=== PATIENT | female | born 1930 | race Caucasian/White ===

== ENCOUNTER 2016-05-26 19:45 | Inpatient (IN) ==
[2016-05-26 22:17] LABS: Basophils % 0.2 %; Eosinophils % 0.3 %; Hematocrit 37.9 % (35.3-44.9); Hemoglobin 12.3 g/dL (11.5-15.4); Immature Granulocytes % 0.6 % (0-4); Lymphocytes # 1.3 K/mcL (0.6-4.6); Lymphocytes % 8.9 %; Mean Corpuscular HGB Conc 32.5 g/dL (31.6-35.5); Mean Corpuscular Hemoglobin 27.8 pg (28.0-33.3); Mean Corpuscular Volume 85.6 fL (83.0-100.0); Monocytes # 1.3 K/mcL (0.0-1.3); Monocytes % 9.2 %; Neutrophils # 11.6 K/mcL (1.6-8.9); Platelet Count 369 K/mcL (140-400); Red Blood Count 4.43 M/mcL (3.82-4.97); Red Cell Distribution Width 15.5 % (11.5-14.5); Segmented Neutrophils % 80.8 %
[2016-05-26 22:29] LABS: Potassium 4.1 mEq/L (3.5-4.5)
[2016-05-26] MEDS ORDERED: 0.9 % Sodium Chloride 500 ML IV ONE (22:52)
--- NOTE | 2016-05-26 23:18 | Emergency Department Note ---
Disposition Clinical Impression: Acute kidney injury Hip fracture, left Qualifiers: Encounter type: initial encounter Fracture type: closed Qualified Code(s): S72.002A - Fracture of unspecified part of neck of left femur, initial encounter for closed fracture Leukocytosis Qualifiers: Leukocytosis type: other Qualified Code(s): D72.828 - Other elevated white blood cell count Disposition: Admitted As Inpatient Condition: Good Lower Extremity Injury HPI - General Chief Complaint: ED Extremity Injury, Lower Stated Complaint: Fall, R leg injury Time Seen by Provider: 05/26/16 21:09 Source: family Limitations: no limitations Nursing Notes Reviewed: Yes Vital Signs Reviewed: Yes - History of Present Illness HPI Narrative: Patient here after being called by urgent care for positive left hip fracture. Patient been taken there after sustaining a fall on [address]. Patient had been having difficulty with walking over for the past several days and has not been doing much so they took her there for evaluation. It is unknown whether the patient fell from mechanical or syncopal event. Patient has history of Alzheimer's and the daughter has been very protective of her not wanting to put her in a fpc or have her care for another way. Daughter is somewhat progressive. Nursing staff does have some concern about patient's home situation. Patient currently unable to do review of systems due to dementia. Pain seems to be localized to the left hip and left knee. - Related Data Home Medications Medication Instructions Recorded Confirmed Donepezil HCl [Donepezil HCl Odt] 10 mg PO HS 02/09/16 05/26/16 Levothyroxine [Synthroid] 100 mcg PO DAILY 02/09/16 05/26/16 Lisinopril [Zestril] 10 mg PO BID 02/09/16 05/26/16 Acetaminophen w/Cod 300-30 mg 1 tab PO Q6H PRN 05/26/16 05/26/16 [Tylenol w/Codeine #3] Cephalexin [Keflex] 500 mg PO TID 05/26/16 05/26/16 ClonazePAM [Klonopin] 0.5 mg PO QID 05/26/16 05/26/16 Diltiazem HCl [Cartia Xt] 180 mg PO HS 05/26/16 05/26/16 FLUoxetine HCl [PROzac] 20 mg PO DAILY 05/26/16 05/26/16 Glimepiride [Glimepiride] 1 mg PO DAILY 05/26/16 05/26/16 HYDROcodone/Acet 5/325 mg [[place] 1 tab PO Q6H PRN 05/26/16 05/26/16 5-325 mg] Hydroxyzine HCl 25 mg PO QID 05/26/16 05/26/16 Previous Rx's Medication Instructions Recorded Aspirin 81 mg PO DAILY tab.chew 02/13/16 Simvastatin [Zocor] 40 mg PO HS tablet 02/13/16 Allergies Allergy/AdvReac Type Severity Reaction Status Date / Time No Known Allergies Allergy Verified 05/26/16 20:37 Limitations: ROS unobtainable due to patients medical condition Past Medical History - Past Medical History Medical history: Reports: dementia, diabetes, atrial fibrillation, hypertension , thyroid disease Psychiatric history: Reports: anxiety - Social History Smoking Status: Former smoker Smokeless Tobacco Status: No Alcohol use: Reports: none Drug use: Reports: none Physical Exam - General Limitations: no limitations General appearance: alert - Head Head exam: atraumatic, normocephalic - Eye Eye exam: Present: normal appearance - ENT ENT exam: normal exam, mucous membranes dry - Neck Neck exam: Present: normal inspection - Chest Chest inspection: Present: normal inspection - Respiratory Respiratory exam: Present: normal lung sounds bilaterally. Absent: respiratory distress - Cardiovascular Cardiovascular exam: Present: regular rate, normal rhythm - Abdominal Exam Abdominal exam: Present: soft, Non-Tender - Extremities Exam Extremities exam: Present: normal inspection - Skin Skin exam: Present: warm, dry, intact Course - Reevaluation(s) Reevaluation #1: Screening labs ordered. Patient not in pain and less leg is manipulated. We will continue to monitor for treatment pain. - Consultations Consultation #1: Discussed with Dr. Greer. Patient to be admitted for preoperative clearance. Vital Signs Temperature 97.7 F 05/26/16 20:31 Pulse Rate 107 05/26/16 20:31 Respiratory Rate 16 05/26/16 20:31 Blood Pressure 136/76 05/26/16 20:31 O2 Sat by Pulse Oximetry 98 05/26/16 20:31 Temperature 97.7 F 05/26/16 20:31 Pulse Rate 107 05/26/16 20:31 Respiratory Rate 16 05/26/16 23:51 Blood Pressure 142/70 05/26/16 23:51 O2 Sat by Pulse Oximetry 98 05/26/16 20:31 Oxygen Delivery Oxygen Delivery Room Air Extremity Injury, Lower - Lab Data Result diagrams: 05/26/16 22:05 05/26/16 22:05 Lab Results 05/26/16 05/26/16 Range/Units 22:05 22:05 WBC 14.4 H (4.3-11.1) K/mcL RBC 4.43 (3.82-4.97) M/mcL Hgb 12.3 (11.5-15.4) g/dL Hct 37.9 (35.3-44.9) % MCV 85.6 (83.0-100.0) fL MCH 27.8 L (28.0-33.3) pg MCHC 32.5 (31.6-35.5) g/dL RDW 15.5 H (11.5-14.5) % Plt Count 369 (140-400) K/mcL MPV 9.0 L (9.4-12.4) fL Immature Gran % 0.6 (0-4) % Seg Neutrophils % 80.8 % Lymphocytes % 8.9 % Monocytes % 9.2 % Eosinophils % 0.3 % Basophils % 0.2 % Neutrophils # 11.6 H (1.6-8.9) K/mcL Lymphocytes # 1.3 (0.6-4.6) K/mcL Monocytes # 1.3 (0.0-1.3) K/mcL Eosinophils # 0.0 (0.0-0.6) K/mcL Basophils # 0.0 (0.0-0.2) K/mcL Sodium 136 (136-145) mEq/L Potassium 4.1 (3.5-4.5) mEq/L Chloride 103 (98-109) mEq/L Carbon Dioxide 19 (19-29) mEq/L BUN 37 H (7-20) mg/dL Creatinine 1.46 H (0.57-1.11) mg/dL Est GFR ( Amer) 41 L (> 60) Est GFR (Non-Af Amer) 34 L (> 60) BUN/Creatinine Ratio 25 (6-26) Glucose 430 H (70-99) mg/dL Calculated Osmolality 309 H (280-300) Calcium 9.0 (8.6-10.8) mg/dL Attestation Statement - Attestation Attestation: Dr Cain note: Pt seen in conjunction w/ Resident Nixon Corona; I spent face to face time w/ pt and agree w/ the pt's treatment and disposition; See his charting for complete documentation; I have reviewed the lab results; imaging of the left hip was reviewed. Patient's story at home is vague. The family member at the bedside is very agitated and over bearing when we examine the patient. Patient follows commands. There was no witnessed mechanism of injury but they realized the patient has been nonambulatory for 3 days in bed. No signs of head trauma. The admitting doctor was informed of the strange family dynamics. She is admitted in stabilized and improved condition. dehydrated and in need of orthopedic and medical care
[2016-05-26] MEDS ORDERED: Dextrose Gel 15 GM PO PRN ×2 (23:42)
[2016-05-26] MEDS ORDERED: Ipratropium/Albuterol Neb 3 ML IH PRN (23:42)
[2016-05-26] MEDS ORDERED: *HR* OxyCODONE Immed Rel 5 MG TABLET PO PRN (23:42)
[2016-05-26] MEDS ORDERED: Ondansetron 4 MG/2 ML VIAL IVP PRN (23:42)
[2016-05-26] MEDS ORDERED: Naloxone 0.4 MG/ML INJ IVP PRN (23:42)
[2016-05-26] MEDS ORDERED: *HR* Dextrose 50 % in Water (Syg) 50 ML SYRINGE IVP PRN (23:42)
[2016-05-26] MEDS ORDERED: *HR* Morphine 2 MG/ML SYRINGE IVP PRN (23:42)
[2016-05-26] MEDS ORDERED: D5% in Water 1,000 ML IV PRN (23:42)
[2016-05-26] MEDS ORDERED: 0.9 % Sodium Chloride 1,000 ML IVC SCH (23:45)
[2016-05-26] MEDS ORDERED: Insulin LISPRO 300 UNITS/3 ML VIAL SQ ONE (23:50)
--- NOTE | 2016-05-26 23:57 | Internal Med History&Physical ---
Date of Encounter: 05/26/16 Time of Encounter: 23:00 Assessment and Plan (1) Chronic atrial fibrillation Current visit: Yes Status: Chronic . (2) Diabetic hyperosmolar non-ketotic state Current visit: Yes Status: Acute . (3) Acute kidney injury Current visit: Yes Status: Acute . (4) Hip fracture, left Current visit: Yes Status: Acute . Qualifiers: Encounter type: initial encounter Fracture type: closed Qualified Code(s) : S72.002A - Fracture of unspecified part of neck of left femur, initial encounter for closed fracture (5) Age-related physical debility Current visit: Yes Status: Chronic . (6) Mixed hyperlipidemia Current visit: Yes Status: Chronic . (7) Multiple falls Current visit: Yes Status: Acute . (8) Systemic inflammatory response syndrome Current visit: Yes Status: Acute . (9) Dementia Current visit: Yes Status: Chronic . Qualifiers: Dementia type: Alzheimer's disease Alzheimer's disease onset: late-onset Dementia behavioral disturbance: with behavioral disturbance Qualified Code(s) : G30.1 - Alzheimer's disease with late onset; F02.81 - Dementia in other diseases classified elsewhere with behavioral disturbance (10) Diabetes Current visit: Yes Status: Chronic . Qualifiers: Diabetes mellitus type: type 2 Diabetes mellitus complication status: with unspecified complications Diabetes mellitus catalyst impregnator insulin use: without snf use Qualified Code(s): E11.8 - Type 2 diabetes mellitus with unspecified complications (11) Hypertension Current visit: Yes Status: Chronic . Qualifiers: Hypertension type: essential hypertension Qualified Code(s): I10 - Essential (primary) hypertension (12) Hypothyroidism Current visit: Yes Status: Chronic . Qualifiers: Hypothyroidism type: acquired Qualified Code(s): E03.9 - Hypothyroidism, unspecified (13) Old cerebrovascular accident (CVA) without late effect Current visit: Yes Status: Chronic .. Internal Medicine - H&P: HPI Chief complaint: Acute hip and leg injury Admitted From: Emergency Dept Plans for Post Hospital Care: Home History of present illness: Ms. Hester is a 85 year old female history significant for advanced dementia Alzheimer's type, hypothyroidism, hypertension, dyslipidemia, osteoarthritis, osteoporosis, type 2 diabetes mellitus, depression and anxiety, chronic atrial fibrillation, multiple/frequent falls, ( [id number] score =5; no chronic anticoagulation due to frequent falls), H/o CVAs/TIAs, former smoker The patient was visited and interviewed and examined. The patient is encephalopathic. Not verbally responsive. Reacting only to noxious stimuli. History gleaned from information is shared by daughter at the bedside and collective records. Patient is admitted to [facility] via the emergency department she was in the company of family with report of recent injury to her left leg. That was seen in urgent care center for recent mechanical fall with left hip fracture. She was sustained on 's [place]. Does have diminished ability to complete her activities of daily living family took her to the urgent care center for additional assessment. The actual fall was not witnessed by family however she was seen in moments of the fall. History is noteworthy for multiple mechanical falls due to gait instability as a consequence of degenerative disc disease of spine and osteoarthritis of knees and hips well as previous CVA with left sided weakness. Patient normally ambulates with a walker. She however at the time of this injury was without her walker within a few steps of her hospital bed when she fell. As a consequence her home mom treatments for pain management proved ineffective bringing her to the urgent care center and then ultimately to the emergency department for evaluation. Radiographic studies that were obtained confirmed subcapital left femoral neck fracture. Due to patient's dementia a detailed review of systems cannot be obtained. The daughter however chest positive has been no significant change the patient's medical management recent days. There was also no overt change in patient's clinical status in recent days prior to the fall. Findings in the ED: Temperature 97.7 pulse 107 respirations 16 BP 136/76 O2 saturation 98% room air. WBC 14.4 hemoglobin 12.3 platelets 369,000. MCH 27.8. RDW 15.5. Differential shows increase in neutrophils. Metabolic panel normal except BUN 37 and creatinine 1.46 GFR 34. Glucose 430 osmolality 309. Chest x-ray showed no acute or active cardiopulmonary process. Left femur x-ray series demonstrates findings suspicious for subcapital left femoral neck fracture. Serpiginous lesion distal femur. Diagnostic considerations include bone infarct and enchondroma. Follow-up radiograph recommended. Pelvis x-ray series demonstrated acute traumatic subcapital left femoral neck fracture with mild varus angulation. Left knee x-ray series demonstrated no significant osseous abnormality of the left knee. A 3.4 cm sclerotic density in the distal femur was noted. Likely benign chondroid lesion versus sequelae of prior bone infarct. Follow-up study recommended. Preliminary impression suggests evident subcapital left femoral neck fracture in a patient with long-standing history of tubal/frequent mechanical falls. 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 Systemic inflammatory response syndrome criteria are present. This is felt to be of a non-infectious source. Sepsis criteria and are not fulfilled. Hyperosmolar nonketotic hyperglycemia is apparent. Stability of patient's diabetes management will be investigated. Acute kidney injury stage III is noted likely a combination of the dehydration and hypoperfusion. The patient's presenting complaint, clinical findings and comorbidities she is at risk for further acute clinical decline and morbidity in this setting. Workup and treatment will proceed comprehensively. Cumulative laboratory and radiographic data base was reviewed, considered and discussed. Pertinent ancillary medical records including ECW and PCI documentation, when available, was reviewed and considered. Given the patient's presenting concerns, past medical history, clinical findings and symptoms, she is admitted at this time will undergo further evaluation and disposition. Orders were written as per the computerized physician linseed oil order filler system.......................................................................... .................... Consultative opinions will be sought as clinical circumstances justify. Initial consultative opinion has been requested of orthopedic surgery. Pain management needs will be addressed. Laboratory and radiographic data base will be updated as appropriate. Studies include: Cultures of blood and urine, cardiac injury panel, BNP, metabolic and hematologic panels, magnesium, phosphorus, ionized calcium, thyroid panel, lipid profile, HbgA1c, C-peptide, CRP, sed rate, vitamin B12, folic acid, vitamin D panel, urinalysis, coagulation profile, blood gas, lactic acid, serologies, etc. Precautions: Aspiration, fall, delirium protocol/surveillance initiated. Telemetry with continuous hemodynamic monitoring and pulse oximetry initiated. Empiric antibody coverage: pending culture data. Special studies: Left femur x-ray, left knee x-ray, pelvis x-rays, chest x-ray, telemetry, EKG, echocardiogram. Pulmonary toilet: Incentive spirometry. When needed erosol bronchodilator, mucolytic, antitussive. Supplemental oxygen. Corticosteroid therapy may be employed. CPAP/BiPAP supplemental oxygen delivery may be employed. Aerosol Mucomyst therapy may be employed. Fluid and electrolyte repletion efforts will proceed. Careful attention to fluid balance and renal recovery will be emphasized. Avoidance of nephrotoxic exposure and adverse drug drug interaction in the setting of impaired renal function will be monitored closely. Acute coronary syndrome protocol/surveillance initiated. DVT and PUD prophylaxis initiated: PPI therapy, intermittent pneumatic cuffs. Subcutaneous heparin. Early ambulation will be encouraged as her circumstances allow. Immunization updates recommended. Influenza and pneumococcal vaccinations as part of ongoing preventative healthcare recommendations strongly recommended. Smoking cessation counseling will be addressed in patient's circumstances permit. Patient is reported to be a former smoker. Advanced care directive discussion briefly addressed. Patient does declare healthcare restrictions. The patient's daughter as healthcare surrogate and power of commonwealth attorney validates her mother's wishes at this time in keeping with previously completed living will. Cardiovascular risk appraisal and cardiovascular risk reduction efforts will be emphasized. Physical and occupational therapy consulted to assess patient's functional capacity and progress mobility of her circumstances permit. Sliding scale and basal insulin coverage, ADA dietary restraint and schedule an as-needed basis fingerstick glucose assessments were initiated. Nutrition/diabetes education counseling may be considered as circumstances justify. Outpatient medication schedules will be reviewed confirmed and facilitated as appropriate. Reconciliation of home treatments including adjustments, substitutions and reintroduction into the treatment regimen will addressed necessary maintenance therapies for chronic pre-existing medical conditions. Plan of care has been reviewed and discussed in detail with the patient's daughter in attendance. Questions addressed. Hospital course is dependent on clinical findings, treatment response and potential consultative interventions. Patient is at risk for further acute clinical decline and morbidity due to her advanced age, presenting chief complaints/clinical findings and comorbidities. Condition is serious. Prognosis is guarded. CODE STATUS is DO NOT RESUSCITATE, comfort care arrest. Past Med Surg Social Fam HX - Past Medical History Source: old records reviewed Medical history: arthritis, atrial fibrillation, dementia, diabetes, hyperlipidemia, hypertension, osteoporosis, thyroid disease, other (Basal cell skin cancers.) Psychiatric history: anxiety, depression, other - Past Surgical History Surgical History: other - Social History Smoking Status: Former smoker Smokeless Tobacco Status: No Alcohol use: none Drug use: none Current living situation: With Family Activity Level: Mostly sedentary Recent Out of Country Travel Within the Last 8 Weeks: No Exposure or Possible Exposure to Illness During Travel: No - Family History Sister Twin of Family Member: Yes, Fraternal Living Status: Hx Family Cardiac Disorders: No Hx Family Respiratory Disorders: Yes Hx Family Cancer: No Hx Family GI Disorders: No Hx Family Endocrine Disorder: No Hx Family Neuromuscular Disorders: No Hx Family Neurologic Disorders: No Hx Family HEENT Disorders: No Hx Family Autoimmune Disorders: No Internal Medicine - H&P: Meds Donepezil HCl [Donepezil HCl Odt] 10 mg PO HS 02/09/16 [History] Levothyroxine [Synthroid] 100 mcg PO DAILY 02/09/16 [History] Lisinopril [Zestril] 10 mg PO BID 02/09/16 [History] Aspirin 81 mg PO DAILY tab.chew 02/13/16 [Rx] Simvastatin [Zocor] 40 mg PO HS tablet 02/13/16 [Rx] Acetaminophen w/Cod 300-30 mg [Tylenol w/Codeine #3] 1 tab PO Q6H PRN 05/26/16 [ History] Cephalexin [Keflex] 500 mg PO TID 05/26/16 [History] ClonazePAM [Klonopin] 0.5 mg PO QID 05/26/16 [History] Diltiazem HCl [Cartia Xt] 180 mg PO HS 05/26/16 [History] FLUoxetine HCl [PROzac] 20 mg PO DAILY 05/26/16 [History] Glimepiride [Glimepiride] 1 mg PO DAILY 05/26/16 [History] HYDROcodone/Acet 5/325 mg [[place] 5-325 mg] 1 tab PO Q6H PRN 05/26/16 [History] Hydroxyzine HCl 25 mg PO QID 05/26/16 [History] Allergies No Known Allergies Allergy (Verified 05/26/16 20:37) ROS unobtainable: due to mental status All Systems PM: A 10-system review of systems was performed and is negative for pertinent findings except as documented above in the HPI. Patient is an honest circumstances of the patient's due to advanced dementia. Detailed is collected from medical records, family members, attending medical staff commentary. - Constitutional Constitutional: as per HPI - EENT Eyes: as per HPI Ears: as per HPI Nose, mouth and throat: as per HPI - Cardiovascular Cardiovascular ROS IM: as per HPI - Respiratory Respiratory: as per HPI - Gastrointestinal Gastrointestinal: as per HPI - Genitourinary Genitourinary: as per HPI - Musculoskeletal Musculoskeletal ROS IM: as per HPI - Integumentary Integumentary IM: as per HPI - Neurological Neurological ROS: as per HPI - Psychiatric Psychiatric: as per HPI - Endocrine Endocrine IM: as per HPI - Hematologic/Lymphatic Hematologic/Lymphatic: as per HPI - Allergic/Immunologic Allergic/Immunologic: as per HPI - Constitutional Vitals: Temp Pulse Resp BP Pulse Ox 97.7 F 107 16 142/70 98 05/26/16 20:31 05/26/16 20:31 05/26/16 23:51 05/26/16 23:51 05/26/16 20:31 General appearance: Present: A&O X 1, disheveled, mild distress, obese - Head Head exam: Present: atraumatic, normocephalic Additional comments: Basal cell carcinoma lesions noted on face along right ALA self-inflicted excoriations - Eye Eye exam: Present: EOMI, PERRL, conjuntiva pink, sclera anicteric Pupils: Present: normal accommodation - ENT ENT exam: Present: mucous membranes moist, normal external ear exam, normal oropharynx - Neck Neck exam general surgery: Present: full ROM, supple, trachea midline. Absent: lymphadenopathy, tenderness, nuchal rigidity - Respiratory Respiratory exam: Present: decreased breath sounds, CTAB. Absent: accessory muscle use, rales, rhonchi, wheezes - Cardiovascular Cardiovascular exam: Present: distant heart sounds, irregular rhythm, +S1, +S2. Absent: diastolic murmur, gallop, rubs, systolic murmur - GI/Abdominal GI/Abdominal exam: Present: diminished bowel sounds, soft, no peritoneal signs. Absent: distended, tenderness - Extremities Exam Extremities exam: Present: normal capillary refill, warm, radial pulses palpable and symetrical. Absent: calf tenderness, cyanotic, full ROM (Limited range of motion of left lower extremity.), pedal edema - Expanded Lower Extremities Exam Neuro vascular tendon exam: Present: no vascular compromise, significant pain with passive ROM of distal joint Gait: Present: not tested/not observed - Neurological Exam Neurological exam: Present: alert, altered, CN II-XII intact, motor sensory deficit. Absent: oriented X3, strengths equal and symetr throughout, pronater drift, facial droop, speech deficit - Expanded Neurological Exam Neurological exam expanded: Present: inattentive, protecting the airway. Absent : expressive aphasia, receptive aphasia Patient oriented to: Present: person. Absent: place, time Coma Scale Eye Opening: To Pain Coma Scale Motor Response: Withdraws to Pain Coma Scale Verbal Response: Confused Coma Scale Total: 10 - Psychiatric Psychiatric exam: Present: flat affect - Skin Skin exam: Present: dry, intact, warm. Absent: petechiae, rash, urticaria, vesicles Internal Med - H&P Results - Labs CBC & Chem 7: 05/26/16 22:05 05/26/16 22:05 - Impressions Vital Signs Temp Pulse Resp BP Pulse Ox 05/26/16 23:51 16 142/70 05/26/16 20:31 97.7 F 107 16 136/76 98 Intake and Output 05/26/16 05/26/16 05/26/16 07:59 15:59 23:59 Intake Total 500 / 500 Balance 500 / 500 Intake: IV Fluids 500 / 500 0.9 % Sodium Chloride 500 500 / 500 ML @ 9999 mls/hr IV BOLUS ONE Rx#:[id number] Other: Weight 72.575 kg Patient Weight 05/26/16 23:59 Weight 72.575 kg Short CBC 05/26/16 Range/Units 22:05 WBC 14.4 H (4.3-11.1) K/mcL Hgb 12.3 (11.5-15.4) g/dL Hct 37.9 (35.3-44.9) % Plt Count 369 (140-400) K/mcL Neutrophils # 11.6 H (1.6-8.9) K/mcL BMP 05/26/16 Range/Units 22:05 Sodium 136 (136-145) mEq/L Potassium 4.1 (3.5-4.5) mEq/L Chloride 103 (98-109) mEq/L Carbon Dioxide 19 (19-29) mEq/L BUN 37 H (7-20) mg/dL Creatinine 1.46 H (0.57-1.11) mg/dL Glucose 430 H (70-99) mg/dL Calcium 9.0 (8.6-10.8) mg/dL Abnormal lab results WBC 14.4 K/mcL (4.3-11.1) H 05/26/16 22:05 MCH 27.8 pg (28.0-33.3) L 05/26/16 22:05 RDW 15.5 % (11.5-14.5) H 05/26/16 22:05 MPV 9.0 fL (9.4-12.4) L 05/26/16 22:05 Neutrophils # 11.6 K/mcL (1.6-8.9) H 05/26/16 22:05 BUN 37 mg/dL (7-20) H 05/26/16 22:05 Creatinine 1.46 mg/dL (0.57-1.11) H 05/26/16 22:05 Est GFR ( Amer) 41 (> 60) L 05/26/16 22:05 Est GFR (Non-Af Amer) 34 (> 60) L 05/26/16 22:05 Glucose 430 mg/dL (70-99) H 05/26/16 22:05 Calculated Osmolality 309 (280-300) H 05/26/16 22:05 No Known Allergies Allergy (Verified 05/26/16 20:37) Laboratory Results WBC 14.4 K/mcL (4.3-11.1) H 05/26/16 22:05 RBC 4.43 M/mcL (3.82-4.97) 05/26/16 22:05 Hgb 12.3 g/dL (11.5-15.4) 05/26/16 22:05 Hct 37.9 % (35.3-44.9) 05/26/16 22:05 MCV 85.6 fL (83.0-100.0) 05/26/16 22:05 MCH 27.8 pg (28.0-33.3) L 05/26/16 22:05 MCHC 32.5 g/dL (31.6-35.5) 05/26/16 22:05 RDW 15.5 % (11.5-14.5) H 05/26/16 22:05 Plt Count 369 K/mcL (140-400) 05/26/16 22:05 MPV 9.0 fL (9.4-12.4) L 05/26/16 22:05 Immature Gran % 0.6 % (0-4) 05/26/16 22:05 Seg Neutrophils % 80.8 % 05/26/16 22:05 Lymphocytes % 8.9 % 05/26/16 22:05 Monocytes % 9.2 % 05/26/16 22:05 Eosinophils % 0.3 % 05/26/16 22:05 Basophils % 0.2 % 05/26/16 22:05 Neutrophils # 11.6 K/mcL (1.6-8.9) H 05/26/16 22:05 Lymphocytes # 1.3 K/mcL (0.6-4.6) 05/26/16 22:05 Monocytes # 1.3 K/mcL (0.0-1.3) 05/26/16 22:05 Eosinophils # 0.0 K/mcL (0.0-0.6) 05/26/16 22:05 Basophils # 0.0 K/mcL (0.0-0.2) 05/26/16 22:05 Sodium 136 mEq/L (136-145) 05/26/16 22:05 Potassium 4.1 mEq/L (3.5-4.5) 05/26/16 22:05 Chloride 103 mEq/L (98-109) 05/26/16 22:05 Carbon Dioxide 19 mEq/L (19-29) 05/26/16 22:05 BUN 37 mg/dL (7-20) H 05/26/16 22:05 Creatinine 1.46 mg/dL (0.57-1.11) H 05/26/16 22:05 Est GFR ( Amer) 41 (> 60) L 05/26/16 22:05 Est GFR (Non-Af Amer) 34 (> 60) L 05/26/16 22:05 BUN/Creatinine Ratio 25 (6-26) 05/26/16 22:05 Glucose 430 mg/dL (70-99) H 05/26/16 22:05 Calculated Osmolality 309 (280-300) H 05/26/16 22:05 Calcium 9.0 mg/dL (8.6-10.8) 05/26/16 22:05 Impressions Chest X-Ray 05/26/16 21:20 IMPRESSION: No acute process. D/ / Bashir Nelson MD / Bashir Nelson MD Interpreting Provider: Bashir Nelson MD Femur X-Ray 05/26/16 21:45 IMPRESSION: 1. Findings highly suspicious for a subcapital left femoral neck fracture. 2. Serpiginous lesion distal femur. Diagnostic considerations include a bone infarct and enchondroma. Follow-up radiograph is recommended to assess stability D/ / Cooper Linda MD / Cooper Linda MD Interpreting Provider: Cooper Linda MD - Diagnostic Studies Other Images Additional comments: 02/09/2016 echocardiogram with saline contrast LVEF grossly 65%. Normal LV chamber size and wall thickness. LV function appeared normal. Mild left ventricular diastolic dysfunction. Normal right ventricular structure and function. No obvious significant intracardiac shunting with agitated saline. No evidence of pulmonary hypertension. No obvious significant valvular dysfunction.
[2016-05-27] MEDS: Insulin DETEMIR 100 UNIT/ML X5UNITS SQ SCH ×2 (01:26→21:26)
[2016-05-27] MEDS: Insulin LISPRO 300 UNITS/3 ML VIAL SQ SCH ×4 (01:27→18:45)
[2016-05-27 01:55] LABS: Bilirubin,Urine Small (Negative); Blood,Urine Small (Negative); Clarity,Urine Turbid (Clear); Color,Urine Dark Yellow (Yellow); Glucose,Urine (UA) 250 mg/dL (Normal); Ketones,Urine Negative (Negative); Leukocyte Esterase,Urine Large (Negative); Nitrite,Urine Negative (Negative); PH,Urine 5.5 pH Units (5.0-8.0); Protein,Urine 30 mg/dL (Neg-Trace); Specific Gravity,Urine 1.023 (1.010-1.025); Urobilinogen,Urine Normal (Normal)
[2016-05-27 02:12] LABS: WBC,Urine TNTC per hpf (0-3)
[2016-05-27 02:13] LABS: Bacteria,Urine Moderate per hpf (None-Few); Mucus,Urine Few (Few); Squamous Epithelial Cell,Urine Moderate per lpf (None-Few); Transitional Epi Cells,Urine Few per hpf (None-Few)
[2016-05-27] MEDS: *HR* Heparin 5,000 UNIT/ML VIAL SQ SCH ×2 (05:38→16:13)
[2016-05-27 07:03] LABS: INR 1.1; Prothrombin Time 11.7 Seconds (9.4-12.1)
[2016-05-27 07:06] LABS: Activated Partial Thrombo Time 23.3 Seconds (26.0-36.0)
[2016-05-27 07:18] LABS: Alanine Aminotransferase 57 Units/L (0-55); Albumin 2.3 g/dL (3.5-5.0); Albumin/Globulin Ratio 0.6 (1.1-2.2); Alkaline Phosphatase 103 Units/L (38-126); Aspartate Amino Transferase 37 Units/L (5-34); BUN/Creatinine Ratio 33 (6-26); Bilirubin,Total 0.4 mg/dL (0.2-1.2); Blood Urea Nitrogen 33 mg/dL (7-20); Calcium 8.7 mg/dL (8.6-10.8); Carbon Dioxide 21 mEq/L (19-29); Chloride 110 mEq/L (98-109); Chol/HDL Ratio 4.6 (0-4.9); Cholesterol 172 mg/dL (< 200); Globulin 4.1 g/dL (2.4-3.5); Glucose 176 mg/dL (70-99); HDL Cholesterol 37 mg/dL (40-59); LDL Cholesterol,Calculated 96 mg/dL (0-99); Magnesium 1.6 mg/dL (1.6-2.6); Osmolality,Calculated 304 (280-300); Phosphorous 3.2 mg/dL (2.3-4.7); Potassium 3.7 mEq/L (3.5-4.5); Sodium 141 mEq/L (136-145); Total Protein 6.4 g/dL (6.0-8.3); Triglycerides 196 mg/dL (< 150); eGFR For African Americans > 60 (> 60); eGFR For Non-African Americans 53 (> 60)
[2016-05-27 07:33] LABS: VBG HCO3 22.9 mEq/L (21-27); VBG PH 7.45 pH Units (7.32-7.42)
[2016-05-27 07:39] LABS: Thyroid Stimulating Hormone 9.712 mcIU/mL (0.350-4.840)
[2016-05-27] MEDS: clonazePAM 0.5 MG TABLET PO SCH ×4 (07:49→21:25)
[2016-05-27] MEDS: FLUoxetine 20 MG CAPSULE PO SCH (07:49)
[2016-05-27] MEDS ORDERED: Aspirin 81 MG TAB.CHEW PO SCH (09:00)
[2016-05-27 10:42] LABS: C-Reactive Protein 143 mg/L (Less than 5)
--- NOTE | 2016-05-27 10:55 | ECHO - Doppler Report ---
Limited Echocardiogram Name: Teresa Hester Date of Study: 05/27/2016 Date: 1930 Ht: 65.0 in Medical Record#: [id number] Age: 85 Wt: 160.0 lb Gender: Female BSA: 1.8 Order #: [id number] Location: [facility] Room #: [facility] Reading Physician: Joe Francois DO, FACC, FASE, FASNC Green Material Value Added Assessor: Jose Johnston Ordering Physician: Adams Pimentel MD Primary Physician: Elvin Meza MD Indications: Preoperative exam Impressions: LVEF 60-65%. Normal LV chamber size, wall thickness and function. This was a limited study for LV function. Valves were not assessed. Left Ventricular Wall Motion: Rest Echo Findings All wall segments showed normal motion. Findings: Study Quality * Technically adequate exam. ECG Findings * Normal sinus rhythm. Left Ventricle * LVEF 60-65%. * Normal LV chamber size, wall thickness and function. * Atypical septal motion of unclear etiology. Right Ventricle * Normal right ventricular structure and function. IVC * Normal IVC dimensions and inspiratory collapse. History Hypertension Hypercholesteremia History of CAD/PTCA Valvular Disease 02/09/16 a Previous Echo was performed. Measurements: BP: 133/ 75 2D Normal Values RVIDd: 2.73 cm <2.7 cm IVSd: .93 cm 0.6 - 1.0 cm LVIDd: 4.29 cm 3.7 - 5.6 cm LVPWd: .98 cm 0.6 - 1.1 cm LVIDs: 2.58 cm 1.5 - 3.6 cm AO: 2.30 cm < 4.0 cm LA: 3.70 cm 2.0 - 4.0cm %FS: 39.90 cm >25 % LA volume: Updated by Joe Francois DO, FACC, FASE, FASNC on 05/27/2016 10:49:27 AM electronically signed on 05/27/2016 10:49:46 AM with status of Final Wall Motion [place]: 1=Normal, 2=Hypokinesis, 3=Akinesis, 4=Dyskinesis, 5=Aneurysmal, 6=Hyperkinetic, X=Not Visualized (Blank)=Missing
--- NOTE | 2016-05-27 11:57 | Orthopedic Consult Note ---
Date of Encounter: 05/27/16 Time of Encounter: 11:54 Assessment and Plan (1) Hip fracture, left Current Visit: Yes Status: Acute I did have a lengthy conversation with the patient's niece who is power of health care attorney. I explained the diagnosis in detail with her. The patient has a left displaced femoral neck fracture. Treatment options were discussed, and my recommendation was for hemiarthroplasty of the left hip in order to provide pain control and stabilize the hip. The risks discussed included but were not limited to bleeding, infection, anesthesia risks, damage to neurovascular structures, tendons, ligaments, and bone. Also discusses was the risk of continued symptoms and possible need for further procedures. The patient is also at risk for dislocation. I explained this to the patient's niece and simple terms and she wished to proceed and consent was obtained. I also did discuss the distal femoral lesion and the radiologist feels that this is a benign process. We will however observe this. It does not appear to be causing any structural issues with the bone. Qualifiers: Encounter type: initial encounter Fracture type: closed Qualified Code(s) : S72.002A - Fracture of unspecified part of neck of left femur, initial encounter for closed fracture History of Present Illness HPI: Ms. Hester is a 85 year old female who lives with her niece. She has multiple medical comorbidities. She is a walker assisted ambulator. The patient had an unwitnessed fall at home over the 's weekend. The niece indicates that she did not know that it was a fracture, but the patient had continued disability and the patient was brought eventually to the urgent care and transferred to the ER after finding a left displaced femoral neck fracture. Patient was then subsequently admitted to the hospitalist and was found to have a urinary tract infection for which she is now being treated by ceftriaxone. Also of note the patient does have a history of basal cell carcinoma on the face. She also has an unknown ulcerative type lesion on the left thumb which is chronic and was just recently biopsied by a assistant sales center manager. The patient has significant dementia and is not able to verbalize or complaints. Therefore I am unable to obtain a complete history from the patient herself. Past Med Surg Social Fam HX - Past Medical History Medical history: arthritis, atrial fibrillation, dementia, diabetes, hyperlipidemia, hypertension, osteoporosis, thyroid disease, other (Basal cell skin cancers.) Psychiatric history: anxiety, depression, other - Past Surgical History Surgical History: other - Social History Smoking Status: Former smoker Smokeless Tobacco Status: No Alcohol use: none Drug use: none - Family History Sister Age: 83 Twin of Family Member: Yes, Fraternal Living Status: Hx Family Cardiac Disorders: No Hx Family Respiratory Disorders: Yes Hx Family Cancer: No Hx Family GI Disorders: No Hx Family Endocrine Disorder: No Hx Family Neuromuscular Disorders: No Hx Family Neurologic Disorders: No Hx Family HEENT Disorders: No Hx Family Autoimmune Disorders: No Medications and Allergies Donepezil HCl [Donepezil HCl Odt] 10 mg PO HS 02/09/16 [History] Levothyroxine [Synthroid] 100 mcg PO DAILY 02/09/16 [History] Lisinopril [Zestril] 10 mg PO BID 02/09/16 [History] Aspirin 81 mg PO DAILY tab.chew 02/13/16 [Rx] Simvastatin [Zocor] 40 mg PO HS tablet 02/13/16 [Rx] Acetaminophen w/Cod 300-30 mg [Tylenol w/Codeine #3] 1 tab PO Q6H PRN 05/26/16 [ History] Cephalexin [Keflex] 500 mg PO TID 05/26/16 [History] ClonazePAM [Klonopin] 0.5 mg PO QID 05/26/16 [History] Diltiazem HCl [Cartia Xt] 180 mg PO HS 05/26/16 [History] FLUoxetine HCl [PROzac] 20 mg PO DAILY 05/26/16 [History] Glimepiride [Glimepiride] 1 mg PO DAILY 05/26/16 [History] HYDROcodone/Acet 5/325 mg [[place] 5-325 mg] 1 tab PO Q6H PRN 05/26/16 [History] Hydroxyzine HCl 25 mg PO QID 05/26/16 [History] Allergies No Known Allergies Allergy (Verified 05/26/16 20:37) ROS unobtainable: due to mental status Physical Exam - Constitutional Vitals: Temp Pulse Resp BP Pulse Ox 98.2 F 85 16 138/82 94 L 05/27/16 11:00 05/27/16 11:00 05/27/16 11:00 05/27/16 11:00 05/27/16 11:00 Constitutional -Vitals reviewed -The patient is well developed and well nourished. -The patient is well groomed. Psychiatric -Dementia -Unable to obtain a neurologic exam due to her mental status. Respiratory: -Respiratory effort normal Abdomen: -Soft abdomen -Non tender -Non distended: Left upper extremity: -No deformities. The overlying skin is intact. No obvious signs of acute trauma. -There is an ulcerative lesion on the distal half of the nailbed of the thumb which is the entire width. No concern for infection. -No tenderness to palpation throughout. -No significant pain with passive motion of the shoulder, elbow, wrist, and fingers within the limits of the bed. -Radial pulse is present; Fingers have good capillary refill. Right upper extremity: -No deformities. The overlying skin is intact. No obvious signs of acute trauma. -No tenderness to palpation throughout. -No significant pain with passive motion of the shoulder, elbow, wrist, and fingers within the limits of the bed. -Radial pulse is present; Fingers have good capillary refill. Left lower extremity: -The limits shortened and externally rotated. -Tenderness in the groin as well as pain with any movement of the thigh. -Toes have good capillary refill. Right lower extremity: -No deformities. The overlying skin is intact. No obvious signs of acute trauma. -No tenderness to palpation throughout. -No pain with passive motion of the hip, knee, ankle, and toes within the limits of the bed. -No pain with axial loading of the thigh. -Toes have good capillary refill. Results - Labs Result Diagrams: 05/26/16 22:05 05/27/16 06:48 Labs: Abnormal lab results WBC 14.4 K/mcL (4.3-11.1) H 05/26/16 22:05 MCH 27.8 pg (28.0-33.3) L 05/26/16 22:05 RDW 15.5 % (11.5-14.5) H 05/26/16 22:05 MPV 9.0 fL (9.4-12.4) L 05/26/16 22:05 Neutrophils # 11.6 K/mcL (1.6-8.9) H 05/26/16 22:05 APTT 23.3 Seconds (26.0-36.0) L 05/27/16 06:48 VBG pH 7.45 pH Units (7.32-7.42) H 05/27/16 06:48 VBG pCO2 33 mmHg (41-51) L 05/27/16 06:48 VBG pO2 156 mmHg (25-40) H 05/27/16 06:48 Chloride 110 mEq/L (98-109) H 05/27/16 06:48 BUN 33 mg/dL (7-20) H 05/27/16 06:48 Est GFR (Non-Af Amer) 53 (> 60) L 05/27/16 06:48 BUN/Creatinine Ratio 33 (6-26) H 05/27/16 06:48 Glucose 176 mg/dL (70-99) H 05/27/16 06:48 POC Glucose 330 (58-89) H 05/27/16 01:02 Hemoglobin A1c 7.0 % (-5.6) H 05/27/16 06:48 Calculated Osmolality 304 (280-300) H 05/27/16 06:48 Ionized Calcium 1.10 mmol/L (1.15-1.35) L 05/27/16 06:48 AST 37 Units/L (5-34) H 05/27/16 06:48 ALT 57 Units/L (0-55) H 05/27/16 06:48 C-Reactive Protein 143 mg/L (Less than 5) H 05/27/16 06:48 Albumin 2.3 g/dL (3.5-5.0) L 05/27/16 06:48 Globulin 4.1 g/dL (2.4-3.5) H 05/27/16 06:48 Albumin/Globulin Ratio 0.6 (1.1-2.2) L 05/27/16 06:48 Triglycerides 196 mg/dL (< 150) H 05/27/16 06:48 VLDL Cholesterol, Calc 39 mg/dL (< 31) H 05/27/16 06:48 HDL Cholesterol 37 mg/dL (40-59) L 05/27/16 06:48 TSH 9.712 mcIU/mL (0.350-4.840) H 05/27/16 06:48 Urine Clarity Turbid (Clear) A 05/27/16 01:40 Urine Protein 30 mg/dL (Neg-Trace) H 01/04/17 01:40 Urine Glucose (UA) 250 mg/dL (Normal) H 05/27/16 01:40 Urine Blood Small (Negative) H 05/27/16 01:40 Urine Bilirubin Small (Negative) H 05/27/16 01:40 Ur Leukocyte Esterase Large (Negative) H 05/27/16 01:40 Urine Microscopic RBC 5-15 per hpf (0-3) H 05/27/16 01:40 Urine Microscopic WBC TNTC per hpf (0-3) H 05/27/16 01:40 Ur Squamous Epith Cells Moderate per lpf (None-Few) H 05/27/16 01:40 Urine Bacteria Moderate per hpf (None-Few) H 05/27/16 01:40 All other labs normal. - Diagnostic results Pelvic AP x-ray: image reviewed (Left displaced femoral neck fracture.) Knee x-ray: image reviewed (Lesion of calcific density confined to the cancellus bone of the distal femur, presumed to be a benign process.) Consult Discharge Plan - Plan Referrals: Elvin Meza MD [Primary Care Provider] -
--- NOTE | 2016-05-27 12:09 | Electrocardiograph Report ---
[facility] Test Date: 2016-05-26 Pat Name: Teresa Hester Department: [id number] Room: [facility] Gender: F Astrobiologist: [facility] : 1930 Requested By: Nixon Corona Order Number: [id number] Reading MD: Damian Guido MD Measurements Intervals [place] Rate: 98 P: 68 NE: 155 QRS: -25 QRSD: 86 T: 77 QT: 332 QTc: 388 Interpretive Statements SINUS RHYTHM BORDERLINE LEFT AXIS DEVIATION NONSPECIFIC T-WAVE ABNORMALITY POOR R WAVE PROGRESSION Electronically Signed On 05-27-16 12:08:30 EST by Damian Guido MD
--- NOTE | 2016-05-27 13:17 | Internal Med Progress Note ---
Date of Encounter: 05/27/16 Time of Encounter: 09:20 - Assessment and plan (1) Hip fracture, left Current Visit: Yes Status: Acute Assessment and plan: Displaced left hip femoral neck fracture. Orthopedics consulted. Plan to take the patient down for surgery later today. Preop evaluation with 2-D echocardiogram done. Patient has normal ejection fraction. No signs of heart failure. Low risk for cardiac complications related to surgery. Qualifiers: Encounter type: initial encounter Fracture type: closed Qualified Code(s) : S72.002A - Fracture of unspecified part of neck of left femur, initial encounter for closed fracture (2) Acute kidney injury Current Visit: Yes Status: Resolved Assessment and plan: Resolved with IV hydration. (3) Multiple falls Current Visit: Yes Status: Acute Assessment and plan: Will consult physical therapy after surgery. Patient will most likely need placement to skilled rehabilitation (4) Chronic atrial fibrillation Current Visit: Yes Status: Chronic Assessment and plan: Not on anticoagulation due to high fall risk. Patient will need anticoagulation post surgery for DVT prophylaxis. (5) Dementia Current Visit: Yes Status: Chronic Assessment and plan: Chronic. Not on any medications. At risk for delirium. Will monitor closely. Qualifiers: Dementia type: Alzheimer's disease Alzheimer's disease onset: late-onset Dementia behavioral disturbance: with behavioral disturbance Qualified Code(s) : G30.1 - Alzheimer's disease with late onset; F02.81 - Dementia in other diseases classified elsewhere with behavioral disturbance (6) Diabetes Current Visit: Yes Status: Chronic Assessment and plan: Improved blood sugar control. Continue to monitor blood sugars. Continue sliding scale insulin. Qualifiers: Diabetes mellitus type: type 2 Diabetes mellitus complication status: with unspecified complications Diabetes mellitus termite treater insulin use: without termite treater use Qualified Code(s): E11.8 - Type 2 diabetes mellitus with unspecified complications (7) Hypertension Current Visit: Yes Status: Chronic Assessment and plan: Blood pressure is well controlled. Qualifiers: Hypertension type: essential hypertension Qualified Code(s): I10 - Essential (primary) hypertension (8) Hypothyroidism Current Visit: Yes Status: Chronic Assessment and plan: Continue levothyroxine. Qualifiers: Hypothyroidism type: acquired Qualified Code(s): E03.9 - Hypothyroidism, unspecified - Subjective Interval history: She is comfortable and lying in bed. Denies any pain at this time. Patient's daughter is present at bedside and said the patient was complaining of pain earlier when she was being moved around for testing. Her pain seems to be improving while she is at rest and not moving in bed. Denies any pain anywhere else. Nausea or vomiting. - Constitutional Vitals: Temp Pulse Resp BP Pulse Ox 98.2 F 85 16 138/82 94 L 05/27/16 11:00 05/27/16 11:00 05/27/16 11:00 05/27/16 11:00 05/27/16 11:00 General appearance: Present: A&O X 1, disheveled, mild distress, obese - Neck Neck exam general surgery: Present: supple, trachea midline. Absent: lymphadenopathy - Respiratory Respiratory exam: Present: CTAB. Absent: accessory muscle use, rales, rhonchi, wheezes - Cardiovascular Cardiovascular exam: Present: RRR, +S1, +S2. Absent: diastolic murmur, gallop, rubs, systolic murmur - GI/Abdominal GI/Abdominal exam: Present: normal bowel sounds, soft, no peritoneal signs. Absent: distended, tenderness - Extremities Exam Additional comments: Tenderness present in the left lower extremity with decreased range of motion at hip and knee. - Neurological Exam Neurological exam: Present: CN II-XII intact, oriented X3, no focal deficits. Absent: facial droop, speech deficit - Skin Additional comments: Facial wound present at the right nasolabial fold. Chronic without any signs of infection. Internal Medicine: Result - Labs CBC & Chem 7: 05/26/16 22:05 05/27/16 06:48 Labs: BMP 05/27/16 06:48 Sodium 141 Potassium 3.7 Chloride 110 H Carbon Dioxide 21 BUN 33 H Creatinine 1.00 Glucose 176 H Calcium 8.7 Liver Function 05/27/16 Range/Units 06:48 Total Bilirubin 0.4 (0.2-1.2) mg/dL AST 37 H (5-34) Units/L ALT 57 H (0-55) Units/L Alkaline Phosphatase 103 (38-126) Units/L Albumin 2.3 L (3.5-5.0) g/dL Urine 05/27/16 Range/Units 01:40 Urine Color Dark Yellow (Yellow) Urine Clarity Turbid A (Clear) Urine pH 5.5 (5.0-8.0) pH Units Ur Specific [place] 1.023 (1.010-1.025) Urine Protein 30 H (Neg-Trace) mg/dL Urine Glucose (UA) 250 H (Normal) mg/dL - ABG Interpretation ABG results: PT/INR, D-dimer PT 11.7 Seconds (9.4-12.1) 05/27/16 06:48 - VTE Documentation of Mechanical Device: Intermittent pneumatic compression device Consult Discharge Plan - Plan Referrals: Elvin Meza MD [Primary Care Provider] - - Attending Attestation This document has been at least partially created by [employer] recognition technology by Dr. Scott. Errors in grammar, wording or other phrases may exist. If errors are found after the documentation is signed, they will be addressed individually in the addendum section of this document when appropriate. Medical Decision Making - MDM Narrative Medical decision making narrative: Moderate risk for complications - Lab Data Lab results reviewed: Yes I reviewed the patient's lab results. Result diagrams: 05/26/16 22:05 05/27/16 06:48 Lab Results 05/27/16 05/27/16 05/27/16 Range/Units 01:02 01:40 06:48 PT (9.4-12.1) Seconds INR APTT (26.0-36.0) Seconds VBG pH (7.32-7.42) pH Units VBG pCO2 (41-51) mmHg VBG pO2 (25-40) mmHg VBG HCO3 (21-27) mEq/L Sodium (136-145) mEq/L Potassium (3.5-4.5) mEq/L Chloride (98-109) mEq/L Carbon Dioxide (19-29) mEq/L BUN (7-20) mg/dL Creatinine (0.57-1.11) mg/dL Est GFR ( Amer) (> 60) Est GFR (Non-Af Amer) (> 60) BUN/Creatinine Ratio (6-26) Glucose (70-99) mg/dL POC Glucose 330 H (58-89) Est Mean Plasma Glucose 154 mg/dl Hemoglobin A1c 7.0 H ( - 5.6) % Calculated Osmolality (280-300) Calcium (8.6-10.8) mg/dL Ionized Calcium (1.15-1.35) mmol/L Phosphorus (2.3-4.7) mg/dL Magnesium (1.6-2.6) mg/dL Total Bilirubin (0.2-1.2) mg/dL AST (5-34) Units/L ALT (0-55) Units/L Alkaline Phosphatase (38-126) Units/L C-Reactive Protein (Less than 5) mg/L Serum Total Protein (6.0-8.3) g/dL Albumin (3.5-5.0) g/dL Globulin (2.4-3.5) g/dL Albumin/Globulin Ratio (1.1-2.2) Triglycerides (< 150) mg/dL Cholesterol (< 200) mg/dL LDL Cholesterol, Calc (0-99) mg/dL VLDL Cholesterol, Calc (< 31) mg/dL HDL Cholesterol (40-59) mg/dL Cholesterol/HDL Ratio (0-4.9) TSH (0.350-4.840) mcIU/mL Free T4 (0.70-1.48) ng/dl Urine Color Dark Yellow (Yellow) Urine Clarity Turbid A (Clear) Urine pH 5.5 (5.0-8.0) pH Units Ur Specific [place] 1.023 (1.010-1.025) Urine Protein 30 H (Neg-Trace) mg/dL Urine Glucose (UA) 250 H (Normal) mg/dL Urine Ketones Negative (Negative) mg/dL Urine Blood Small H (Negative) Urine Nitrite Negative (Negative) Urine Bilirubin Small H (Negative) Urine Urobilinogen Normal (Normal) mg/dL Ur Leukocyte Esterase Large H (Negative) Urine Microscopic RBC 5-15 H (0-3) per hpf Urine Microscopic WBC TNTC H (0-3) per hpf Ur Squamous Epith Cells Moderate H (None-Few) per lpf Ur Transition Epith Cell Few (None-Few) per hpf Urine Bacteria Moderate H (None-Few) per hpf Urine Mucus Few (Few) 05/27/16 05/27/16 05/27/16 Range/Units 06:48 06:48 06:48 PT 11.7 (9.4-12.1) Seconds INR 1.1 APTT 23.3 L (26.0-36.0) Seconds VBG pH 7.45 H (7.32-7.42) pH Units VBG pCO2 33 L (41-51) mmHg VBG pO2 156 H (25-40) mmHg VBG HCO3 22.9 (21-27) mEq/L Sodium 141 (136-145) mEq/L Potassium 3.7 (3.5-4.5) mEq/L Chloride 110 H (98-109) mEq/L Carbon Dioxide 21 (19-29) mEq/L BUN 33 H (7-20) mg/dL Creatinine 1.00 (0.57-1.11) mg/dL Est GFR ( Amer) > 60 (> 60) Est GFR (Non-Af Amer) 53 L (> 60) BUN/Creatinine Ratio 33 H (6-26) Glucose 176 H (70-99) mg/dL POC Glucose (58-89) Est Mean Plasma Glucose mg/dl Hemoglobin A1c ( - 5.6) % Calculated Osmolality 304 H (280-300) Calcium 8.7 (8.6-10.8) mg/dL Ionized Calcium 1.10 L (1.15-1.35) mmol/L Phosphorus 3.2 (2.3-4.7) mg/dL Magnesium 1.6 (1.6-2.6) mg/dL Total Bilirubin 0.4 (0.2-1.2) mg/dL AST 37 H (5-34) Units/L ALT 57 H (0-55) Units/L Alkaline Phosphatase 103 (38-126) Units/L C-Reactive Protein 143 H (Less than 5) mg/L Serum Total Protein 6.4 (6.0-8.3) g/dL Albumin 2.3 L (3.5-5.0) g/dL Globulin 4.1 H (2.4-3.5) g/dL Albumin/Globulin Ratio 0.6 L (1.1-2.2) Triglycerides 196 H (< 150) mg/dL Cholesterol 172 (< 200) mg/dL LDL Cholesterol, Calc 96 (0-99) mg/dL VLDL Cholesterol, Calc 39 H (< 31) mg/dL HDL Cholesterol 37 L (40-59) mg/dL Cholesterol/HDL Ratio 4.6 (0-4.9) TSH 9.712 H (0.350-4.840) mcIU/mL Free T4 1.02 (0.70-1.48) ng/dl Urine Color (Yellow) Urine Clarity (Clear) Urine pH (5.0-8.0) pH Units Ur Specific [place] (1.010-1.025) Urine Protein (Neg-Trace) mg/dL Urine Glucose (UA) (Normal) mg/dL Urine Ketones (Negative) mg/dL Urine Blood (Negative) Urine Nitrite (Negative) Urine Bilirubin (Negative) Urine Urobilinogen (Normal) mg/dL Ur Leukocyte Esterase (Negative) Urine Microscopic RBC (0-3) per hpf Urine Microscopic WBC (0-3) per hpf Ur Squamous Epith Cells (None-Few) per lpf Ur Transition Epith Cell (None-Few) per hpf Urine Bacteria (None-Few) per hpf Urine Mucus (Few) - Radiology Data Radiology results reviewed: Yes I reviewed the patient's radiology results.
--- NOTE | 2016-05-27 15:14 | Anesthesia Evaluation PreOp ---
Date of Encounter: 05/27/16 Time of Encounter: 15:10 - Past History Planned Operation: Left Efren- Hip Cardiac History: HTN (maintained on Lisinopril), Hyperlipidemia (maintained on Simvastain), Arrhythmia (Chronic AFib - NO anticoagulation re: multiple/ frequent falls. Maintained on Diltiazem), Other (ECHO 05/27/2016 - LVEF 60-65%, Normal LV size & function. 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 Hx Alzheimer's dz/Advanced stage - maintained on Donezepil. Anxiety/Depression maintained on Prozac, Klonopin) Other Medical History: Renal (stage III CRF), Diabetes Type II (HONKH ( HyperOsmolar NonKetotic Hyperglycemia) this admission. DM maintained on Glimepiride.), Thyroid (maintained on Synthroid), Other (Hx of basal cell skin Ca) Anesthesia History: Past Anesthesia Alcohol Use: none Drug use: none Medications and Allergies Donepezil HCl [Donepezil HCl Odt] 10 mg PO HS 02/09/16 [History] Levothyroxine [Synthroid] 100 mcg PO DAILY 02/09/16 [History] Lisinopril [Zestril] 10 mg PO BID 02/09/16 [History] Aspirin 81 mg PO DAILY tab.chew 02/13/16 [Rx] Simvastatin [Zocor] 40 mg PO HS tablet 02/13/16 [Rx] Acetaminophen w/Cod 300-30 mg [Tylenol w/Codeine #3] 1 tab PO Q6H PRN 05/26/16 [ History] Cephalexin [Keflex] 500 mg PO TID 05/26/16 [History] ClonazePAM [Klonopin] 0.5 mg PO QID 05/26/16 [History] Diltiazem HCl [Cartia Xt] 180 mg PO HS 05/26/16 [History] FLUoxetine HCl [PROzac] 20 mg PO DAILY 05/26/16 [History] Glimepiride [Glimepiride] 1 mg PO DAILY 05/26/16 [History] HYDROcodone/Acet 5/325 mg [[place] 5-325 mg] 1 tab PO Q6H PRN 05/26/16 [History] Hydroxyzine HCl 25 mg PO QID 05/26/16 [History] Allergies No Known Allergies Allergy (Verified 05/26/16 20:37) - Meds/Allergy Pre-op Review Medications Reviewed: Yes Allergies Reviewed: Yes Beta Blockers on Current Med List: No Anesthesia Results - Labs 05/26/16 22:05 05/27/16 06:48 Laboratory Tests 05/27/16 05/27/16 05/27/16 01:02 06:48 06:48 PT 11.7 INR 1.1 APTT 23.3 L Est GFR (Non-Af Amer) POC Glucose 330 H Est Mean Plasma Glucose 154 Hemoglobin A1c 7.0 H 05/27/16 06:48 PT INR APTT Est GFR (Non-Af Amer) 53 L POC Glucose Est Mean Plasma Glucose Hemoglobin A1c - Imaging EKG: image reviewed (98bpm SR, borderline LAD) Anesthesia Exam Vital Signs Temp Pulse Resp BP Pulse Ox 05/27/16 11:00 98.2 F 85 16 138/82 94 L 05/27/16 07:45 98.4 F 82 16 139/74 96 05/27/16 05:53 98.1 F 82 15 133/75 92 L 05/27/16 01:19 98.2 F 95 15 141/85 93 L 05/27/16 01:00 94 L 05/26/16 23:51 16 142/70 05/26/16 20:31 97.7 F 107 16 136/76 98 Intake and Output 05/26/16 05/27/16 05/27/16 23:59 07:59 15:59 Intake Total 500 / 500 100 / 100 Balance 500 / 500 100 / 100 Intake: IV Fluids 500 / 500 100 / 100 0.9 % Sodium Chloride 500 500 / 500 ML @ 9999 mls/hr IV BOLUS ONE Rx#:[id number] Rocephin 1,000 MG In 100 / 100 Dextrose 5% (Minibag+) 100 ML 100 ML @ 200 mls/ hr IVPB Q12HR ADRIAN Rx#: [id number] Other: Weight 72.575 kg Blood Glucose* 330 174 Height: 5'5" Weight: 160# BMI = 27 NPO (# of Hours): Mnoc - HEENT Pupil (Motor): Pupils equal, EOMI Mallampati: II Teeth: Edentulous Oral Opening: Greater than 3 - PHYSICIAN CREDENTIALING SPECIALIST LOC: Oriented (Oriented x 1) PHYSICIAN CREDENTIALING SPECIALIST Motor: Normal RUE, Normal RLE, Normal Face, Deficit LUE (L-hemiparesis), Deficit LLE PHYSICIAN CREDENTIALING SPECIALIST Sensory: Normal: RUE, RLE, Face, Deficit: LUE, LLE - Cardiac Rhythm: Regular Murmur: None JVD: No - Pulmonary Breath Sounds: bilateral Clear Respiratory Effort: Symmetrical Anesthesia Assess/Plan ASA Score: 3 (AFib, Dementia, HTN, DM/HONKH,CVA, Chol, Hypothyroidsm) Anesthetic Plan: General Monitoring Plan: Standard Monitors Recovery Plan: PACU Anes Supervising Prov Stmt: Pt seen/evaluated, R&B Discussed w/ CELESTINE Sanchez present at bedside [ [phone] (mobile)], questions answered and consent obtained. Otilio Garcia MD
[2016-05-27] MEDS ORDERED: *HR* Propofol 200 MG/20 ML VIAL IVP ONE (15:23)
[2016-05-27] MEDS ORDERED: *HR* FentaNYL (PF) 100 MCG/2 ML VIAL ONE (15:23)
[2016-05-27] MEDS ORDERED: Lidocaine -MPF 2% 2 ML VIAL ONE (15:25)
[2016-05-27] MEDS ORDERED: Lidocaine -MPF 4% 5 ML AMPUL ONE (15:27)
[2016-05-27] MEDS ORDERED: Vancomycin 1,000 MG VIAL ONE (16:01)
[2016-05-27] MEDS ORDERED: Water for inj. (sterile) 10 ML IV ONE (16:01)
[2016-05-27] MEDS ORDERED: *HR* Rocuronium Bromide 50 MG/5 ML VIAL ONE (16:57)
[2016-05-27] MEDS ORDERED: Acetaminophen IV 1,000 MG/100 ML INFUS..BTL ONE (17:30)
[2016-05-27] MEDS ORDERED: *HR* HYDROmorphone 2 MG/ML SYRINGE ONE (17:36)
[2016-05-27] MEDS ORDERED: Ondansetron 4 MG/2 ML VIAL ONE (17:54)
[2016-05-27] MEDS ORDERED: Dexamethasone 4 MG/ML VIAL ONE (17:54)
[2016-05-27] MEDS ORDERED: *HR* HYDROmorphone (PF) 1 MG/ML SYRINGE IVP PRN (18:55)
[2016-05-27] MEDS ORDERED: *HR* Promethazine 25 MG/ML VIAL IVP PRN (18:55)
[2016-05-27] MEDS ORDERED: *HR* Labetalol 100 MG/20 ML MDV IVP PRN (18:55)
--- NOTE | 2016-05-27 20:02 | Anesthesia Evaluation Post Op ---
Date of Encounter: 05/27/16 Time of Encounter: 20:00 - Vital Signs Vital Signs: Vital Signs/O2 Sat/Glucose, Most Current Temp Pulse Resp BP Pulse Ox 05/27/16 19:53 83 16 106/52 97 05/27/16 19:43 82 14 91/52 96 05/27/16 19:33 82 14 89/51 98 05/27/16 19:23 97.0 F L 81 16 87/47 98 - Lungs Lungs: Clear Ascult./Percussion - Airway Airway: Non-obstructed - Cardiovascular Regular Rate - Mental Status Mental Status: Alert & Oriented, Answers Appropriately - Pain Pain Scale: 0 - Nausea Vomiting Nausea Vomiting: Not Present - Hydration Hydration: NPO - Discharge PostOp Status: Transfer Patient to floor
--- NOTE | 2016-05-27 20:12 | Orthopedic Operative Note ---
Date of procedure: 05/27/16 Procedure: OPERATIVE REPORT DATE OF PROCEDURE: 02/29/2016 SURGEON: Subhash Greer MD SUPERVISOR HAND WORKERS(S): None PREOPERATIVE DIAGNOSIS: Left displaced femoral neck fracture POSTOPERATIVE DIAGNOSIS: Same PROCEDURE: Left hip hemiarthroplasty ANESTHESIA: General anesthesia PREOPERATIVE ANTIBIOTICS: 2 g Ancef ESTIMATED BLOOD LOSS: 100 milliliters TOURNIQUET TIME: N/A SPECIMENS: None IMPLANTS: Mulu Secur-Fit Max Size 8 132 degree hip stem, press fit. Unitrax regular neck sleeve. Unitrax 47 mm head component. LOCAL INJECTION: None COMPLICATIONS: None PREOPERATIVE NOTE AND INDICATIONS: Teresa is an 85-year-old female with a left displaced femoral neck fracture. Treatment options were discussed, and the recommendation was for left hip hemiarthroplasty for pain control and to facilitate nursing care. The surgical plan was discussed with the power of fire safety director. The risks, benefits , alternatives, and potential complications of this procedure were discussed with the patient including injury to veins, arteries, nerves, tendons, ligaments , and bone. Also discussed were the risks of infection, bleeding, pain, blood clots, the possible need for a blood transfusion, the possible need for further procedures, heart attack, stroke, and . Specific risks to this procedure include implant loosening, prosthetic infection, acetabular wear. All of this was explained in simple terms, and the power fire safety director verbalized understanding and wished to proceed. Consent was given to proceed with surgery. PROCEDURE: The patient was seen in the preoperative holding area where the identify and the consent were confirmed. The left hip was marked. Final questions were answered. The patient was brought back to the operating room and placed supine on the operating room table. A huddle was performed with the patient and all vital surgical team members confirming patient identity, the correct procedure, and the correct operative site. General anesthesia was administered. The patient was placed in the right lateral decubitus position. All bony prominences were padded well. An axillary roll was used for the right upper extremity. The left hip was prepped and draped in the usual sterile fashion. A surgical time out was performed immediately preceding the incision with all personnel in the operating room to confirm patient identity, the correct operative site and extremity, correct radiographic studies, availability of appropriate surgical equipment, and agreement on the planned procedure. A curvilinear incision was made centered over the greater trochanter and dissection proceeded through the subcutaneous tissue down to the deep fascial layer. The iliotibial band was split distally and the gluteal fascia was opened and the gluteus nicole split open. The loose areolar tissue around the posterior greater trochanteric region and over the short external rotators was dissected posteriorly. The sciatic nerve was palpable but it was not dissected out. A retractor was placed just superior to the piriformis to reflect the abductors out of the way. The piriformis as well as the short external rotators were taken down and tagged for later repair. The capsule was opened and the femoral neck fracture was identified. A revision cut was made. The femur was retracted out of the way and the femoral head extracted with a corkscrew. It measured 47 mm. Pulvinar and the round ligament were debrided. A box coverer hand was used to open the lateral portion of the femoral neck. The opening reamer was used. Broaching started with a 5 and went up to a 8 which fit nicely. The calcar was planed. The standard neck and 47 mm trial were placed and the hip was articulated. The hip was stable throughout a range of motion. X-ray confirmed good length. The trial components were removed and the hip was copiously irrigated. The definitive size 8 stem was placed and impacted. The definitive 47 mm head was impacted onto the trunion. The hip was re-articulated, and again it felt very stable throughout a range of motion and length felt appropriate. The short external rotators and capsule were repaired with the #2 FiberWire tag stitches through bone tunnels in the greater trochanter. The piriformis was repaired to the posterior gluteal fascia. The wound was again copiously irrigated. A layered closure was performed using #2 Fiberwire and #1 Vicryl stitches for the deep layer followed by 0-Vicryl, 3-0 Vicryl, and soham for the skin. No apparent complications occurred during the procedure. The instrument, sponge , and needle counts were correct after wound closure. POST OPERATIVE PLAN: Weight Bearing: As tolerated DVT Prophylaxis: Aspirin Activity: As tolerated with assist. Wound Care: Keep the dressing clean, dry, and intact. Perioperative antibiotic prophylaxis: 2 doses of postoperative Ancef Social work consult for discharge planning. Anticipate halfway facility. Follow Up: 2 weeks.
[2016-05-27] MEDS: Ringers Solution, Lactated 1,000 ML IVC SCH (21:14)
[2016-05-27] MEDS: Diltiazem CD (24hr) 180 MG CAPSULE PO SCH (21:25)
[2016-05-28] MEDS: ceFAZolin 2,000 MG in D5% in Water 100 ML IVPB SCH ×2 (01:12→08:27)
[2016-05-28] MEDS: Insulin LISPRO 300 UNITS/3 ML VIAL SQ SCH ×4 (01:24→17:18)
[2016-05-28 04:07] LABS: Basophils % 0.2 %; Hematocrit 32.2 % (35.3-44.9); Immature Granulocytes % 0.6 % (0-4); Lymphocytes # 0.3 K/mcL (0.6-4.6); Lymphocytes % 2.3 %; Mean Corpuscular HGB Conc 31.1 g/dL (31.6-35.5); Mean Corpuscular Hemoglobin 27.3 pg (28.0-33.3); Mean Platelet Volume 8.9 fL (9.4-12.4); Monocytes # 0.7 K/mcL (0.0-1.3); Monocytes % 4.5 %; Neutrophils # 13.3 K/mcL (1.6-8.9); Platelet Count 335 K/mcL (140-400); Red Blood Count 3.66 M/mcL (3.82-4.97); Red Cell Distribution Width 15.4 % (11.5-14.5); Segmented Neutrophils % 92.4 %
[2016-05-28 04:20] LABS: Calcium 7.6 mg/dL (8.6-10.8)
[2016-05-28] MEDS: clonazePAM 0.5 MG TABLET PO SCH ×4 (08:27→22:02)
[2016-05-28] MEDS: FLUoxetine 20 MG CAPSULE PO SCH (08:27)
[2016-05-28] MEDS: Aspirin 325 MG TABLET PO SCH ×2 (08:27→22:00)
[2016-05-28] MEDS: Insulin DETEMIR 100 UNIT/ML X5UNITS SQ SCH ×2 (08:28→22:02)
[2016-05-28] MEDS: Acetaminophen 325 MG TABLET PO PRN (08:44)
--- NOTE | 2016-05-28 11:39 | Internal Med Progress Note ---
Date of Encounter: 05/28/16 Time of Encounter: 08:35 - Assessment and plan (1) Hip fracture, left Current Visit: Yes Status: Acute Assessment and plan: Status post left hip hemiarthroplasty. Doing well postprocedure. We will start physical therapy today. Plan to discharge to [facility]CF when cleared by ortho for discharge. Qualifiers: Encounter type: initial encounter Fracture type: closed Qualified Code(s) : S72.002A - Fracture of unspecified part of neck of left femur, initial encounter for closed fracture (2) Acute kidney injury Current Visit: Yes Status: Resolved Assessment and plan: Creatinine 1.12 today. Slightly elevated. We will continue to follow renal function. On lactated Ringer's infusion. Will continue. (3) Multiple falls Current Visit: Yes Status: Acute Assessment and plan: PTOT consulted. Plan for discharge to ECF. (4) Chronic atrial fibrillation Current Visit: Yes Status: Chronic Assessment and plan: Rate controlled. Not on anticoagulation due to high risk for falls. For now on aspirin prophylaxis. Will continue. (5) Dementia Current Visit: Yes Status: Chronic Qualifiers: Dementia type: Alzheimer's disease Alzheimer's disease onset: late-onset Dementia behavioral disturbance: with behavioral disturbance Qualified Code(s) : G30.1 - Alzheimer's disease with late onset; F02.81 - Dementia in other diseases classified elsewhere with behavioral disturbance (6) Diabetes Current Visit: Yes Status: Chronic Assessment and plan: Blood sugars are elevated today. Will increase insulin regimen. Continue to monitor blood sugars and make adjustments as needed. Qualifiers: Diabetes mellitus type: type 2 Diabetes mellitus complication status: with unspecified complications Diabetes mellitus correction insulin use: without correction use Qualified Code(s): E11.8 - Type 2 diabetes mellitus with unspecified complications (7) Hypertension Current Visit: Yes Status: Chronic Assessment and plan: Blood pressure is well controlled. No changes at this time Qualifiers: Hypertension type: essential hypertension Qualified Code(s): I10 - Essential (primary) hypertension (8) Hypothyroidism Current Visit: Yes Status: Chronic Assessment and plan: On levothyroxine 100 g per day. TSH is elevated at 9.7. Will increase levothyroxine dosage to 125 g per day Qualifiers: Hypothyroidism type: acquired Qualified Code(s): E03.9 - Hypothyroidism, unspecified (9) Anemia Current Visit: Yes Status: Acute Assessment and plan: Hemoglobin 10 today. Likely delusional and postsurgical. Will monitor blood counts. Qualifiers: Anemia type: other cause Other causes of anemia: other cause, not classified Qualified Code(s): D64.89 - Other specified anemias - Subjective Interval history: Patient is currently lying in bed. Somnolent but easily awakes. Denies any new complaints at this time. Comfortable as long as she is not moving. Underwent left hip hemiarthroplasty yesterday. No acute postop complications. - Constitutional Vitals: Temp Pulse Resp BP Pulse Ox 98.0 F 84 17 134/80 96 05/28/16 11:04 05/28/16 11:04 05/28/16 11:04 05/28/16 11:04 05/28/16 11:04 General appearance: Present: A&O X 1, disheveled, pleasant, obese Exam: Somnolent but awakes easily - Respiratory Respiratory exam: Present: CTAB. Absent: accessory muscle use, rales, rhonchi, wheezes - Cardiovascular Cardiovascular exam: Present: RRR, +S1, +S2. Absent: diastolic murmur, gallop, rubs, systolic murmur - GI/Abdominal GI/Abdominal exam: Present: normal bowel sounds, soft, no peritoneal signs. Absent: distended, tenderness - Extremities Exam Extremities exam: Present: warm, radial pulses palpable and symetrical. Absent : calf tenderness, cyanotic, pedal edema Additional comments: Decreased range of motion left hip and knee. Left hip currently bandaged. - Neurological Exam Neurological exam: Present: CN II-XII intact, oriented X3, no focal deficits. Absent: facial droop, speech deficit - Skin Skin exam: Present: dry, intact Internal Medicine: Result - Labs CBC & Chem 7: 05/28/16 03:42 05/28/16 03:42 Labs: Short CBC 05/28/16 Range/Units 03:42 WBC 14.4 H (4.3-11.1) K/mcL Hgb 10.0 L D (11.5-15.4) g/dL Hct 32.2 L (35.3-44.9) % Plt Count 335 (140-400) K/mcL Neutrophils # 13.3 H (1.6-8.9) K/mcL BMP 05/28/16 03:42 Sodium 139 Potassium 5.0 H D Chloride 111 H Carbon Dioxide 19 BUN 31 H Creatinine 1.12 H Glucose 315 H Calcium 7.6 L - ABG Interpretation ABG results: PT/INR, D-dimer PT 11.7 Seconds (9.4-12.1) 05/27/16 06:48 - Impressions Impressions Pelvis X-Ray 05/27/16 00:00 IMPRESSION: Limited view of left femoral neck fracture. The alignment appears improved, compared to the preoperative study. D/ / Joshua Strong MD / Joshua Strong MD Interpreting Provider: Joshua Strong MD Pelvis X-Ray 05/27/16 19:37 IMPRESSION: Status post placement left hemiarthroplasty. D/ / Ryan Hdez MD / Ryan Hdez MD Interpreting Provider: Ryan Hdez MD Hip X-Ray 05/27/16 19:38 IMPRESSION: Status post left hip hemiarthroplasty without evidence for immediate postoperative complication. D/ / Cruzito Gonzalez MD / Cruzito Gonzalez MD Interpreting Provider: Cruzito Gonzalez MD - VTE Documentation of Mechanical Device: Intermittent pneumatic compression device Consult Discharge Plan - Plan Referrals: Geovanna Larry MD [Partnered Physician] - 06/02/16 9:30 am Elvin Meza MD [Primary Care Provider] - 08/18/16 11:00 am - Attending Attestation This document has been at least partially created by [employer] recognition technology by Dr. Scott. Errors in grammar, wording or other phrases may exist. If errors are found after the documentation is signed, they will be addressed individually in the addendum section of this document when appropriate. Medical Decision Making - MDM Narrative Medical decision making narrative: Moderate risk for complications - Lab Data Result diagrams: 05/28/16 03:42 05/28/16 03:42 Lab Results 05/27/16 05/27/16 05/27/16 Range/Units 01:02 01:40 05:23 WBC (4.3-11.1) K/mcL RBC (3.82-4.97) M/mcL Hgb (11.5-15.4) g/dL Hct (35.3-44.9) % MCV (83.0-100.0) fL MCH (28.0-33.3) pg MCHC (31.6-35.5) g/dL RDW (11.5-14.5) % Plt Count (140-400) K/mcL MPV (9.4-12.4) fL Immature Gran % (0-4) % Seg Neutrophils % % Lymphocytes % % Monocytes % % Eosinophils % % Basophils % % Neutrophils # (1.6-8.9) K/mcL Lymphocytes # (0.6-4.6) K/mcL Monocytes # (0.0-1.3) K/mcL Eosinophils # (0.0-0.6) K/mcL Basophils # (0.0-0.2) K/mcL PT (9.4-12.1) Seconds INR APTT (26.0-36.0) Seconds VBG pH (7.32-7.42) pH Units VBG pCO2 (41-51) mmHg VBG pO2 (25-40) mmHg VBG HCO3 (21-27) mEq/L Sodium (136-145) mEq/L Potassium (3.5-4.5) mEq/L Chloride (98-109) mEq/L Carbon Dioxide (19-29) mEq/L BUN (7-20) mg/dL Creatinine (0.57-1.11) mg/dL Est GFR ( Amer) (> 60) Est GFR (Non-Af Amer) (> 60) BUN/Creatinine Ratio (6-26) Glucose (70-99) mg/dL POC Glucose 330 H 182 H (58-89) Est Mean Plasma Glucose mg/dl Hemoglobin A1c ( - 5.6) % Calculated Osmolality (280-300) Calcium (8.6-10.8) mg/dL Ionized Calcium (1.15-1.35) mmol/L Phosphorus (2.3-4.7) mg/dL Magnesium (1.6-2.6) mg/dL Total Bilirubin (0.2-1.2) mg/dL AST (5-34) Units/L ALT (0-55) Units/L Alkaline Phosphatase (38-126) Units/L C-Reactive Protein (Less than 5) mg/L Serum Total Protein (6.0-8.3) g/dL Albumin (3.5-5.0) g/dL Globulin (2.4-3.5) g/dL Albumin/Globulin Ratio (1.1-2.2) Triglycerides (< 150) mg/dL Cholesterol (< 200) mg/dL LDL Cholesterol, Calc (0-99) mg/dL VLDL Cholesterol, Calc (< 31) mg/dL HDL Cholesterol (40-59) mg/dL Cholesterol/HDL Ratio (0-4.9) TSH (0.350-4.840) mcIU/mL Free T4 (0.70-1.48) ng/dl Urine Color Dark Yellow (Yellow) Urine Clarity Turbid A (Clear) Urine pH 5.5 (5.0-8.0) pH Units Ur Specific [place] 1.023 (1.010-1.025) Urine Protein 30 H (Neg-Trace) mg/dL Urine Glucose (UA) 250 H (Normal) mg/dL Urine Ketones Negative (Negative) mg/dL Urine Blood Small H (Negative) Urine Nitrite Negative (Negative) Urine Bilirubin Small H (Negative) Urine Urobilinogen Normal (Normal) mg/dL Ur Leukocyte Esterase Large H (Negative) Urine Microscopic RBC 5-15 H (0-3) per hpf Urine Microscopic WBC TNTC H (0-3) per hpf Ur Squamous Epith Cells Moderate H (None-Few) per lpf Ur Transition Epith Cell Few (None-Few) per hpf Urine Bacteria Moderate H (None-Few) per hpf Urine Mucus Few (Few) Blood Type Antibody Screen 05/27/16 05/27/16 05/27/16 Range/Units 06:48 06:48 06:48 WBC (4.3-11.1) K/mcL RBC (3.82-4.97) M/mcL Hgb (11.5-15.4) g/dL Hct (35.3-44.9) % MCV (83.0-100.0) fL MCH (28.0-33.3) pg MCHC (31.6-35.5) g/dL RDW (11.5-14.5) % Plt Count (140-400) K/mcL MPV (9.4-12.4) fL Immature Gran % (0-4) % Seg Neutrophils % % Lymphocytes % % Monocytes % % Eosinophils % % Basophils % % Neutrophils # (1.6-8.9) K/mcL Lymphocytes # (0.6-4.6) K/mcL Monocytes # (0.0-1.3) K/mcL Eosinophils # (0.0-0.6) K/mcL Basophils # (0.0-0.2) K/mcL PT 11.7 (9.4-12.1) Seconds INR 1.1 APTT 23.3 L (26.0-36.0) Seconds VBG pH (7.32-7.42) pH Units VBG pCO2 (41-51) mmHg VBG pO2 (25-40) mmHg VBG HCO3 (21-27) mEq/L Sodium 141 (136-145) mEq/L Potassium 3.7 (3.5-4.5) mEq/L Chloride 110 H (98-109) mEq/L Carbon Dioxide 21 (19-29) mEq/L BUN 33 H (7-20) mg/dL Creatinine 1.00 (0.57-1.11) mg/dL Est GFR ( Amer) > 60 (> 60) Est GFR (Non-Af Amer) 53 L (> 60) BUN/Creatinine Ratio 33 H (6-26) Glucose 176 H (70-99) mg/dL POC Glucose (58-89) Est Mean Plasma Glucose 154 mg/dl Hemoglobin A1c 7.0 H ( - 5.6) % Calculated Osmolality 304 H (280-300) Calcium 8.7 (8.6-10.8) mg/dL Ionized Calcium 1.10 L (1.15-1.35) mmol/L Phosphorus 3.2 (2.3-4.7) mg/dL Magnesium 1.6 (1.6-2.6) mg/dL Total Bilirubin 0.4 (0.2-1.2) mg/dL AST 37 H (5-34) Units/L ALT 57 H (0-55) Units/L Alkaline Phosphatase 103 (38-126) Units/L C-Reactive Protein 143 H (Less than 5) mg/L Serum Total Protein 6.4 (6.0-8.3) g/dL Albumin 2.3 L (3.5-5.0) g/dL Globulin 4.1 H (2.4-3.5) g/dL Albumin/Globulin Ratio 0.6 L (1.1-2.2) Triglycerides 196 H (< 150) mg/dL Cholesterol 172 (< 200) mg/dL LDL Cholesterol, Calc 96 (0-99) mg/dL VLDL Cholesterol, Calc 39 H (< 31) mg/dL HDL Cholesterol 37 L (40-59) mg/dL Cholesterol/HDL Ratio 4.6 (0-4.9) TSH 9.712 H (0.350-4.840) mcIU/mL Free T4 1.02 (0.70-1.48) ng/dl Urine Color (Yellow) Urine Clarity (Clear) Urine pH (5.0-8.0) pH Units Ur Specific [place] (1.010-1.025) Urine Protein (Neg-Trace) mg/dL Urine Glucose (UA) (Normal) mg/dL Urine Ketones (Negative) mg/dL Urine Blood (Negative) Urine Nitrite (Negative) Urine Bilirubin (Negative) Urine Urobilinogen (Normal) mg/dL Ur Leukocyte Esterase (Negative) Urine Microscopic RBC (0-3) per hpf Urine Microscopic WBC (0-3) per hpf Ur Squamous Epith Cells (None-Few) per lpf Ur Transition Epith Cell (None-Few) per hpf Urine Bacteria (None-Few) per hpf Urine Mucus (Few) Blood Type Antibody Screen 05/27/16 05/27/16 05/27/16 Range/Units 06:48 12:07 13:01 WBC (4.3-11.1) K/mcL RBC (3.82-4.97) M/mcL Hgb (11.5-15.4) g/dL Hct (35.3-44.9) % MCV (83.0-100.0) fL MCH (28.0-33.3) pg MCHC (31.6-35.5) g/dL RDW (11.5-14.5) % Plt Count (140-400) K/mcL MPV (9.4-12.4) fL Immature Gran % (0-4) % Seg Neutrophils % % Lymphocytes % % Monocytes % % Eosinophils % % Basophils % % Neutrophils # (1.6-8.9) K/mcL Lymphocytes # (0.6-4.6) K/mcL Monocytes # (0.0-1.3) K/mcL Eosinophils # (0.0-0.6) K/mcL Basophils # (0.0-0.2) K/mcL PT (9.4-12.1) Seconds INR APTT (26.0-36.0) Seconds VBG pH 7.45 H (7.32-7.42) pH Units VBG pCO2 33 L (41-51) mmHg VBG pO2 156 H (25-40) mmHg VBG HCO3 22.9 (21-27) mEq/L Sodium (136-145) mEq/L Potassium (3.5-4.5) mEq/L Chloride (98-109) mEq/L Carbon Dioxide (19-29) mEq/L BUN (7-20) mg/dL Creatinine (0.57-1.11) mg/dL Est GFR ( Amer) (> 60) Est GFR (Non-Af Amer) (> 60) BUN/Creatinine Ratio (6-26) Glucose (70-99) mg/dL POC Glucose 174 H (58-89) Est Mean Plasma Glucose mg/dl Hemoglobin A1c ( - 5.6) % Calculated Osmolality (280-300) Calcium (8.6-10.8) mg/dL Ionized Calcium (1.15-1.35) mmol/L Phosphorus (2.3-4.7) mg/dL Magnesium (1.6-2.6) mg/dL Total Bilirubin (0.2-1.2) mg/dL AST (5-34) Units/L ALT (0-55) Units/L Alkaline Phosphatase (38-126) Units/L C-Reactive Protein (Less than 5) mg/L Serum Total Protein (6.0-8.3) g/dL Albumin (3.5-5.0) g/dL Globulin (2.4-3.5) g/dL Albumin/Globulin Ratio (1.1-2.2) Triglycerides (< 150) mg/dL Cholesterol (< 200) mg/dL LDL Cholesterol, Calc (0-99) mg/dL VLDL Cholesterol, Calc (< 31) mg/dL HDL Cholesterol (40-59) mg/dL Cholesterol/HDL Ratio (0-4.9) TSH (0.350-4.840) mcIU/mL Free T4 (0.70-1.48) ng/dl Urine Color (Yellow) Urine Clarity (Clear) Urine pH (5.0-8.0) pH Units Ur Specific [place] (1.010-1.025) Urine Protein (Neg-Trace) mg/dL Urine Glucose (UA) (Normal) mg/dL Urine Ketones (Negative) mg/dL Urine Blood (Negative) Urine Nitrite (Negative) Urine Bilirubin (Negative) Urine Urobilinogen (Normal) mg/dL Ur Leukocyte Esterase (Negative) Urine Microscopic RBC (0-3) per hpf Urine Microscopic WBC (0-3) per hpf Ur Squamous Epith Cells (None-Few) per lpf Ur Transition Epith Cell (None-Few) per hpf Urine Bacteria (None-Few) per hpf Urine Mucus (Few) Blood Type A POSITIVE Antibody Screen NEGATIVE 05/27/16 05/27/16 05/28/16 Range/Units 19:29 21:46 01:14 WBC (4.3-11.1) K/mcL RBC (3.82-4.97) M/mcL Hgb (11.5-15.4) g/dL Hct (35.3-44.9) % MCV (83.0-100.0) fL MCH (28.0-33.3) pg MCHC (31.6-35.5) g/dL RDW (11.5-14.5) % Plt Count (140-400) K/mcL MPV (9.4-12.4) fL Immature Gran % (0-4) % Seg Neutrophils % % Lymphocytes % % Monocytes % % Eosinophils % % Basophils % % Neutrophils # (1.6-8.9) K/mcL Lymphocytes # (0.6-4.6) K/mcL Monocytes # (0.0-1.3) K/mcL Eosinophils # (0.0-0.6) K/mcL Basophils # (0.0-0.2) K/mcL PT (9.4-12.1) Seconds INR APTT (26.0-36.0) Seconds VBG pH (7.32-7.42) pH Units VBG pCO2 (41-51) mmHg VBG pO2 (25-40) mmHg VBG HCO3 (21-27) mEq/L Sodium (136-145) mEq/L Potassium (3.5-4.5) mEq/L Chloride (98-109) mEq/L Carbon Dioxide (19-29) mEq/L BUN (7-20) mg/dL Creatinine (0.57-1.11) mg/dL Est GFR ( Amer) (> 60) Est GFR (Non-Af Amer) (> 60) BUN/Creatinine Ratio (6-26) Glucose (70-99) mg/dL POC Glucose 193 H 263 H 311 H (58-89) Est Mean Plasma Glucose mg/dl Hemoglobin A1c ( - 5.6) % Calculated Osmolality (280-300) Calcium (8.6-10.8) mg/dL Ionized Calcium (1.15-1.35) mmol/L Phosphorus (2.3-4.7) mg/dL Magnesium (1.6-2.6) mg/dL Total Bilirubin (0.2-1.2) mg/dL AST (5-34) Units/L ALT (0-55) Units/L Alkaline Phosphatase (38-126) Units/L C-Reactive Protein (Less than 5) mg/L Serum Total Protein (6.0-8.3) g/dL Albumin (3.5-5.0) g/dL Globulin (2.4-3.5) g/dL Albumin/Globulin Ratio (1.1-2.2) Triglycerides (< 150) mg/dL Cholesterol (< 200) mg/dL LDL Cholesterol, Calc (0-99) mg/dL VLDL Cholesterol, Calc (< 31) mg/dL HDL Cholesterol (40-59) mg/dL Cholesterol/HDL Ratio (0-4.9) TSH (0.350-4.840) mcIU/mL Free T4 (0.70-1.48) ng/dl Urine Color (Yellow) Urine Clarity (Clear) Urine pH (5.0-8.0) pH Units Ur Specific [place] (1.010-1.025) Urine Protein (Neg-Trace) mg/dL Urine Glucose (UA) (Normal) mg/dL Urine Ketones (Negative) mg/dL Urine Blood (Negative) Urine Nitrite (Negative) Urine Bilirubin (Negative) Urine Urobilinogen (Normal) mg/dL Ur Leukocyte Esterase (Negative) Urine Microscopic RBC (0-3) per hpf Urine Microscopic WBC (0-3) per hpf Ur Squamous Epith Cells (None-Few) per lpf Ur Transition Epith Cell (None-Few) per hpf Urine Bacteria (None-Few) per hpf Urine Mucus (Few) Blood Type Antibody Screen 05/28/16 05/28/16 05/28/16 Range/Units 01:16 03:42 03:42 WBC 14.4 H (4.3-11.1) K/mcL RBC 3.66 L (3.82-4.97) M/mcL Hgb 10.0 L D (11.5-15.4) g/dL Hct 32.2 L (35.3-44.9) % MCV 88.0 (83.0-100.0) fL MCH 27.3 L (28.0-33.3) pg MCHC 31.1 L (31.6-35.5) g/dL RDW 15.4 H (11.5-14.5) % Plt Count 335 (140-400) K/mcL MPV 8.9 L (9.4-12.4) fL Immature Gran % 0.6 (0-4) % Seg Neutrophils % 92.4 % Lymphocytes % 2.3 % Monocytes % 4.5 % Eosinophils % 0.0 % Basophils % 0.2 % Neutrophils # 13.3 H (1.6-8.9) K/mcL Lymphocytes # 0.3 L (0.6-4.6) K/mcL Monocytes # 0.7 (0.0-1.3) K/mcL Eosinophils # 0.0 (0.0-0.6) K/mcL Basophils # 0.0 (0.0-0.2) K/mcL PT (9.4-12.1) Seconds INR APTT (26.0-36.0) Seconds VBG pH (7.32-7.42) pH Units VBG pCO2 (41-51) mmHg VBG pO2 (25-40) mmHg VBG HCO3 (21-27) mEq/L Sodium 139 (136-145) mEq/L Potassium 5.0 H D (3.5-4.5) mEq/L Chloride 111 H (98-109) mEq/L Carbon Dioxide 19 (19-29) mEq/L BUN 31 H (7-20) mg/dL Creatinine 1.12 H (0.57-1.11) mg/dL Est GFR ( Amer) 56 L (> 60) Est GFR (Non-Af Amer) 46 L (> 60) BUN/Creatinine Ratio 28 H (6-26) Glucose 315 H (70-99) mg/dL POC Glucose 305 H (58-89) Est Mean Plasma Glucose mg/dl Hemoglobin A1c ( - 5.6) % Calculated Osmolality 307 H (280-300) Calcium 7.6 L (8.6-10.8) mg/dL Ionized Calcium (1.15-1.35) mmol/L Phosphorus (2.3-4.7) mg/dL Magnesium (1.6-2.6) mg/dL Total Bilirubin (0.2-1.2) mg/dL AST (5-34) Units/L ALT (0-55) Units/L Alkaline Phosphatase (38-126) Units/L C-Reactive Protein (Less than 5) mg/L Serum Total Protein (6.0-8.3) g/dL Albumin (3.5-5.0) g/dL Globulin (2.4-3.5) g/dL Albumin/Globulin Ratio (1.1-2.2) Triglycerides (< 150) mg/dL Cholesterol (< 200) mg/dL LDL Cholesterol, Calc (0-99) mg/dL VLDL Cholesterol, Calc (< 31) mg/dL HDL Cholesterol (40-59) mg/dL Cholesterol/HDL Ratio (0-4.9) TSH (0.350-4.840) mcIU/mL Free T4 (0.70-1.48) ng/dl Urine Color (Yellow) Urine Clarity (Clear) Urine pH (5.0-8.0) pH Units Ur Specific [place] (1.010-1.025) Urine Protein (Neg-Trace) mg/dL Urine Glucose (UA) (Normal) mg/dL Urine Ketones (Negative) mg/dL Urine Blood (Negative) Urine Nitrite (Negative) Urine Bilirubin (Negative) Urine Urobilinogen (Normal) mg/dL Ur Leukocyte Esterase (Negative) Urine Microscopic RBC (0-3) per hpf Urine Microscopic WBC (0-3) per hpf Ur Squamous Epith Cells (None-Few) per lpf Ur Transition Epith Cell (None-Few) per hpf Urine Bacteria (None-Few) per hpf Urine Mucus (Few) Blood Type Antibody Screen 05/28/16 Range/Units 05:42 WBC (4.3-11.1) K/mcL RBC (3.82-4.97) M/mcL Hgb (11.5-15.4) g/dL Hct (35.3-44.9) % MCV (83.0-100.0) fL MCH (28.0-33.3) pg MCHC (31.6-35.5) g/dL RDW (11.5-14.5) % Plt Count (140-400) K/mcL MPV (9.4-12.4) fL Immature Gran % (0-4) % Seg Neutrophils % % Lymphocytes % % Monocytes % % Eosinophils % % Basophils % % Neutrophils # (1.6-8.9) K/mcL Lymphocytes # (0.6-4.6) K/mcL Monocytes # (0.0-1.3) K/mcL Eosinophils # (0.0-0.6) K/mcL Basophils # (0.0-0.2) K/mcL PT (9.4-12.1) Seconds INR APTT (26.0-36.0) Seconds VBG pH (7.32-7.42) pH Units VBG pCO2 (41-51) mmHg VBG pO2 (25-40) mmHg VBG HCO3 (21-27) mEq/L Sodium (136-145) mEq/L Potassium (3.5-4.5) mEq/L Chloride (98-109) mEq/L Carbon Dioxide (19-29) mEq/L BUN (7-20) mg/dL Creatinine (0.57-1.11) mg/dL Est GFR ( Amer) (> 60) Est GFR (Non-Af Amer) (> 60) BUN/Creatinine Ratio (6-26) Glucose (70-99) mg/dL POC Glucose 256 H (58-89) Est Mean Plasma Glucose mg/dl Hemoglobin A1c ( - 5.6) % Calculated Osmolality (280-300) Calcium (8.6-10.8) mg/dL Ionized Calcium (1.15-1.35) mmol/L Phosphorus (2.3-4.7) mg/dL Magnesium (1.6-2.6) mg/dL Total Bilirubin (0.2-1.2) mg/dL AST (5-34) Units/L ALT (0-55) Units/L Alkaline Phosphatase (38-126) Units/L C-Reactive Protein (Less than 5) mg/L Serum Total Protein (6.0-8.3) g/dL Albumin (3.5-5.0) g/dL Globulin (2.4-3.5) g/dL Albumin/Globulin Ratio (1.1-2.2) Triglycerides (< 150) mg/dL Cholesterol (< 200) mg/dL LDL Cholesterol, Calc (0-99) mg/dL VLDL Cholesterol, Calc (< 31) mg/dL HDL Cholesterol (40-59) mg/dL Cholesterol/HDL Ratio (0-4.9) TSH (0.350-4.840) mcIU/mL Free T4 (0.70-1.48) ng/dl Urine Color (Yellow) Urine Clarity (Clear) Urine pH (5.0-8.0) pH Units Ur Specific [place] (1.010-1.025) Urine Protein (Neg-Trace) mg/dL Urine Glucose (UA) (Normal) mg/dL Urine Ketones (Negative) mg/dL Urine Blood (Negative) Urine Nitrite (Negative) Urine Bilirubin (Negative) Urine Urobilinogen (Normal) mg/dL Ur Leukocyte Esterase (Negative) Urine Microscopic RBC (0-3) per hpf Urine Microscopic WBC (0-3) per hpf Ur Squamous Epith Cells (None-Few) per lpf Ur Transition Epith Cell (None-Few) per hpf Urine Bacteria (None-Few) per hpf Urine Mucus (Few) Blood Type Antibody Screen
[2016-05-28] MEDS: Ringers Solution, Lactated 1,000 ML IVC SCH (12:01)
--- NOTE | 2016-05-28 13:32 | Orthopedics Progress Note ---
<Princess Marie - Last Filed: 05/28/16 13:29> Date of Encounter: 05/28/16 Time of Encounter: 13:29 - Assessment and Plan (1) Hip fracture, left Current Visit: Yes Status: Acute POD#1 - Left Hip Hemiarthroplasty 05/27/16 - . Patient is doing well, comfortable in bed. Pain controlled. Continue with PT daily, and OT. WBAT with hip precautions. Continue with ABD brace while supine. Continue with pain control and DVT prophlaxis. Currently waiting on authorization for ECF. Qualifiers: Encounter type: initial encounter Fracture type: closed Qualified Code(s) : S72.002A - Fracture of unspecified part of neck of left femur, initial encounter for closed fracture (2) DVT prophylaxis Current Visit: No Status: Acute (3) Leukocytosis Current Visit: Yes Status: Acute Stable at 14 - hospitalist is following Qualifiers: Leukocytosis type: other Qualified Code(s): D72.828 - Other elevated white blood cell count (4) Anemia Current Visit: Yes Status: Acute H/H slight drop, hospitalist monitoring. Qualifiers: Anemia type: other cause Other causes of anemia: other cause, not classified Qualified Code(s): D64.89 - Other specified anemias (5) Acute kidney injury Current Visit: Yes Status: Resolved Worsening of renal function today, hospitalist is following. UA +Bacteria, awaiting C&S. Continues on IV antibiotic q 8 hours - Hospitalist is following. Subjective Principal diagnosis: Left Hip Hemiarthoplasty 05/27/16 - Interval history: POD#1 - Left Hip Hemiarthoplasty 05/27/16 - . Patient is resting comfortably in bed, pain controlled with pain medication. Afebrile, vitals stable. LLE: Dressing c/d/i, no ecchymosis or erythema noted. No drainage. Skin is warm, dry. Minimal tenderness with palpation to Left hip and thigh. No calf tenderness. ROM limited, but patient has transferred to standing position with nursing staff and PT. NV intact distally. Objective Vital signs: Vital Signs Temp Pulse Resp BP Pulse Ox 05/28/16 11:04 98.0 F 84 17 134/80 96 05/28/16 07:15 97.4 F L 81 17 119/74 96 01/05/17 05:23 97.5 F L 80 15 143/81 95 05/27/16 23:45 97.6 F 85 16 115/75 94 L 05/27/16 22:48 97.7 F 88 16 122/92 05/27/16 21:50 97.7 F 89 16 126/97 05/27/16 21:20 97.7 F 89 16 116/73 95 05/27/16 20:50 98.0 F 89 14 103/67 94 L 05/27/16 20:22 97.0 F L 86 18 107/56 92 L 05/27/16 20:13 87 16 102/57 93 L 05/27/16 20:03 92 14 107/58 98 05/27/16 19:53 97.4 F L 83 16 106/52 97 05/27/16 19:43 82 14 91/52 96 05/27/16 19:33 82 14 89/51 98 05/27/16 19:23 97.0 F L 81 16 87/47 98 Intake and Output 05/27/16 05/28/16 05/28/16 23:59 07:59 15:59 Intake Total 100 / 100 100 / 100 1200 / 1200 Output Total 300 / 300 250 / 250 Balance -200 / -200 -150 / -150 1200 / 1200 Intake: IV Fluids 100 / 100 100 / 100 900 / 900 Lactated Ringers 1,000 ML 900 / 900 @ 75 mls/hr IVC .[id number] [facility] Rx#:[id number] Ancef 2,000 MG In 100 / 100 Dextrose 5% 100 ML @ 200 mls/hr IVPB Q8HR [facility] Rx#: [id number] Rocephin 1,000 MG In 100 / 100 Dextrose 5% (Minibag+) 100 ML 100 ML @ 200 mls/ hr IVPB Q12HR [facility] Rx#: [id number] Oral 300 / 300 Output: Estimated Blood Loss 100 / 100 Urine Amount (Catheter) 200 / 200 Catheter 250 / 250 Other: Meal Lunch Percent of Meal Consumed 20% # Voids 1 Blood Glucose* 263 256 277 Incision: clean and dry - Labs CBC & BMP: 05/28/16 03:42 05/28/16 03:42 Labs: Abnormal lab results WBC 14.4 K/mcL (4.3-11.1) H 05/28/16 03:42 RBC 3.66 M/mcL (3.82-4.97) L 05/28/16 03:42 Hgb 10.0 g/dL (11.5-15.4) L D 05/28/16 03:42 Hct 32.2 % (35.3-44.9) L 05/28/16 03:42 MCH 27.3 pg (28.0-33.3) L 05/28/16 03:42 MCHC 31.1 g/dL (31.6-35.5) L 05/28/16 03:42 RDW 15.4 % (11.5-14.5) H 05/28/16 03:42 MPV 8.9 fL (9.4-12.4) L 05/28/16 03:42 Neutrophils # 13.3 K/mcL (1.6-8.9) H 05/28/16 03:42 Lymphocytes # 0.3 K/mcL (0.6-4.6) L 05/28/16 03:42 APTT 23.3 Seconds (26.0-36.0) L 05/27/16 06:48 VBG pH 7.45 pH Units (7.32-7.42) H 05/27/16 06:48 VBG pCO2 33 mmHg (41-51) L 05/27/16 06:48 VBG pO2 156 mmHg (25-40) H 05/27/16 06:48 Potassium 5.0 mEq/L (3.5-4.5) H D 05/28/16 03:42 Chloride 111 mEq/L (98-109) H 05/28/16 03:42 BUN 31 mg/dL (7-20) H 05/28/16 03:42 Creatinine 1.12 mg/dL (0.57-1.11) H 05/28/16 03:42 Est GFR ( Amer) 56 (> 60) L 05/28/16 03:42 Est GFR (Non-Af Amer) 46 (> 60) L 05/28/16 03:42 BUN/Creatinine Ratio 28 (6-26) H 05/28/16 03:42 Glucose 315 mg/dL (70-99) H 05/28/16 03:42 POC Glucose 256 (58-89) H 05/28/16 05:42 Hemoglobin A1c 7.0 % (-5.6) H 05/27/16 06:48 Calculated Osmolality 307 (280-300) H 05/28/16 03:42 Calcium 7.6 mg/dL (8.6-10.8) L 05/28/16 03:42 Ionized Calcium 1.10 mmol/L (1.15-1.35) L 05/27/16 06:48 AST 37 Units/L (5-34) H 05/27/16 06:48 ALT 57 Units/L (0-55) H 05/27/16 06:48 C-Reactive Protein 143 mg/L (Less than 5) H 05/27/16 06:48 Albumin 2.3 g/dL (3.5-5.0) L 05/27/16 06:48 Globulin 4.1 g/dL (2.4-3.5) H 05/27/16 06:48 Albumin/Globulin Ratio 0.6 (1.1-2.2) L 05/27/16 06:48 Triglycerides 196 mg/dL (< 150) H 05/27/16 06:48 VLDL Cholesterol, Calc 39 mg/dL (< 31) H 05/27/16 06:48 HDL Cholesterol 37 mg/dL (40-59) L 05/27/16 06:48 TSH 9.712 mcIU/mL (0.350-4.840) H 05/27/16 06:48 Urine Clarity Turbid (Clear) A 05/27/16 01:40 Urine Protein 30 mg/dL (Neg-Trace) H 05/27/16 01:40 Urine Glucose (UA) 250 mg/dL (Normal) H 05/27/16 01:40 Urine Blood Small (Negative) H 05/27/16 01:40 Urine Bilirubin Small (Negative) H 05/27/16 01:40 Ur Leukocyte Esterase Large (Negative) H 05/27/16 01:40 Urine Microscopic RBC 5-15 per hpf (0-3) H 05/27/16 01:40 Urine Microscopic WBC TNTC per hpf (0-3) H 05/27/16 01:40 Ur Squamous Epith Cells Moderate per lpf (None-Few) H 05/27/16 01:40 Urine Bacteria Moderate per hpf (None-Few) H 05/27/16 01:40 NOTED> - VTE Documentation of Mechanical Device: Intermittent pneumatic compression device Consult Discharge Plan - Plan Additional Instructions: DISCHARGE INSTRUCTIONS Dr. Greer Left Hip Hemiarthroplasty Wound Care -Keep wound / incision area clean and dry. -Change dressing daily with dry gauze and paper tape or medipore tape. -No baths or swimming until otherwise instructed. -After 14 days from surgery date, may begin to shower only if no drainage is present. No submerging the wound under standing water until cleared by your physician (no baths, hot tubs, swimming pools, etc). Sponge baths are the best way to perform personal hygiene while at the same time protecting the wound from moisture. -No scrubbing the wound. You may "pad dry" the wound, but do not rub, as this may open up he wound and pre-dispose to wound infection. -Do not apply lotions or creams to incision site, unless instructed otherwise. -Observe for redness, swelling, or drainage. Please call the clinic immediately if you have fevers, chills with warmth/redness surrounding wound site or if you notice pus drainage from the wound site. Activity -Consult physical therapy; Eval and treat post left hip hemiarthroplasty. -No heavy lifting objects greater than 10 pounds. -You may be weight-bear as tolerated on both of your lower extremities. -Posterior hip precautions for 6 weeks: No bending the hip past 90 degrees. Do not allow the leg to cross the midline of your body (adduction). No twisting motions. Ask your physical therapist to review these precautions with you. Reducing the Risk of Blood Clots -Aspirin 325 mg by mouth twice per day. -Wear knee high compression hose 23 hours per day. Discharge Pain Medications -You will be given a prescription for pain medication. Wean off as tolerated. Do not wait to take the pain medication until the pain is severe, as it will be difficult to "catch up" once this occurs. The pain medication usually reaches its full effect ~1 hour after ingesting. -Your prescribed pain medication may contain Tylenol. You must be careful not to exceed 4,000 mg (4 g) of Tylenol (or generic equivalent), from all sources, within a single 24-hour period. -Some common side effects of the narcotic pain medications (Percocet, Oxycodone , Vicodin, etc) include nausea and itching. Benadryl is a great over the counter medication that helps calm your stomach, decreases your anxiety levels, and minimizes the itching. You can easily purchase this at your local pharmacy as an gebw-poe-twzrtse medication. Please abide by the instructions as printed on t-he bottle. If your nausea persists, make sure to take small amounts of crackers or other test clerk foods. Follow-Up -Follow-up with Dr. Greer office in 2 weeks from the surgery date for a post- operative evaluation. -Call the office at [phone] to schedule or confirm your appointment. Referrals: Geovanna Larry MD [Partnered Physician] - 06/02/16 9:30 am Elvin Meza MD [Primary Care Provider] - 08/18/16 11:00 am <Subhash Greer E - Last Filed: 05/29/16 09:44> - Assessment and Plan (1) Hip fracture, left Current Visit: Yes Status: Acute Qualifiers: Encounter type: initial encounter Fracture type: closed Qualified Code(s) : S72.002A - Fracture of unspecified part of neck of left femur, initial encounter for closed fracture Objective Vital signs: Vital Signs Temp Pulse Resp BP Pulse Ox 05/29/16 07:00 98.3 F 87 16 127/62 96 05/29/16 05:21 98.0 F 85 17 135/66 95 05/29/16 01:49 97.4 F L 92 18 160/81 97 05/29/16 01:31 95 05/28/16 21:01 99.0 F 99 18 155/71 96 05/28/16 15:37 98.3 F 87 18 131/73 97 05/28/16 11:04 98.0 F 84 17 134/80 96 Intake and Output 05/28/16 05/29/16 05/29/16 23:59 07:59 15:59 Intake Total 340 / 340 1300 / 1300 Balance 340 / 340 1300 / 1300 Intake: IV Fluids 100 / 100 1100 / 1100 Lactated Ringers 1,000 ML 1000 / 1000 @ 75 mls/hr IVC .[id number] COUNTS INCLUDE 234 BEDS AT THE [facility] Rx#:[id number] Rocephin 1,000 MG In 100 / 100 100 / 100 Dextrose 5% (Minibag+) 100 ML 100 ML @ 200 mls/ hr IVPB Q12HR COUNTS INCLUDE 234 BEDS AT THE [facility] Rx#: [id number] Oral 240 / 240 200 / 200 Other: Stool Size Large Stool Consistency soft Stool Color Brown # Urine Diapers 1 Blood Glucose* 165 - Labs CBC & BMP: 05/29/16 04:17 05/28/16 03:42 Labs: Abnormal lab results WBC 14.4 K/mcL (4.3-11.1) H 05/28/16 03:42 RBC 3.66 M/mcL (3.82-4.97) L 05/28/16 03:42 Hgb 9.3 g/dL (11.5-15.4) L 05/29/16 04:17 Hct 29.2 % (35.3-44.9) L 05/29/16 04:17 MCH 27.3 pg (28.0-33.3) L 05/28/16 03:42 MCHC 31.1 g/dL (31.6-35.5) L 05/28/16 03:42 RDW 15.4 % (11.5-14.5) H 05/28/16 03:42 MPV 8.9 fL (9.4-12.4) L 05/28/16 03:42 Neutrophils # 13.3 K/mcL (1.6-8.9) H 05/28/16 03:42 Lymphocytes # 0.3 K/mcL (0.6-4.6) L 05/28/16 03:42 APTT 23.3 Seconds (26.0-36.0) L 05/27/16 06:48 VBG pH 7.45 pH Units (7.32-7.42) H 05/27/16 06:48 VBG pCO2 33 mmHg (41-51) L 05/27/16 06:48 VBG pO2 156 mmHg (25-40) H 05/27/16 06:48 Potassium 5.0 mEq/L (3.5-4.5) H D 05/28/16 03:42 Chloride 111 mEq/L (98-109) H 05/28/16 03:42 BUN 31 mg/dL (7-20) H 05/28/16 03:42 Creatinine 1.12 mg/dL (0.57-1.11) H 05/28/16 03:42 Est GFR ( Amer) 56 (> 60) L 05/28/16 03:42 Est GFR (Non-Af Amer) 46 (> 60) L 05/28/16 03:42 BUN/Creatinine Ratio 28 (6-26) H 05/28/16 03:42 Glucose 315 mg/dL (70-99) H 05/28/16 03:42 POC Glucose 183 (58-89) H 05/29/16 01:19 Hemoglobin A1c 7.0 % (-5.6) H 05/27/16 06:48 Calculated Osmolality 307 (280-300) H 05/28/16 03:42 Calcium 7.6 mg/dL (8.6-10.8) L 05/28/16 03:42 Ionized Calcium 1.10 mmol/L (1.15-1.35) L 05/27/16 06:48 AST 37 Units/L (5-34) H 05/27/16 06:48 ALT 57 Units/L (0-55) H 05/27/16 06:48 C-Reactive Protein 143 mg/L (Less than 5) H 05/27/16 06:48 Albumin 2.3 g/dL (3.5-5.0) L 05/27/16 06:48 Globulin 4.1 g/dL (2.4-3.5) H 05/27/16 06:48 Albumin/Globulin Ratio 0.6 (1.1-2.2) L 05/27/16 06:48 Triglycerides 196 mg/dL (< 150) H 05/27/16 06:48 VLDL Cholesterol, Calc 39 mg/dL (< 31) H 05/27/16 06:48 HDL Cholesterol 37 mg/dL (40-59) L 05/27/16 06:48 TSH 9.712 mcIU/mL (0.350-4.840) H 05/27/16 06:48 Urine Clarity Turbid (Clear) A 05/27/16 01:40 Urine Protein 30 mg/dL (Neg-Trace) H 05/27/16 01:40 Urine Glucose (UA) 250 mg/dL (Normal) H 05/27/16 01:40 Urine Blood Small (Negative) H 05/27/16 01:40 Urine Bilirubin Small (Negative) H 05/27/16 01:40 Ur Leukocyte Esterase Large (Negative) H 05/27/16 01:40 Urine Microscopic RBC 5-15 per hpf (0-3) H 05/27/16 01:40 Urine Microscopic WBC TNTC per hpf (0-3) H 05/27/16 01:40 Ur Squamous Epith Cells Moderate per lpf (None-Few) H 05/27/16 01:40 Urine Bacteria Moderate per hpf (None-Few) H 05/27/16 01:40
[2016-05-28] MEDS: Diltiazem CD (24hr) 180 MG CAPSULE PO SCH (22:00)
[2016-05-29 04:29] LABS: Hematocrit 29.2 % (35.3-44.9); Hemoglobin 9.3 g/dL (11.5-15.4)
[2016-05-29] MEDS: Ringers Solution, Lactated 1,000 ML IVC SCH (07:54)
[2016-05-29] MEDS: FLUoxetine 20 MG CAPSULE PO SCH (07:55)
[2016-05-29] MEDS: clonazePAM 0.5 MG TABLET PO SCH ×4 (07:55→23:46)
[2016-05-29] MEDS: Insulin LISPRO 300 UNITS/3 ML VIAL SQ SCH ×3 (07:56→17:21)
[2016-05-29] MEDS: Aspirin 325 MG TABLET PO SCH ×2 (07:56→23:46)
--- NOTE | 2016-05-29 09:43 | Orthopedics Progress Note ---
Date of Encounter: 05/29/16 Time of Encounter: 07:00 - Assessment and Plan (1) Hip fracture, left Current Visit: Yes Status: Acute Qualifiers: Encounter type: initial encounter Fracture type: closed Qualified Code(s) : S72.002A - Fracture of unspecified part of neck of left femur, initial encounter for closed fracture Subjective Principal diagnosis: Left Hip Hemiarthoplasty 05/27/16 - Interval history: Subjective: Doing well this morning. No complaints. Pain is controlled. Objective: -Afebrile, vitals stable -Left thigh dressing changed. -Wound is clean and dry. -No pain with passive hip motion. -She actively flexes and extends the toes and ankle on command. -The foot is warm and well perfused. Assessmane and Plan: Post left hip hemiarthroplasty -Therapy, WBAT, hip precautions. -ASA 325 PO BID for DVT prophylaxis. -Knee high MARY hose. -Pain controlled. No changes needed. -Orthopedically stable for discharge when placement made. -Follow up with me in the office two weeks from date of surgery. Objective Vital signs: Vital Signs Temp Pulse Resp BP Pulse Ox 05/29/16 07:00 98.3 F 87 16 127/62 96 05/29/16 05:21 98.0 F 85 17 135/66 95 05/29/16 01:49 97.4 F L 92 18 160/81 97 05/29/16 01:31 95 05/28/16 21:01 99.0 F 99 18 155/71 96 05/28/16 15:37 98.3 F 87 18 131/73 97 05/28/16 11:04 98.0 F 84 17 134/80 96 Intake and Output 05/28/16 05/29/16 05/29/16 23:59 07:59 15:59 Intake Total 340 / 340 1300 / 1300 Balance 340 / 340 1300 / 1300 Intake: IV Fluids 100 / 100 1100 / 1100 Lactated Ringers 1,000 ML 1000 / 1000 @ 75 mls/hr IVC .[id number] [facility] Rx#:[id number] Rocephin 1,000 MG In 100 / 100 100 / 100 Dextrose 5% (Minibag+) 100 ML 100 ML @ 200 mls/ hr IVPB Q12HR [facility] Rx#: [id number] Oral 240 / 240 200 / 200 Other: Stool Size Large Stool Consistency soft Stool Color Brown # Urine Diapers 1 Blood Glucose* 165 - Labs CBC & BMP: 05/29/16 04:17 05/28/16 03:42 Labs: Abnormal lab results WBC 14.4 K/mcL (4.3-11.1) H 05/28/16 03:42 RBC 3.66 M/mcL (3.82-4.97) L 05/28/16 03:42 Hgb 9.3 g/dL (11.5-15.4) L 05/29/16 04:17 Hct 29.2 % (35.3-44.9) L 05/29/16 04:17 MCH 27.3 pg (28.0-33.3) L 05/28/16 03:42 MCHC 31.1 g/dL (31.6-35.5) L 05/28/16 03:42 RDW 15.4 % (11.5-14.5) H 05/28/16 03:42 MPV 8.9 fL (9.4-12.4) L 05/28/16 03:42 Neutrophils # 13.3 K/mcL (1.6-8.9) H 05/28/16 03:42 Lymphocytes # 0.3 K/mcL (0.6-4.6) L 05/28/16 03:42 APTT 23.3 Seconds (26.0-36.0) L 05/27/16 06:48 VBG pH 7.45 pH Units (7.32-7.42) H 05/27/16 06:48 VBG pCO2 33 mmHg (41-51) L 05/27/16 06:48 VBG pO2 156 mmHg (25-40) H 05/27/16 06:48 Potassium 5.0 mEq/L (3.5-4.5) H D 05/28/16 03:42 Chloride 111 mEq/L (98-109) H 05/28/16 03:42 BUN 31 mg/dL (7-20) H 05/28/16 03:42 Creatinine 1.12 mg/dL (0.57-1.11) H 05/28/16 03:42 Est GFR ( Amer) 56 (> 60) L 05/28/16 03:42 Est GFR (Non-Af Amer) 46 (> 60) L 05/28/16 03:42 BUN/Creatinine Ratio 28 (6-26) H 05/28/16 03:42 Glucose 315 mg/dL (70-99) H 05/28/16 03:42 POC Glucose 183 (58-89) H 05/29/16 01:19 Hemoglobin A1c 7.0 % (-5.6) H 05/27/16 06:48 Calculated Osmolality 307 (280-300) H 05/28/16 03:42 Calcium 7.6 mg/dL (8.6-10.8) L 05/28/16 03:42 Ionized Calcium 1.10 mmol/L (1.15-1.35) L 05/27/16 06:48 AST 37 Units/L (5-34) H 05/27/16 06:48 ALT 57 Units/L (0-55) H 05/27/16 06:48 C-Reactive Protein 143 mg/L (Less than 5) H 05/27/16 06:48 Albumin 2.3 g/dL (3.5-5.0) L 05/27/16 06:48 Globulin 4.1 g/dL (2.4-3.5) H 05/27/16 06:48 Albumin/Globulin Ratio 0.6 (1.1-2.2) L 05/27/16 06:48 Triglycerides 196 mg/dL (< 150) H 05/27/16 06:48 VLDL Cholesterol, Calc 39 mg/dL (< 31) H 05/27/16 06:48 HDL Cholesterol 37 mg/dL (40-59) L 05/27/16 06:48 TSH 9.712 mcIU/mL (0.350-4.840) H 05/27/16 06:48 Urine Clarity Turbid (Clear) A 05/27/16 01:40 Urine Protein 30 mg/dL (Neg-Trace) H 05/27/16 01:40 Urine Glucose (UA) 250 mg/dL (Normal) H 05/27/16 01:40 Urine Blood Small (Negative) H 05/27/16 01:40 Urine Bilirubin Small (Negative) H 05/27/16 01:40 Ur Leukocyte Esterase Large (Negative) H 05/27/16 01:40 Urine Microscopic RBC 5-15 per hpf (0-3) H 05/27/16 01:40 Urine Microscopic WBC TNTC per hpf (0-3) H 05/27/16 01:40 Ur Squamous Epith Cells Moderate per lpf (None-Few) H 05/27/16 01:40 Urine Bacteria Moderate per hpf (None-Few) H 05/27/16 01:40 - VTE Documentation of Mechanical Device: Intermittent pneumatic compression device Consult Discharge Plan - Plan Additional Instructions: DISCHARGE INSTRUCTIONS Dr. Greer Left Hip Hemiarthroplasty Wound Care -Keep wound / incision area clean and dry. -Change dressing daily with dry gauze and paper tape or medipore tape. -No baths or swimming until otherwise instructed. -After 14 days from surgery date, may begin to shower only if no drainage is present. No submerging the wound under standing water until cleared by your physician (no baths, hot tubs, swimming pools, etc). Sponge baths are the best way to perform personal hygiene while at the same time protecting the wound from moisture. -No scrubbing the wound. You may "pad dry" the wound, but do not rub, as this may open up he wound and pre-dispose to wound infection. -Do not apply lotions or creams to incision site, unless instructed otherwise. -Observe for redness, swelling, or drainage. Please call the clinic immediately if you have fevers, chills with warmth/redness surrounding wound site or if you notice pus drainage from the wound site. Activity -Consult physical therapy; Eval and treat post left hip hemiarthroplasty. -No heavy lifting objects greater than 10 pounds. -You may be weight-bear as tolerated on both of your lower extremities. -Posterior hip precautions for 6 weeks: No bending the hip past 90 degrees. Do not allow the leg to cross the midline of your body (adduction). No twisting motions. Ask your physical therapist to review these precautions with you. Reducing the Risk of Blood Clots -Aspirin 325 mg by mouth twice per day. -Wear knee high compression hose 23 hours per day. Discharge Pain Medications -You will be given a prescription for pain medication. Wean off as tolerated. Do not wait to take the pain medication until the pain is severe, as it will be difficult to "catch up" once this occurs. The pain medication usually reaches its full effect ~1 hour after ingesting. -Your prescribed pain medication may contain Tylenol. You must be careful not to exceed 4,000 mg (4 g) of Tylenol (or generic equivalent), from all sources, within a single 24-hour period. -Some common side effects of the narcotic pain medications (Percocet, Oxycodone , Vicodin, etc) include nausea and itching. Benadryl is a great over the counter medication that helps calm your stomach, decreases your anxiety levels, and minimizes the itching. You can easily purchase this at your local pharmacy as an bzzj-nsx-hfsvybq medication. Please abide by the instructions as printed on t-he bottle. If your nausea persists, make sure to take small amounts of crackers or other security patrol driver foods. Follow-Up -Follow-up with Dr. Greer office in 2 weeks from the surgery date for a post- operative evaluation. -Call the office at [phone] to schedule or confirm your appointment. Referrals: Geovanna Larry MD [Partnered Physician] - 06/02/16 9:30 am Elvin Meza MD [Primary Care Provider] - 08/18/16 11:00 am
[2016-05-29] MEDS: Insulin DETEMIR 100 UNIT/ML X5UNITS SQ SCH ×2 (12:33→23:46)
--- NOTE | 2016-05-29 16:59 | Internal Med Progress Note ---
Date of Encounter: 05/29/16 Time of Encounter: 08:20 - Assessment and plan (1) Hip fracture, left Current Visit: Yes Status: Acute Assessment and plan: Continue PTOT. Awaiting placement to skilled nurse facility. Qualifiers: Encounter type: initial encounter Fracture type: closed Qualified Code(s) : S72.002A - Fracture of unspecified part of neck of left femur, initial encounter for closed fracture (2) Acute kidney injury Current Visit: Yes Status: Resolved (3) Multiple falls Current Visit: Yes Status: Acute Assessment and plan: Placement to [facility] facility for rehabilitation. (4) Chronic atrial fibrillation Current Visit: Yes Status: Chronic Assessment and plan: Rate controlled. Not on anticoagulation due to recurrent falls and high risk for bleeding. (5) Dementia Current Visit: Yes Status: Chronic Qualifiers: Dementia type: Alzheimer's disease Alzheimer's disease onset: late-onset Dementia behavioral disturbance: with behavioral disturbance Qualified Code(s) : G30.1 - Alzheimer's disease with late onset; F02.81 - Dementia in other diseases classified elsewhere with behavioral disturbance (6) Diabetes Current Visit: Yes Status: Chronic Assessment and plan: Improved control but remains elevated. Will further increase insulin regimen. Qualifiers: Diabetes mellitus type: type 2 Diabetes mellitus complication status: with unspecified complications Diabetes mellitus [facility]cf insulin use: without construction trades contractor use Qualified Code(s): E11.8 - Type 2 diabetes mellitus with unspecified complications (7) Hypertension Current Visit: Yes Status: Chronic Assessment and plan: Controlled Qualifiers: Hypertension type: essential hypertension Qualified Code(s): I10 - Essential (primary) hypertension (8) Hypothyroidism Current Visit: Yes Status: Chronic Assessment and plan: On levothyroxine Qualifiers: Hypothyroidism type: acquired Qualified Code(s): E03.9 - Hypothyroidism, unspecified (9) Anemia Current Visit: Yes Status: Acute Assessment and plan: Hemoglobin is slightly lower today at 9.3. We will continue to monitor. If hemoglobin levels to decrease further, will transfuse PRBC. Qualifiers: Anemia type: other cause Other causes of anemia: other cause, not classified Qualified Code(s): D64.89 - Other specified anemias - Subjective Interval history: Patient somnolent at this time. Awakes but falls back to sleep. Denies any new complaints at this time. Pain at surgical site is controlled as long as she is lying down. - Constitutional Vitals: Temp Pulse Resp BP Pulse Ox 97.8 F 89 16 143/80 95 05/29/16 12:30 05/29/16 12:30 05/29/16 12:30 05/29/16 12:30 05/29/16 12:30 General appearance: Present: A&O X 1, disheveled, pleasant, obese - Respiratory Respiratory exam: Present: CTAB. Absent: accessory muscle use, rales, rhonchi, wheezes - Cardiovascular Cardiovascular exam: Present: RRR, +S1, +S2. Absent: diastolic murmur, gallop, rubs, systolic murmur - GI/Abdominal GI/Abdominal exam: Present: normal bowel sounds, soft, no peritoneal signs. Absent: distended, tenderness - Extremities Exam Extremities exam: Present: warm, radial pulses palpable and symetrical. Absent : calf tenderness, cyanotic, full ROM, pedal edema Additional comments: Decreased range of motion with left hip. Left hip also bandaged surgical site Internal Medicine: Result - Labs CBC & Chem 7: 05/29/16 04:17 05/28/16 03:42 Labs: Short CBC 05/29/16 Range/Units 04:17 Hgb 9.3 L (11.5-15.4) g/dL Hct 29.2 L (35.3-44.9) % - ABG Interpretation ABG results: PT/INR, D-dimer PT 11.7 Seconds (9.4-12.1) 05/27/16 06:48 - VTE Documentation of Mechanical Device: Intermittent pneumatic compression device Consult Discharge Plan - Plan Additional Instructions: DISCHARGE INSTRUCTIONS Dr. Greer Left Hip Hemiarthroplasty Wound Care -Keep wound / incision area clean and dry. -Change dressing daily with dry gauze and paper tape or medipore tape. -No baths or swimming until otherwise instructed. -After 14 days from surgery date, may begin to shower only if no drainage is present. No submerging the wound under standing water until cleared by your physician (no baths, hot tubs, swimming pools, etc). Sponge baths are the best way to perform personal hygiene while at the same time protecting the wound from moisture. -No scrubbing the wound. You may "pad dry" the wound, but do not rub, as this may open up he wound and pre-dispose to wound infection. -Do not apply lotions or creams to incision site, unless instructed otherwise. -Observe for redness, swelling, or drainage. Please call the clinic immediately if you have fevers, chills with warmth/redness surrounding wound site or if you notice pus drainage from the wound site. Activity -Consult physical therapy; Eval and treat post left hip hemiarthroplasty. -No heavy lifting objects greater than 10 pounds. -You may be weight-bear as tolerated on both of your lower extremities. -Posterior hip precautions for 6 weeks: No bending the hip past 90 degrees. Do not allow the leg to cross the midline of your body (adduction). No twisting motions. Ask your physical therapist to review these precautions with you. Reducing the Risk of Blood Clots -Aspirin 325 mg by mouth twice per day. -Wear knee high compression hose 23 hours per day. Discharge Pain Medications -You will be given a prescription for pain medication. Wean off as tolerated. Do not wait to take the pain medication until the pain is severe, as it will be difficult to "catch up" once this occurs. The pain medication usually reaches its full effect ~1 hour after ingesting. -Your prescribed pain medication may contain Tylenol. You must be careful not to exceed 4,000 mg (4 g) of Tylenol (or generic equivalent), from all sources, within a single 24-hour period. -Some common side effects of the narcotic pain medications (Percocet, Oxycodone , Vicodin, etc) include nausea and itching. Benadryl is a great over the counter medication that helps calm your stomach, decreases your anxiety levels, and minimizes the itching. You can easily purchase this at your local pharmacy as an [id number] medication. Please abide by the instructions as printed on t-he bottle. If your nausea persists, make sure to take small amounts of crackers or other food service foods. Follow-Up -Follow-up with Dr. Greer office in 2 weeks from the surgery date for a post- operative evaluation. -Call the office at [phone] to schedule or confirm your appointment. Referrals: Geovanna Larry MD [Partnered Physician] - 06/02/16 9:30 am Elvin Meza MD [Primary Care Provider] - 08/18/16 11:00 am - Attending Attestation This document has been at least partially created by [employer] recognition technology by Dr. Scott. Errors in grammar, wording or other phrases may exist. If errors are found after the documentation is signed, they will be addressed individually in the addendum section of this document when appropriate. Medical Decision Making - MDM Narrative Medical decision making narrative: Moderate risk for complications - Lab Data Lab results reviewed: Yes I reviewed the patient's lab results. Result diagrams: 05/29/16 04:17 05/28/16 03:42 Lab Results 05/27/16 05/27/16 05/27/16 Range/Units 01:02 01:40 05:23 WBC (4.3-11.1) K/mcL RBC (3.82-4.97) M/mcL Hgb (11.5-15.4) g/dL Hct (35.3-44.9) % MCV (83.0-100.0) fL MCH (28.0-33.3) pg MCHC (31.6-35.5) g/dL RDW (11.5-14.5) % Plt Count (140-400) K/mcL MPV (9.4-12.4) fL Immature Gran % (0-4) % Seg Neutrophils % % Lymphocytes % % Monocytes % % Eosinophils % % Basophils % % Neutrophils # (1.6-8.9) K/mcL Lymphocytes # (0.6-4.6) K/mcL Monocytes # (0.0-1.3) K/mcL Eosinophils # (0.0-0.6) K/mcL Basophils # (0.0-0.2) K/mcL PT (9.4-12.1) Seconds INR APTT (26.0-36.0) Seconds VBG pH (7.32-7.42) pH Units VBG pCO2 (41-51) mmHg VBG pO2 (25-40) mmHg VBG HCO3 (21-27) mEq/L Sodium (136-145) mEq/L Potassium (3.5-4.5) mEq/L Chloride (98-109) mEq/L Carbon Dioxide (19-29) mEq/L BUN (7-20) mg/dL Creatinine (0.57-1.11) mg/dL Est GFR ( Amer) (> 60) Est GFR (Non-Af Amer) (> 60) BUN/Creatinine Ratio (6-26) Glucose (70-99) mg/dL POC Glucose 330 H 182 H (58-89) Est Mean Plasma Glucose mg/dl Hemoglobin A1c ( - 5.6) % Calculated Osmolality (280-300) Calcium (8.6-10.8) mg/dL Ionized Calcium (1.15-1.35) mmol/L Phosphorus (2.3-4.7) mg/dL Magnesium (1.6-2.6) mg/dL Total Bilirubin (0.2-1.2) mg/dL AST (5-34) Units/L ALT (0-55) Units/L Alkaline Phosphatase (38-126) Units/L C-Reactive Protein (Less than 5) mg/L Serum Total Protein (6.0-8.3) g/dL Albumin (3.5-5.0) g/dL Globulin (2.4-3.5) g/dL Albumin/Globulin Ratio (1.1-2.2) Triglycerides (< 150) mg/dL Cholesterol (< 200) mg/dL LDL Cholesterol, Calc (0-99) mg/dL VLDL Cholesterol, Calc (< 31) mg/dL HDL Cholesterol (40-59) mg/dL Cholesterol/HDL Ratio (0-4.9) TSH (0.350-4.840) mcIU/mL Free T4 (0.70-1.48) ng/dl Urine Color Dark Yellow (Yellow) Urine Clarity Turbid A (Clear) Urine pH 5.5 (5.0-8.0) pH Units Ur Specific [place] 1.023 (1.010-1.025) Urine Protein 30 H (Neg-Trace) mg/dL Urine Glucose (UA) 250 H (Normal) mg/dL Urine Ketones Negative (Negative) mg/dL Urine Blood Small H (Negative) Urine Nitrite Negative (Negative) Urine Bilirubin Small H (Negative) Urine Urobilinogen Normal (Normal) mg/dL Ur Leukocyte Esterase Large H (Negative) Urine Microscopic RBC 5-15 H (0-3) per hpf Urine Microscopic WBC TNTC H (0-3) per hpf Ur Squamous Epith Cells Moderate H (None-Few) per lpf Ur Transition Epith Cell Few (None-Few) per hpf Urine Bacteria Moderate H (None-Few) per hpf Urine Mucus Few (Few) Blood Type Antibody Screen 05/27/16 05/27/16 05/27/16 Range/Units 06:48 06:48 06:48 WBC (4.3-11.1) K/mcL RBC (3.82-4.97) M/mcL Hgb (11.5-15.4) g/dL Hct (35.3-44.9) % MCV (83.0-100.0) fL MCH (28.0-33.3) pg MCHC (31.6-35.5) g/dL RDW (11.5-14.5) % Plt Count (140-400) K/mcL MPV (9.4-12.4) fL Immature Gran % (0-4) % Seg Neutrophils % % Lymphocytes % % Monocytes % % Eosinophils % % Basophils % % Neutrophils # (1.6-8.9) K/mcL Lymphocytes # (0.6-4.6) K/mcL Monocytes # (0.0-1.3) K/mcL Eosinophils # (0.0-0.6) K/mcL Basophils # (0.0-0.2) K/mcL PT 11.7 (9.4-12.1) Seconds INR 1.1 APTT 23.3 L (26.0-36.0) Seconds VBG pH (7.32-7.42) pH Units VBG pCO2 (41-51) mmHg VBG pO2 (25-40) mmHg VBG HCO3 (21-27) mEq/L Sodium 141 (136-145) mEq/L Potassium 3.7 (3.5-4.5) mEq/L Chloride 110 H (98-109) mEq/L Carbon Dioxide 21 (19-29) mEq/L BUN 33 H (7-20) mg/dL Creatinine 1.00 (0.57-1.11) mg/dL Est GFR ( Amer) > 60 (> 60) Est GFR (Non-Af Amer) 53 L (> 60) BUN/Creatinine Ratio 33 H (6-26) Glucose 176 H (70-99) mg/dL POC Glucose (58-89) Est Mean Plasma Glucose 154 mg/dl Hemoglobin A1c 7.0 H ( - 5.6) % Calculated Osmolality 304 H (280-300) Calcium 8.7 (8.6-10.8) mg/dL Ionized Calcium 1.10 L (1.15-1.35) mmol/L Phosphorus 3.2 (2.3-4.7) mg/dL Magnesium 1.6 (1.6-2.6) mg/dL Total Bilirubin 0.4 (0.2-1.2) mg/dL AST 37 H (5-34) Units/L ALT 57 H (0-55) Units/L Alkaline Phosphatase 103 (38-126) Units/L C-Reactive Protein 143 H (Less than 5) mg/L Serum Total Protein 6.4 (6.0-8.3) g/dL Albumin 2.3 L (3.5-5.0) g/dL Globulin 4.1 H (2.4-3.5) g/dL Albumin/Globulin Ratio 0.6 L (1.1-2.2) Triglycerides 196 H (< 150) mg/dL Cholesterol 172 (< 200) mg/dL LDL Cholesterol, Calc 96 (0-99) mg/dL VLDL Cholesterol, Calc 39 H (< 31) mg/dL HDL Cholesterol 37 L (40-59) mg/dL Cholesterol/HDL Ratio 4.6 (0-4.9) TSH 9.712 H (0.350-4.840) mcIU/mL Free T4 1.02 (0.70-1.48) ng/dl Urine Color (Yellow) Urine Clarity (Clear) Urine pH (5.0-8.0) pH Units Ur Specific [place] (1.010-1.025) Urine Protein (Neg-Trace) mg/dL Urine Glucose (UA) (Normal) mg/dL Urine Ketones (Negative) mg/dL Urine Blood (Negative) Urine Nitrite (Negative) Urine Bilirubin (Negative) Urine Urobilinogen (Normal) mg/dL Ur Leukocyte Esterase (Negative) Urine Microscopic RBC (0-3) per hpf Urine Microscopic WBC (0-3) per hpf Ur Squamous Epith Cells (None-Few) per lpf Ur Transition Epith Cell (None-Few) per hpf Urine Bacteria (None-Few) per hpf Urine Mucus (Few) Blood Type Antibody Screen 05/27/16 05/27/16 05/27/16 Range/Units 06:48 12:07 13:01 WBC (4.3-11.1) K/mcL RBC (3.82-4.97) M/mcL Hgb (11.5-15.4) g/dL Hct (35.3-44.9) % MCV (83.0-100.0) fL MCH (28.0-33.3) pg MCHC (31.6-35.5) g/dL RDW (11.5-14.5) % Plt Count (140-400) K/mcL MPV (9.4-12.4) fL Immature Gran % (0-4) % Seg Neutrophils % % Lymphocytes % % Monocytes % % Eosinophils % % Basophils % % Neutrophils # (1.6-8.9) K/mcL Lymphocytes # (0.6-4.6) K/mcL Monocytes # (0.0-1.3) K/mcL Eosinophils # (0.0-0.6) K/mcL Basophils # (0.0-0.2) K/mcL PT (9.4-12.1) Seconds INR APTT (26.0-36.0) Seconds VBG pH 7.45 H (7.32-7.42) pH Units VBG pCO2 33 L (41-51) mmHg VBG pO2 156 H (25-40) mmHg VBG HCO3 22.9 (21-27) mEq/L Sodium (136-145) mEq/L Potassium (3.5-4.5) mEq/L Chloride (98-109) mEq/L Carbon Dioxide (19-29) mEq/L BUN (7-20) mg/dL Creatinine (0.57-1.11) mg/dL Est GFR ( Amer) (> 60) Est GFR (Non-Af Amer) (> 60) BUN/Creatinine Ratio (6-26) Glucose (70-99) mg/dL POC Glucose 174 H (58-89) Est Mean Plasma Glucose mg/dl Hemoglobin A1c ( - 5.6) % Calculated Osmolality (280-300) Calcium (8.6-10.8) mg/dL Ionized Calcium (1.15-1.35) mmol/L Phosphorus (2.3-4.7) mg/dL Magnesium (1.6-2.6) mg/dL Total Bilirubin (0.2-1.2) mg/dL AST (5-34) Units/L ALT (0-55) Units/L Alkaline Phosphatase (38-126) Units/L C-Reactive Protein (Less than 5) mg/L Serum Total Protein (6.0-8.3) g/dL Albumin (3.5-5.0) g/dL Globulin (2.4-3.5) g/dL Albumin/Globulin Ratio (1.1-2.2) Triglycerides (< 150) mg/dL Cholesterol (< 200) mg/dL LDL Cholesterol, Calc (0-99) mg/dL VLDL Cholesterol, Calc (< 31) mg/dL HDL Cholesterol (40-59) mg/dL Cholesterol/HDL Ratio (0-4.9) TSH (0.350-4.840) mcIU/mL Free T4 (0.70-1.48) ng/dl Urine Color (Yellow) Urine Clarity (Clear) Urine pH (5.0-8.0) pH Units Ur Specific [place] (1.010-1.025) Urine Protein (Neg-Trace) mg/dL Urine Glucose (UA) (Normal) mg/dL Urine Ketones (Negative) mg/dL Urine Blood (Negative) Urine Nitrite (Negative) Urine Bilirubin (Negative) Urine Urobilinogen (Normal) mg/dL Ur Leukocyte Esterase (Negative) Urine Microscopic RBC (0-3) per hpf Urine Microscopic WBC (0-3) per hpf Ur Squamous Epith Cells (None-Few) per lpf Ur Transition Epith Cell (None-Few) per hpf Urine Bacteria (None-Few) per hpf Urine Mucus (Few) Blood Type A POSITIVE Antibody Screen NEGATIVE 05/27/16 05/27/16 05/28/16 Range/Units 19:29 21:46 01:14 WBC (4.3-11.1) K/mcL RBC (3.82-4.97) M/mcL Hgb (11.5-15.4) g/dL Hct (35.3-44.9) % MCV (83.0-100.0) fL MCH (28.0-33.3) pg MCHC (31.6-35.5) g/dL RDW (11.5-14.5) % Plt Count (140-400) K/mcL MPV (9.4-12.4) fL Immature Gran % (0-4) % Seg Neutrophils % % Lymphocytes % % Monocytes % % Eosinophils % % Basophils % % Neutrophils # (1.6-8.9) K/mcL Lymphocytes # (0.6-4.6) K/mcL Monocytes # (0.0-1.3) K/mcL Eosinophils # (0.0-0.6) K/mcL Basophils # (0.0-0.2) K/mcL PT (9.4-12.1) Seconds INR APTT (26.0-36.0) Seconds VBG pH (7.32-7.42) pH Units VBG pCO2 (41-51) mmHg VBG pO2 (25-40) mmHg VBG HCO3 (21-27) mEq/L Sodium (136-145) mEq/L Potassium (3.5-4.5) mEq/L Chloride (98-109) mEq/L Carbon Dioxide (19-29) mEq/L BUN (7-20) mg/dL Creatinine (0.57-1.11) mg/dL Est GFR ( Amer) (> 60) Est GFR (Non-Af Amer) (> 60) BUN/Creatinine Ratio (6-26) Glucose (70-99) mg/dL POC Glucose 193 H 263 H 311 H (58-89) Est Mean Plasma Glucose mg/dl Hemoglobin A1c ( - 5.6) % Calculated Osmolality (280-300) Calcium (8.6-10.8) mg/dL Ionized Calcium (1.15-1.35) mmol/L Phosphorus (2.3-4.7) mg/dL Magnesium (1.6-2.6) mg/dL Total Bilirubin (0.2-1.2) mg/dL AST (5-34) Units/L ALT (0-55) Units/L Alkaline Phosphatase (38-126) Units/L C-Reactive Protein (Less than 5) mg/L Serum Total Protein (6.0-8.3) g/dL Albumin (3.5-5.0) g/dL Globulin (2.4-3.5) g/dL Albumin/Globulin Ratio (1.1-2.2) Triglycerides (< 150) mg/dL Cholesterol (< 200) mg/dL LDL Cholesterol, Calc (0-99) mg/dL VLDL Cholesterol, Calc (< 31) mg/dL HDL Cholesterol (40-59) mg/dL Cholesterol/HDL Ratio (0-4.9) TSH (0.350-4.840) mcIU/mL Free T4 (0.70-1.48) ng/dl Urine Color (Yellow) Urine Clarity (Clear) Urine pH (5.0-8.0) pH Units Ur Specific [place] (1.010-1.025) Urine Protein (Neg-Trace) mg/dL Urine Glucose (UA) (Normal) mg/dL Urine Ketones (Negative) mg/dL Urine Blood (Negative) Urine Nitrite (Negative) Urine Bilirubin (Negative) Urine Urobilinogen (Normal) mg/dL Ur Leukocyte Esterase (Negative) Urine Microscopic RBC (0-3) per hpf Urine Microscopic WBC (0-3) per hpf Ur Squamous Epith Cells (None-Few) per lpf Ur Transition Epith Cell (None-Few) per hpf Urine Bacteria (None-Few) per hpf Urine Mucus (Few) Blood Type Antibody Screen 05/28/16 05/28/16 05/28/16 Range/Units 01:16 03:42 03:42 WBC 14.4 H (4.3-11.1) K/mcL RBC 3.66 L (3.82-4.97) M/mcL Hgb 10.0 L D (11.5-15.4) g/dL Hct 32.2 L (35.3-44.9) % MCV 88.0 (83.0-100.0) fL MCH 27.3 L (28.0-33.3) pg MCHC 31.1 L (31.6-35.5) g/dL RDW 15.4 H (11.5-14.5) % Plt Count 335 (140-400) K/mcL MPV 8.9 L (9.4-12.4) fL Immature Gran % 0.6 (0-4) % Seg Neutrophils % 92.4 % Lymphocytes % 2.3 % Monocytes % 4.5 % Eosinophils % 0.0 % Basophils % 0.2 % Neutrophils # 13.3 H (1.6-8.9) K/mcL Lymphocytes # 0.3 L (0.6-4.6) K/mcL Monocytes # 0.7 (0.0-1.3) K/mcL Eosinophils # 0.0 (0.0-0.6) K/mcL Basophils # 0.0 (0.0-0.2) K/mcL PT (9.4-12.1) Seconds INR APTT (26.0-36.0) Seconds VBG pH (7.32-7.42) pH Units VBG pCO2 (41-51) mmHg VBG pO2 (25-40) mmHg VBG HCO3 (21-27) mEq/L Sodium 139 (136-145) mEq/L Potassium 5.0 H D (3.5-4.5) mEq/L Chloride 111 H (98-109) mEq/L Carbon Dioxide 19 (19-29) mEq/L BUN 31 H (7-20) mg/dL Creatinine 1.12 H (0.57-1.11) mg/dL Est GFR ( Amer) 56 L (> 60) Est GFR (Non-Af Amer) 46 L (> 60) BUN/Creatinine Ratio 28 H (6-26) Glucose 315 H (70-99) mg/dL POC Glucose 305 H (58-89) Est Mean Plasma Glucose mg/dl Hemoglobin A1c ( - 5.6) % Calculated Osmolality 307 H (280-300) Calcium 7.6 L (8.6-10.8) mg/dL Ionized Calcium (1.15-1.35) mmol/L Phosphorus (2.3-4.7) mg/dL Magnesium (1.6-2.6) mg/dL Total Bilirubin (0.2-1.2) mg/dL AST (5-34) Units/L ALT (0-55) Units/L Alkaline Phosphatase (38-126) Units/L C-Reactive Protein (Less than 5) mg/L Serum Total Protein (6.0-8.3) g/dL Albumin (3.5-5.0) g/dL Globulin (2.4-3.5) g/dL Albumin/Globulin Ratio (1.1-2.2) Triglycerides (< 150) mg/dL Cholesterol (< 200) mg/dL LDL Cholesterol, Calc (0-99) mg/dL VLDL Cholesterol, Calc (< 31) mg/dL HDL Cholesterol (40-59) mg/dL Cholesterol/HDL Ratio (0-4.9) TSH (0.350-4.840) mcIU/mL Free T4 (0.70-1.48) ng/dl Urine Color (Yellow) Urine Clarity (Clear) Urine pH (5.0-8.0) pH Units Ur Specific [place] (1.010-1.025) Urine Protein (Neg-Trace) mg/dL Urine Glucose (UA) (Normal) mg/dL Urine Ketones (Negative) mg/dL Urine Blood (Negative) Urine Nitrite (Negative) Urine Bilirubin (Negative) Urine Urobilinogen (Normal) mg/dL Ur Leukocyte Esterase (Negative) Urine Microscopic RBC (0-3) per hpf Urine Microscopic WBC (0-3) per hpf Ur Squamous Epith Cells (None-Few) per lpf Ur Transition Epith Cell (None-Few) per hpf Urine Bacteria (None-Few) per hpf Urine Mucus (Few) Blood Type Antibody Screen 05/28/16 05/28/16 05/28/16 Range/Units 05:42 11:07 17:16 WBC (4.3-11.1) K/mcL RBC (3.82-4.97) M/mcL Hgb (11.5-15.4) g/dL Hct (35.3-44.9) % MCV (83.0-100.0) fL MCH (28.0-33.3) pg MCHC (31.6-35.5) g/dL RDW (11.5-14.5) % Plt Count (140-400) K/mcL MPV (9.4-12.4) fL Immature Gran % (0-4) % Seg Neutrophils % % Lymphocytes % % Monocytes % % Eosinophils % % Basophils % % Neutrophils # (1.6-8.9) K/mcL Lymphocytes # (0.6-4.6) K/mcL Monocytes # (0.0-1.3) K/mcL Eosinophils # (0.0-0.6) K/mcL Basophils # (0.0-0.2) K/mcL PT (9.4-12.1) Seconds INR APTT (26.0-36.0) Seconds VBG pH (7.32-7.42) pH Units VBG pCO2 (41-51) mmHg VBG pO2 (25-40) mmHg VBG HCO3 (21-27) mEq/L Sodium (136-145) mEq/L Potassium (3.5-4.5) mEq/L Chloride (98-109) mEq/L Carbon Dioxide (19-29) mEq/L BUN (7-20) mg/dL Creatinine (0.57-1.11) mg/dL Est GFR ( Amer) (> 60) Est GFR (Non-Af Amer) (> 60) BUN/Creatinine Ratio (6-26) Glucose (70-99) mg/dL POC Glucose 256 H 277 H 204 H (58-89) Est Mean Plasma Glucose mg/dl Hemoglobin A1c ( - 5.6) % Calculated Osmolality (280-300) Calcium (8.6-10.8) mg/dL Ionized Calcium (1.15-1.35) mmol/L Phosphorus (2.3-4.7) mg/dL Magnesium (1.6-2.6) mg/dL Total Bilirubin (0.2-1.2) mg/dL AST (5-34) Units/L ALT (0-55) Units/L Alkaline Phosphatase (38-126) Units/L C-Reactive Protein (Less than 5) mg/L Serum Total Protein (6.0-8.3) g/dL Albumin (3.5-5.0) g/dL Globulin (2.4-3.5) g/dL Albumin/Globulin Ratio (1.1-2.2) Triglycerides (< 150) mg/dL Cholesterol (< 200) mg/dL LDL Cholesterol, Calc (0-99) mg/dL VLDL Cholesterol, Calc (< 31) mg/dL HDL Cholesterol (40-59) mg/dL Cholesterol/HDL Ratio (0-4.9) TSH (0.350-4.840) mcIU/mL Free T4 (0.70-1.48) ng/dl Urine Color (Yellow) Urine Clarity (Clear) Urine pH (5.0-8.0) pH Units Ur Specific [place] (1.010-1.025) Urine Protein (Neg-Trace) mg/dL Urine Glucose (UA) (Normal) mg/dL Urine Ketones (Negative) mg/dL Urine Blood (Negative) Urine Nitrite (Negative) Urine Bilirubin (Negative) Urine Urobilinogen (Normal) mg/dL Ur Leukocyte Esterase (Negative) Urine Microscopic RBC (0-3) per hpf Urine Microscopic WBC (0-3) per hpf Ur Squamous Epith Cells (None-Few) per lpf Ur Transition Epith Cell (None-Few) per hpf Urine Bacteria (None-Few) per hpf Urine Mucus (Few) Blood Type Antibody Screen 05/28/16 05/29/16 05/29/16 Range/Units 22:03 01:19 04:17 WBC (4.3-11.1) K/mcL RBC (3.82-4.97) M/mcL Hgb 9.3 L (11.5-15.4) g/dL Hct 29.2 L (35.3-44.9) % MCV (83.0-100.0) fL MCH (28.0-33.3) pg MCHC (31.6-35.5) g/dL RDW (11.5-14.5) % Plt Count (140-400) K/mcL MPV (9.4-12.4) fL Immature Gran % (0-4) % Seg Neutrophils % % Lymphocytes % % Monocytes % % Eosinophils % % Basophils % % Neutrophils # (1.6-8.9) K/mcL Lymphocytes # (0.6-4.6) K/mcL Monocytes # (0.0-1.3) K/mcL Eosinophils # (0.0-0.6) K/mcL Basophils # (0.0-0.2) K/mcL PT (9.4-12.1) Seconds INR APTT (26.0-36.0) Seconds VBG pH (7.32-7.42) pH Units VBG pCO2 (41-51) mmHg VBG pO2 (25-40) mmHg VBG HCO3 (21-27) mEq/L Sodium (136-145) mEq/L Potassium (3.5-4.5) mEq/L Chloride (98-109) mEq/L Carbon Dioxide (19-29) mEq/L BUN (7-20) mg/dL Creatinine (0.57-1.11) mg/dL Est GFR ( Amer) (> 60) Est GFR (Non-Af Amer) (> 60) BUN/Creatinine Ratio (6-26) Glucose (70-99) mg/dL POC Glucose 168 H 183 H (58-89) Est Mean Plasma Glucose mg/dl Hemoglobin A1c ( - 5.6) % Calculated Osmolality (280-300) Calcium (8.6-10.8) mg/dL Ionized Calcium (1.15-1.35) mmol/L Phosphorus (2.3-4.7) mg/dL Magnesium (1.6-2.6) mg/dL Total Bilirubin (0.2-1.2) mg/dL AST (5-34) Units/L ALT (0-55) Units/L Alkaline Phosphatase (38-126) Units/L C-Reactive Protein (Less than 5) mg/L Serum Total Protein (6.0-8.3) g/dL Albumin (3.5-5.0) g/dL Globulin (2.4-3.5) g/dL Albumin/Globulin Ratio (1.1-2.2) Triglycerides (< 150) mg/dL Cholesterol (< 200) mg/dL LDL Cholesterol, Calc (0-99) mg/dL VLDL Cholesterol, Calc (< 31) mg/dL HDL Cholesterol (40-59) mg/dL Cholesterol/HDL Ratio (0-4.9) TSH (0.350-4.840) mcIU/mL Free T4 (0.70-1.48) ng/dl Urine Color (Yellow) Urine Clarity (Clear) Urine pH (5.0-8.0) pH Units Ur Specific [place] (1.010-1.025) Urine Protein (Neg-Trace) mg/dL Urine Glucose (UA) (Normal) mg/dL Urine Ketones (Negative) mg/dL Urine Blood (Negative) Urine Nitrite (Negative) Urine Bilirubin (Negative) Urine Urobilinogen (Normal) mg/dL Ur Leukocyte Esterase (Negative) Urine Microscopic RBC (0-3) per hpf Urine Microscopic WBC (0-3) per hpf Ur Squamous Epith Cells (None-Few) per lpf Ur Transition Epith Cell (None-Few) per hpf Urine Bacteria (None-Few) per hpf Urine Mucus (Few) Blood Type Antibody Screen 05/29/16 Range/Units 07:43 WBC (4.3-11.1) K/mcL RBC (3.82-4.97) M/mcL Hgb (11.5-15.4) g/dL Hct (35.3-44.9) % MCV (83.0-100.0) fL MCH (28.0-33.3) pg MCHC (31.6-35.5) g/dL RDW (11.5-14.5) % Plt Count (140-400) K/mcL MPV (9.4-12.4) fL Immature Gran % (0-4) % Seg Neutrophils % % Lymphocytes % % Monocytes % % Eosinophils % % Basophils % % Neutrophils # (1.6-8.9) K/mcL Lymphocytes # (0.6-4.6) K/mcL Monocytes # (0.0-1.3) K/mcL Eosinophils # (0.0-0.6) K/mcL Basophils # (0.0-0.2) K/mcL PT (9.4-12.1) Seconds INR APTT (26.0-36.0) Seconds VBG pH (7.32-7.42) pH Units VBG pCO2 (41-51) mmHg VBG pO2 (25-40) mmHg VBG HCO3 (21-27) mEq/L Sodium (136-145) mEq/L Potassium (3.5-4.5) mEq/L Chloride (98-109) mEq/L Carbon Dioxide (19-29) mEq/L BUN (7-20) mg/dL Creatinine (0.57-1.11) mg/dL Est GFR ( Amer) (> 60) Est GFR (Non-Af Amer) (> 60) BUN/Creatinine Ratio (6-26) Glucose (70-99) mg/dL POC Glucose 165 H (58-89) Est Mean Plasma Glucose mg/dl Hemoglobin A1c ( - 5.6) % Calculated Osmolality (280-300) Calcium (8.6-10.8) mg/dL Ionized Calcium (1.15-1.35) mmol/L Phosphorus (2.3-4.7) mg/dL Magnesium (1.6-2.6) mg/dL Total Bilirubin (0.2-1.2) mg/dL AST (5-34) Units/L ALT (0-55) Units/L Alkaline Phosphatase (38-126) Units/L C-Reactive Protein (Less than 5) mg/L Serum Total Protein (6.0-8.3) g/dL Albumin (3.5-5.0) g/dL Globulin (2.4-3.5) g/dL Albumin/Globulin Ratio (1.1-2.2) Triglycerides (< 150) mg/dL Cholesterol (< 200) mg/dL LDL Cholesterol, Calc (0-99) mg/dL VLDL Cholesterol, Calc (< 31) mg/dL HDL Cholesterol (40-59) mg/dL Cholesterol/HDL Ratio (0-4.9) TSH (0.350-4.840) mcIU/mL Free T4 (0.70-1.48) ng/dl Urine Color (Yellow) Urine Clarity (Clear) Urine pH (5.0-8.0) pH Units Ur Specific [place] (1.010-1.025) Urine Protein (Neg-Trace) mg/dL Urine Glucose (UA) (Normal) mg/dL Urine Ketones (Negative) mg/dL Urine Blood (Negative) Urine Nitrite (Negative) Urine Bilirubin (Negative) Urine Urobilinogen (Normal) mg/dL Ur Leukocyte Esterase (Negative) Urine Microscopic RBC (0-3) per hpf Urine Microscopic WBC (0-3) per hpf Ur Squamous Epith Cells (None-Few) per lpf Ur Transition Epith Cell (None-Few) per hpf Urine Bacteria (None-Few) per hpf Urine Mucus (Few) Blood Type Antibody Screen
[2016-05-29] MEDS: Diltiazem CD (24hr) 180 MG CAPSULE PO SCH (23:46)
[2016-05-30 04:23] LABS: Basophils % 0.4 %; Eosinophils # 0.4 K/mcL (0.0-0.6); Hemoglobin 9.5 g/dL (11.5-15.4); Immature Granulocytes % 1.7 % (0-4); Lymphocytes # 1.3 K/mcL (0.6-4.6); Mean Corpuscular HGB Conc 31.7 g/dL (31.6-35.5); Mean Corpuscular Hemoglobin 27.3 pg (28.0-33.3); Mean Corpuscular Volume 86.2 fL (83.0-100.0); Mean Platelet Volume 8.9 fL (9.4-12.4); Monocytes # 0.9 K/mcL (0.0-1.3); Monocytes % 8.4 %; Neutrophils # 7.3 K/mcL (1.6-8.9); Platelet Count 397 K/mcL (140-400); Red Blood Count 3.48 M/mcL (3.82-4.97); Red Cell Distribution Width 15.1 % (11.5-14.5); Segmented Neutrophils % 72.5 %
[2016-05-30 04:38] LABS: BUN/Creatinine Ratio 27 (6-26); Calcium 7.9 mg/dL (8.6-10.8); Carbon Dioxide 24 mEq/L (19-29); Chloride 107 mEq/L (98-109); Glucose 139 mg/dL (70-99); Osmolality,Calculated 291 (280-300); Sodium 138 mEq/L (136-145); eGFR For African Americans > 60 (> 60); eGFR For Non-African Americans > 60 (> 60)
[2016-05-30 04:43] LABS: Blood Urea Nitrogen 20 mg/dL (7-20); Potassium 3.9 mEq/L (3.5-4.5)
[2016-05-30] MEDS: Ringers Solution, Lactated 1,000 ML IVC SCH (07:48)
[2016-05-30] MEDS: Aspirin 325 MG TABLET PO SCH ×2 (07:55→21:56)
[2016-05-30] MEDS: clonazePAM 0.5 MG TABLET PO SCH ×4 (07:55→21:56)
[2016-05-30] MEDS: FLUoxetine 20 MG CAPSULE PO SCH (07:55)
[2016-05-30] MEDS: Insulin LISPRO 300 UNITS/3 ML VIAL SQ SCH ×3 (07:56→17:02)
[2016-05-30] MEDS: Insulin DETEMIR 100 UNIT/ML X5UNITS SQ SCH ×2 (08:04→21:56)
--- NOTE | 2016-05-30 10:29 | Internal Med Progress Note ---
Date of Encounter: 05/30/16 Time of Encounter: 09:30 - Assessment and plan (1) Hip fracture, left Current Visit: Yes Status: Acute Assessment and plan: Status post left hip dayday-arthroplasty. Continue pain control and physical therapy. Awaiting placement to [facility] facility. Qualifiers: Encounter type: initial encounter Fracture type: closed Qualified Code(s) : S72.002A - Fracture of unspecified part of neck of left femur, initial encounter for closed fracture (2) Acute kidney injury Current Visit: Yes Status: Resolved (3) Multiple falls Current Visit: Yes Status: Acute Assessment and plan: Placement to [facility] facility for rehabilitation (4) Chronic atrial fibrillation Current Visit: Yes Status: Chronic Assessment and plan: Rate controlled. No anticoagulation due to recurrent falls. Patient currently on aspirin 325 twice daily for DVT prophylaxis. (5) Dementia Current Visit: Yes Status: Chronic Qualifiers: Dementia type: Alzheimer's disease Alzheimer's disease onset: late-onset Dementia behavioral disturbance: with behavioral disturbance Qualified Code(s) : G30.1 - Alzheimer's disease with late onset; F02.81 - Dementia in other diseases classified elsewhere with behavioral disturbance (6) Diabetes Current Visit: Yes Status: Chronic Assessment and plan: Controlled blood sugars. Continue to monitor blood sugars and continue current insulin regimen. Qualifiers: Diabetes mellitus type: type 2 Diabetes mellitus complication status: with unspecified complications Diabetes mellitus group home insulin use: without group home use Qualified Code(s): E11.8 - Type 2 diabetes mellitus with unspecified complications (7) Hypertension Current Visit: Yes Status: Chronic Assessment and plan: Controlled for age. Intermittent elevation. Likely due to pain and exertion. Will monitor blood pressure. If persistently elevated, will start antihypertensives. Qualifiers: Hypertension type: essential hypertension Qualified Code(s): I10 - Essential (primary) hypertension (8) Hypothyroidism Current Visit: Yes Status: Chronic Assessment and plan: On levothyroxin Qualifiers: Hypothyroidism type: acquired Qualified Code(s): E03.9 - Hypothyroidism, unspecified (9) Anemia Current Visit: Yes Status: Acute Assessment and plan: Stable. Hemoglobin 9.5 today. Qualifiers: Anemia type: other cause Other causes of anemia: other cause, not classified Qualified Code(s): D64.89 - Other specified anemias - Subjective Interval history: Patient lying in bed. Appears comfortable. She is currently sleeping. Difficult to arouse but awakes and nods to answer questions. Pain in left hip well controlled - Constitutional Vitals: Temp Pulse Resp BP Pulse Ox 98.4 F 87 20 154/76 97 05/30/16 06:23 05/30/16 06:23 05/30/16 06:23 05/30/16 06:23 05/30/16 06:23 General appearance: Present: pleasant, no acute distress, obese Exam: Somnolent and difficult to awake. - Respiratory Respiratory exam: Present: CTAB. Absent: accessory muscle use, rales, rhonchi, wheezes - Cardiovascular Cardiovascular exam: Present: RRR, +S1, +S2. Absent: diastolic murmur, gallop, rubs, systolic murmur - GI/Abdominal GI/Abdominal exam: Present: normal bowel sounds, soft, no peritoneal signs. Absent: distended, tenderness - Extremities Exam Extremities exam: Present: warm, radial pulses palpable and symetrical. Absent : calf tenderness, cyanotic, pedal edema Additional comments: Decreased range of motion at left hip. - Neurological Exam Neurological exam: Present: no focal deficits. Absent: facial droop, speech deficit Additional comments: Somnolent and difficult to arouse but awakes and nods to questions. - Skin Skin exam: Present: dry, intact Internal Medicine: Result - Labs CBC & Chem 7: 05/30/16 03:49 05/30/16 03:49 Labs: Short CBC 05/30/16 Range/Units 03:49 WBC 10.1 (4.3-11.1) K/mcL Hgb 9.5 L (11.5-15.4) g/dL Hct 30.0 L (35.3-44.9) % Plt Count 397 (140-400) K/mcL Neutrophils # 7.3 (1.6-8.9) K/mcL BMP 05/30/16 03:49 Sodium 138 Potassium 3.9 D Chloride 107 Carbon Dioxide 24 BUN 20 D Creatinine 0.75 Glucose 139 H Calcium 7.9 L - ABG Interpretation ABG results: PT/INR, D-dimer PT 11.7 Seconds (9.4-12.1) 05/27/16 06:48 - VTE Documentation of Mechanical Device: Intermittent pneumatic compression device Consult Discharge Plan - Plan Additional Instructions: DISCHARGE INSTRUCTIONS Dr. Greer Left Hip Hemiarthroplasty Wound Care -Keep wound / incision area clean and dry. -Change dressing daily with dry gauze and paper tape or medipore tape. -No baths or swimming until otherwise instructed. -After 14 days from surgery date, may begin to shower only if no drainage is present. No submerging the wound under standing water until cleared by your physician (no baths, hot tubs, swimming pools, etc). Sponge baths are the best way to perform personal hygiene while at the same time protecting the wound from moisture. -No scrubbing the wound. You may "pad dry" the wound, but do not rub, as this may open up he wound and pre-dispose to wound infection. -Do not apply lotions or creams to incision site, unless instructed otherwise. -Observe for redness, swelling, or drainage. Please call the clinic immediately if you have fevers, chills with warmth/redness surrounding wound site or if you notice pus drainage from the wound site. Activity -Consult physical therapy; Eval and treat post left hip hemiarthroplasty. -No heavy lifting objects greater than 10 pounds. -You may be weight-bear as tolerated on both of your lower extremities. -Posterior hip precautions for 6 weeks: No bending the hip past 90 degrees. Do not allow the leg to cross the midline of your body (adduction). No twisting motions. Ask your physical therapist to review these precautions with you. Reducing the Risk of Blood Clots -Aspirin 325 mg by mouth twice per day. -Wear knee high compression hose 23 hours per day. Discharge Pain Medications -You will be given a prescription for pain medication. Wean off as tolerated. Do not wait to take the pain medication until the pain is severe, as it will be difficult to "catch up" once this occurs. The pain medication usually reaches its full effect ~1 hour after ingesting. -Your prescribed pain medication may contain Tylenol. You must be careful not to exceed 4,000 mg (4 g) of Tylenol (or generic equivalent), from all sources, within a single 24-hour period. -Some common side effects of the narcotic pain medications (Percocet, Oxycodone , Vicodin, etc) include nausea and itching. Benadryl is a great over the counter medication that helps calm your stomach, decreases your anxiety levels, and minimizes the itching. You can easily purchase this at your local pharmacy as an [id number] medication. Please abide by the instructions as printed on t-he bottle. If your nausea persists, make sure to take small amounts of crackers or other vibration technician foods. Follow-Up -Follow-up with Dr. Greer office in 2 weeks from the surgery date for a post- operative evaluation. -Call the office at [phone] to schedule or confirm your appointment. Referrals: Geovanna Larry MD [Partnered Physician] - 06/02/16 9:30 am Elvin Meza MD [Primary Care Provider] - 08/18/16 11:00 am - Attending Attestation This document has been at least partially created by fotopedia recognition technology by Dr. Scott. Errors in grammar, wording or other phrases may exist. If errors are found after the documentation is signed, they will be addressed individually in the addendum section of this document when appropriate. Medical Decision Making - MDM Narrative Medical decision making narrative: Low risk for complications at this time - Lab Data Lab results reviewed: Yes I reviewed the patient's lab results. Result diagrams: 05/30/16 03:49 05/30/16 03:49 Lab Results 05/27/16 05/27/16 05/27/16 Range/Units 01:02 01:40 05:23 WBC (4.3-11.1) K/mcL RBC (3.82-4.97) M/mcL Hgb (11.5-15.4) g/dL Hct (35.3-44.9) % MCV (83.0-100.0) fL MCH (28.0-33.3) pg MCHC (31.6-35.5) g/dL RDW (11.5-14.5) % Plt Count (140-400) K/mcL MPV (9.4-12.4) fL Immature Gran % (0-4) % Seg Neutrophils % % Lymphocytes % % Monocytes % % Eosinophils % % Basophils % % Neutrophils # (1.6-8.9) K/mcL Lymphocytes # (0.6-4.6) K/mcL Monocytes # (0.0-1.3) K/mcL Eosinophils # (0.0-0.6) K/mcL Basophils # (0.0-0.2) K/mcL PT (9.4-12.1) Seconds INR APTT (26.0-36.0) Seconds VBG pH (7.32-7.42) pH Units VBG pCO2 (41-51) mmHg VBG pO2 (25-40) mmHg VBG HCO3 (21-27) mEq/L Sodium (136-145) mEq/L Potassium (3.5-4.5) mEq/L Chloride (98-109) mEq/L Carbon Dioxide (19-29) mEq/L BUN (7-20) mg/dL Creatinine (0.57-1.11) mg/dL Est GFR ( Amer) (> 60) Est GFR (Non-Af Amer) (> 60) BUN/Creatinine Ratio (6-26) Glucose (70-99) mg/dL POC Glucose 330 H 182 H (58-89) Est Mean Plasma Glucose mg/dl Hemoglobin A1c ( - 5.6) % Calculated Osmolality (280-300) Calcium (8.6-10.8) mg/dL Ionized Calcium (1.15-1.35) mmol/L Phosphorus (2.3-4.7) mg/dL Magnesium (1.6-2.6) mg/dL Total Bilirubin (0.2-1.2) mg/dL AST (5-34) Units/L ALT (0-55) Units/L Alkaline Phosphatase (38-126) Units/L C-Reactive Protein (Less than 5) mg/L Serum Total Protein (6.0-8.3) g/dL Albumin (3.5-5.0) g/dL Globulin (2.4-3.5) g/dL Albumin/Globulin Ratio (1.1-2.2) Triglycerides (< 150) mg/dL Cholesterol (< 200) mg/dL LDL Cholesterol, Calc (0-99) mg/dL VLDL Cholesterol, Calc (< 31) mg/dL HDL Cholesterol (40-59) mg/dL Cholesterol/HDL Ratio (0-4.9) TSH (0.350-4.840) mcIU/mL Free T4 (0.70-1.48) ng/dl Urine Color Dark Yellow (Yellow) Urine Clarity Turbid A (Clear) Urine pH 5.5 (5.0-8.0) pH Units Ur Specific [place] 1.023 (1.010-1.025) Urine Protein 30 H (Neg-Trace) mg/dL Urine Glucose (UA) 250 H (Normal) mg/dL Urine Ketones Negative (Negative) mg/dL Urine Blood Small H (Negative) Urine Nitrite Negative (Negative) Urine Bilirubin Small H (Negative) Urine Urobilinogen Normal (Normal) mg/dL Ur Leukocyte Esterase Large H (Negative) Urine Microscopic RBC 5-15 H (0-3) per hpf Urine Microscopic WBC TNTC H (0-3) per hpf Ur Squamous Epith Cells Moderate H (None-Few) per lpf Ur Transition Epith Cell Few (None-Few) per hpf Urine Bacteria Moderate H (None-Few) per hpf Urine Mucus Few (Few) Blood Type Antibody Screen 05/27/16 05/27/16 05/27/16 Range/Units 06:48 06:48 06:48 WBC (4.3-11.1) K/mcL RBC (3.82-4.97) M/mcL Hgb (11.5-15.4) g/dL Hct (35.3-44.9) % MCV (83.0-100.0) fL MCH (28.0-33.3) pg MCHC (31.6-35.5) g/dL RDW (11.5-14.5) % Plt Count (140-400) K/mcL MPV (9.4-12.4) fL Immature Gran % (0-4) % Seg Neutrophils % % Lymphocytes % % Monocytes % % Eosinophils % % Basophils % % Neutrophils # (1.6-8.9) K/mcL Lymphocytes # (0.6-4.6) K/mcL Monocytes # (0.0-1.3) K/mcL Eosinophils # (0.0-0.6) K/mcL Basophils # (0.0-0.2) K/mcL PT 11.7 (9.4-12.1) Seconds INR 1.1 APTT 23.3 L (26.0-36.0) Seconds VBG pH (7.32-7.42) pH Units VBG pCO2 (41-51) mmHg VBG pO2 (25-40) mmHg VBG HCO3 (21-27) mEq/L Sodium 141 (136-145) mEq/L Potassium 3.7 (3.5-4.5) mEq/L Chloride 110 H (98-109) mEq/L Carbon Dioxide 21 (19-29) mEq/L BUN 33 H (7-20) mg/dL Creatinine 1.00 (0.57-1.11) mg/dL Est GFR ( Amer) > 60 (> 60) Est GFR (Non-Af Amer) 53 L (> 60) BUN/Creatinine Ratio 33 H (6-26) Glucose 176 H (70-99) mg/dL POC Glucose (58-89) Est Mean Plasma Glucose 154 mg/dl Hemoglobin A1c 7.0 H ( - 5.6) % Calculated Osmolality 304 H (280-300) Calcium 8.7 (8.6-10.8) mg/dL Ionized Calcium 1.10 L (1.15-1.35) mmol/L Phosphorus 3.2 (2.3-4.7) mg/dL Magnesium 1.6 (1.6-2.6) mg/dL Total Bilirubin 0.4 (0.2-1.2) mg/dL AST 37 H (5-34) Units/L ALT 57 H (0-55) Units/L Alkaline Phosphatase 103 (38-126) Units/L C-Reactive Protein 143 H (Less than 5) mg/L Serum Total Protein 6.4 (6.0-8.3) g/dL Albumin 2.3 L (3.5-5.0) g/dL Globulin 4.1 H (2.4-3.5) g/dL Albumin/Globulin Ratio 0.6 L (1.1-2.2) Triglycerides 196 H (< 150) mg/dL Cholesterol 172 (< 200) mg/dL LDL Cholesterol, Calc 96 (0-99) mg/dL VLDL Cholesterol, Calc 39 H (< 31) mg/dL HDL Cholesterol 37 L (40-59) mg/dL Cholesterol/HDL Ratio 4.6 (0-4.9) TSH 9.712 H (0.350-4.840) mcIU/mL Free T4 1.02 (0.70-1.48) ng/dl Urine Color (Yellow) Urine Clarity (Clear) Urine pH (5.0-8.0) pH Units Ur Specific [place] (1.010-1.025) Urine Protein (Neg-Trace) mg/dL Urine Glucose (UA) (Normal) mg/dL Urine Ketones (Negative) mg/dL Urine Blood (Negative) Urine Nitrite (Negative) Urine Bilirubin (Negative) Urine Urobilinogen (Normal) mg/dL Ur Leukocyte Esterase (Negative) Urine Microscopic RBC (0-3) per hpf Urine Microscopic WBC (0-3) per hpf Ur Squamous Epith Cells (None-Few) per lpf Ur Transition Epith Cell (None-Few) per hpf Urine Bacteria (None-Few) per hpf Urine Mucus (Few) Blood Type Antibody Screen 05/27/16 05/27/16 05/27/16 Range/Units 06:48 12:07 13:01 WBC (4.3-11.1) K/mcL RBC (3.82-4.97) M/mcL Hgb (11.5-15.4) g/dL Hct (35.3-44.9) % MCV (83.0-100.0) fL MCH (28.0-33.3) pg MCHC (31.6-35.5) g/dL RDW (11.5-14.5) % Plt Count (140-400) K/mcL MPV (9.4-12.4) fL Immature Gran % (0-4) % Seg Neutrophils % % Lymphocytes % % Monocytes % % Eosinophils % % Basophils % % Neutrophils # (1.6-8.9) K/mcL Lymphocytes # (0.6-4.6) K/mcL Monocytes # (0.0-1.3) K/mcL Eosinophils # (0.0-0.6) K/mcL Basophils # (0.0-0.2) K/mcL PT (9.4-12.1) Seconds INR APTT (26.0-36.0) Seconds VBG pH 7.45 H (7.32-7.42) pH Units VBG pCO2 33 L (41-51) mmHg VBG pO2 156 H (25-40) mmHg VBG HCO3 22.9 (21-27) mEq/L Sodium (136-145) mEq/L Potassium (3.5-4.5) mEq/L Chloride (98-109) mEq/L Carbon Dioxide (19-29) mEq/L BUN (7-20) mg/dL Creatinine (0.57-1.11) mg/dL Est GFR ( Amer) (> 60) Est GFR (Non-Af Amer) (> 60) BUN/Creatinine Ratio (6-26) Glucose (70-99) mg/dL POC Glucose 174 H (58-89) Est Mean Plasma Glucose mg/dl Hemoglobin A1c ( - 5.6) % Calculated Osmolality (280-300) Calcium (8.6-10.8) mg/dL Ionized Calcium (1.15-1.35) mmol/L Phosphorus (2.3-4.7) mg/dL Magnesium (1.6-2.6) mg/dL Total Bilirubin (0.2-1.2) mg/dL AST (5-34) Units/L ALT (0-55) Units/L Alkaline Phosphatase (38-126) Units/L C-Reactive Protein (Less than 5) mg/L Serum Total Protein (6.0-8.3) g/dL Albumin (3.5-5.0) g/dL Globulin (2.4-3.5) g/dL Albumin/Globulin Ratio (1.1-2.2) Triglycerides (< 150) mg/dL Cholesterol (< 200) mg/dL LDL Cholesterol, Calc (0-99) mg/dL VLDL Cholesterol, Calc (< 31) mg/dL HDL Cholesterol (40-59) mg/dL Cholesterol/HDL Ratio (0-4.9) TSH (0.350-4.840) mcIU/mL Free T4 (0.70-1.48) ng/dl Urine Color (Yellow) Urine Clarity (Clear) Urine pH (5.0-8.0) pH Units Ur Specific [place] (1.010-1.025) Urine Protein (Neg-Trace) mg/dL Urine Glucose (UA) (Normal) mg/dL Urine Ketones (Negative) mg/dL Urine Blood (Negative) Urine Nitrite (Negative) Urine Bilirubin (Negative) Urine Urobilinogen (Normal) mg/dL Ur Leukocyte Esterase (Negative) Urine Microscopic RBC (0-3) per hpf Urine Microscopic WBC (0-3) per hpf Ur Squamous Epith Cells (None-Few) per lpf Ur Transition Epith Cell (None-Few) per hpf Urine Bacteria (None-Few) per hpf Urine Mucus (Few) Blood Type A POSITIVE Antibody Screen NEGATIVE 05/27/16 05/27/16 05/28/16 Range/Units 19:29 21:46 01:14 WBC (4.3-11.1) K/mcL RBC (3.82-4.97) M/mcL Hgb (11.5-15.4) g/dL Hct (35.3-44.9) % MCV (83.0-100.0) fL MCH (28.0-33.3) pg MCHC (31.6-35.5) g/dL RDW (11.5-14.5) % Plt Count (140-400) K/mcL MPV (9.4-12.4) fL Immature Gran % (0-4) % Seg Neutrophils % % Lymphocytes % % Monocytes % % Eosinophils % % Basophils % % Neutrophils # (1.6-8.9) K/mcL Lymphocytes # (0.6-4.6) K/mcL Monocytes # (0.0-1.3) K/mcL Eosinophils # (0.0-0.6) K/mcL Basophils # (0.0-0.2) K/mcL PT (9.4-12.1) Seconds INR APTT (26.0-36.0) Seconds VBG pH (7.32-7.42) pH Units VBG pCO2 (41-51) mmHg VBG pO2 (25-40) mmHg VBG HCO3 (21-27) mEq/L Sodium (136-145) mEq/L Potassium (3.5-4.5) mEq/L Chloride (98-109) mEq/L Carbon Dioxide (19-29) mEq/L BUN (7-20) mg/dL Creatinine (0.57-1.11) mg/dL Est GFR ( Amer) (> 60) Est GFR (Non-Af Amer) (> 60) BUN/Creatinine Ratio (6-26) Glucose (70-99) mg/dL POC Glucose 193 H 263 H 311 H (58-89) Est Mean Plasma Glucose mg/dl Hemoglobin A1c ( - 5.6) % Calculated Osmolality (280-300) Calcium (8.6-10.8) mg/dL Ionized Calcium (1.15-1.35) mmol/L Phosphorus (2.3-4.7) mg/dL Magnesium (1.6-2.6) mg/dL Total Bilirubin (0.2-1.2) mg/dL AST (5-34) Units/L ALT (0-55) Units/L Alkaline Phosphatase (38-126) Units/L C-Reactive Protein (Less than 5) mg/L Serum Total Protein (6.0-8.3) g/dL Albumin (3.5-5.0) g/dL Globulin (2.4-3.5) g/dL Albumin/Globulin Ratio (1.1-2.2) Triglycerides (< 150) mg/dL Cholesterol (< 200) mg/dL LDL Cholesterol, Calc (0-99) mg/dL VLDL Cholesterol, Calc (< 31) mg/dL HDL Cholesterol (40-59) mg/dL Cholesterol/HDL Ratio (0-4.9) TSH (0.350-4.840) mcIU/mL Free T4 (0.70-1.48) ng/dl Urine Color (Yellow) Urine Clarity (Clear) Urine pH (5.0-8.0) pH Units Ur Specific [place] (1.010-1.025) Urine Protein (Neg-Trace) mg/dL Urine Glucose (UA) (Normal) mg/dL Urine Ketones (Negative) mg/dL Urine Blood (Negative) Urine Nitrite (Negative) Urine Bilirubin (Negative) Urine Urobilinogen (Normal) mg/dL Ur Leukocyte Esterase (Negative) Urine Microscopic RBC (0-3) per hpf Urine Microscopic WBC (0-3) per hpf Ur Squamous Epith Cells (None-Few) per lpf Ur Transition Epith Cell (None-Few) per hpf Urine Bacteria (None-Few) per hpf Urine Mucus (Few) Blood Type Antibody Screen 05/28/16 05/28/16 05/28/16 Range/Units 01:16 03:42 03:42 WBC 14.4 H (4.3-11.1) K/mcL RBC 3.66 L (3.82-4.97) M/mcL Hgb 10.0 L D (11.5-15.4) g/dL Hct 32.2 L (35.3-44.9) % MCV 88.0 (83.0-100.0) fL MCH 27.3 L (28.0-33.3) pg MCHC 31.1 L (31.6-35.5) g/dL RDW 15.4 H (11.5-14.5) % Plt Count 335 (140-400) K/mcL MPV 8.9 L (9.4-12.4) fL Immature Gran % 0.6 (0-4) % Seg Neutrophils % 92.4 % Lymphocytes % 2.3 % Monocytes % 4.5 % Eosinophils % 0.0 % Basophils % 0.2 % Neutrophils # 13.3 H (1.6-8.9) K/mcL Lymphocytes # 0.3 L (0.6-4.6) K/mcL Monocytes # 0.7 (0.0-1.3) K/mcL Eosinophils # 0.0 (0.0-0.6) K/mcL Basophils # 0.0 (0.0-0.2) K/mcL PT (9.4-12.1) Seconds INR APTT (26.0-36.0) Seconds VBG pH (7.32-7.42) pH Units VBG pCO2 (41-51) mmHg VBG pO2 (25-40) mmHg VBG HCO3 (21-27) mEq/L Sodium 139 (136-145) mEq/L Potassium 5.0 H D (3.5-4.5) mEq/L Chloride 111 H (98-109) mEq/L Carbon Dioxide 19 (19-29) mEq/L BUN 31 H (7-20) mg/dL Creatinine 1.12 H (0.57-1.11) mg/dL Est GFR ( Amer) 56 L (> 60) Est GFR (Non-Af Amer) 46 L (> 60) BUN/Creatinine Ratio 28 H (6-26) Glucose 315 H (70-99) mg/dL POC Glucose 305 H (58-89) Est Mean Plasma Glucose mg/dl Hemoglobin A1c ( - 5.6) % Calculated Osmolality 307 H (280-300) Calcium 7.6 L (8.6-10.8) mg/dL Ionized Calcium (1.15-1.35) mmol/L Phosphorus (2.3-4.7) mg/dL Magnesium (1.6-2.6) mg/dL Total Bilirubin (0.2-1.2) mg/dL AST (5-34) Units/L ALT (0-55) Units/L Alkaline Phosphatase (38-126) Units/L C-Reactive Protein (Less than 5) mg/L Serum Total Protein (6.0-8.3) g/dL Albumin (3.5-5.0) g/dL Globulin (2.4-3.5) g/dL Albumin/Globulin Ratio (1.1-2.2) Triglycerides (< 150) mg/dL Cholesterol (< 200) mg/dL LDL Cholesterol, Calc (0-99) mg/dL VLDL Cholesterol, Calc (< 31) mg/dL HDL Cholesterol (40-59) mg/dL Cholesterol/HDL Ratio (0-4.9) TSH (0.350-4.840) mcIU/mL Free T4 (0.70-1.48) ng/dl Urine Color (Yellow) Urine Clarity (Clear) Urine pH (5.0-8.0) pH Units Ur Specific [place] (1.010-1.025) Urine Protein (Neg-Trace) mg/dL Urine Glucose (UA) (Normal) mg/dL Urine Ketones (Negative) mg/dL Urine Blood (Negative) Urine Nitrite (Negative) Urine Bilirubin (Negative) Urine Urobilinogen (Normal) mg/dL Ur Leukocyte Esterase (Negative) Urine Microscopic RBC (0-3) per hpf Urine Microscopic WBC (0-3) per hpf Ur Squamous Epith Cells (None-Few) per lpf Ur Transition Epith Cell (None-Few) per hpf Urine Bacteria (None-Few) per hpf Urine Mucus (Few) Blood Type Antibody Screen 05/28/16 05/28/16 05/28/16 Range/Units 05:42 11:07 17:16 WBC (4.3-11.1) K/mcL RBC (3.82-4.97) M/mcL Hgb (11.5-15.4) g/dL Hct (35.3-44.9) % MCV (83.0-100.0) fL MCH (28.0-33.3) pg MCHC (31.6-35.5) g/dL RDW (11.5-14.5) % Plt Count (140-400) K/mcL MPV (9.4-12.4) fL Immature Gran % (0-4) % Seg Neutrophils % % Lymphocytes % % Monocytes % % Eosinophils % % Basophils % % Neutrophils # (1.6-8.9) K/mcL Lymphocytes # (0.6-4.6) K/mcL Monocytes # (0.0-1.3) K/mcL Eosinophils # (0.0-0.6) K/mcL Basophils # (0.0-0.2) K/mcL PT (9.4-12.1) Seconds INR APTT (26.0-36.0) Seconds VBG pH (7.32-7.42) pH Units VBG pCO2 (41-51) mmHg VBG pO2 (25-40) mmHg VBG HCO3 (21-27) mEq/L Sodium (136-145) mEq/L Potassium (3.5-4.5) mEq/L Chloride (98-109) mEq/L Carbon Dioxide (19-29) mEq/L BUN (7-20) mg/dL Creatinine (0.57-1.11) mg/dL Est GFR ( Amer) (> 60) Est GFR (Non-Af Amer) (> 60) BUN/Creatinine Ratio (6-26) Glucose (70-99) mg/dL POC Glucose 256 H 277 H 204 H (58-89) Est Mean Plasma Glucose mg/dl Hemoglobin A1c ( - 5.6) % Calculated Osmolality (280-300) Calcium (8.6-10.8) mg/dL Ionized Calcium (1.15-1.35) mmol/L Phosphorus (2.3-4.7) mg/dL Magnesium (1.6-2.6) mg/dL Total Bilirubin (0.2-1.2) mg/dL AST (5-34) Units/L ALT (0-55) Units/L Alkaline Phosphatase (38-126) Units/L C-Reactive Protein (Less than 5) mg/L Serum Total Protein (6.0-8.3) g/dL Albumin (3.5-5.0) g/dL Globulin (2.4-3.5) g/dL Albumin/Globulin Ratio (1.1-2.2) Triglycerides (< 150) mg/dL Cholesterol (< 200) mg/dL LDL Cholesterol, Calc (0-99) mg/dL VLDL Cholesterol, Calc (< 31) mg/dL HDL Cholesterol (40-59) mg/dL Cholesterol/HDL Ratio (0-4.9) TSH (0.350-4.840) mcIU/mL Free T4 (0.70-1.48) ng/dl Urine Color (Yellow) Urine Clarity (Clear) Urine pH (5.0-8.0) pH Units Ur Specific [place] (1.010-1.025) Urine Protein (Neg-Trace) mg/dL Urine Glucose (UA) (Normal) mg/dL Urine Ketones (Negative) mg/dL Urine Blood (Negative) Urine Nitrite (Negative) Urine Bilirubin (Negative) Urine Urobilinogen (Normal) mg/dL Ur Leukocyte Esterase (Negative) Urine Microscopic RBC (0-3) per hpf Urine Microscopic WBC (0-3) per hpf Ur Squamous Epith Cells (None-Few) per lpf Ur Transition Epith Cell (None-Few) per hpf Urine Bacteria (None-Few) per hpf Urine Mucus (Few) Blood Type Antibody Screen 05/28/16 05/29/16 05/29/16 Range/Units 22:03 01:19 04:17 WBC (4.3-11.1) K/mcL RBC (3.82-4.97) M/mcL Hgb 9.3 L (11.5-15.4) g/dL Hct 29.2 L (35.3-44.9) % MCV (83.0-100.0) fL MCH (28.0-33.3) pg MCHC (31.6-35.5) g/dL RDW (11.5-14.5) % Plt Count (140-400) K/mcL MPV (9.4-12.4) fL Immature Gran % (0-4) % Seg Neutrophils % % Lymphocytes % % Monocytes % % Eosinophils % % Basophils % % Neutrophils # (1.6-8.9) K/mcL Lymphocytes # (0.6-4.6) K/mcL Monocytes # (0.0-1.3) K/mcL Eosinophils # (0.0-0.6) K/mcL Basophils # (0.0-0.2) K/mcL PT (9.4-12.1) Seconds INR APTT (26.0-36.0) Seconds VBG pH (7.32-7.42) pH Units VBG pCO2 (41-51) mmHg VBG pO2 (25-40) mmHg VBG HCO3 (21-27) mEq/L Sodium (136-145) mEq/L Potassium (3.5-4.5) mEq/L Chloride (98-109) mEq/L Carbon Dioxide (19-29) mEq/L BUN (7-20) mg/dL Creatinine (0.57-1.11) mg/dL Est GFR ( Amer) (> 60) Est GFR (Non-Af Amer) (> 60) BUN/Creatinine Ratio (6-26) Glucose (70-99) mg/dL POC Glucose 168 H 183 H (58-89) Est Mean Plasma Glucose mg/dl Hemoglobin A1c ( - 5.6) % Calculated Osmolality (280-300) Calcium (8.6-10.8) mg/dL Ionized Calcium (1.15-1.35) mmol/L Phosphorus (2.3-4.7) mg/dL Magnesium (1.6-2.6) mg/dL Total Bilirubin (0.2-1.2) mg/dL AST (5-34) Units/L ALT (0-55) Units/L Alkaline Phosphatase (38-126) Units/L C-Reactive Protein (Less than 5) mg/L Serum Total Protein (6.0-8.3) g/dL Albumin (3.5-5.0) g/dL Globulin (2.4-3.5) g/dL Albumin/Globulin Ratio (1.1-2.2) Triglycerides (< 150) mg/dL Cholesterol (< 200) mg/dL LDL Cholesterol, Calc (0-99) mg/dL VLDL Cholesterol, Calc (< 31) mg/dL HDL Cholesterol (40-59) mg/dL Cholesterol/HDL Ratio (0-4.9) TSH (0.350-4.840) mcIU/mL Free T4 (0.70-1.48) ng/dl Urine Color (Yellow) Urine Clarity (Clear) Urine pH (5.0-8.0) pH Units Ur Specific [place] (1.010-1.025) Urine Protein (Neg-Trace) mg/dL Urine Glucose (UA) (Normal) mg/dL Urine Ketones (Negative) mg/dL Urine Blood (Negative) Urine Nitrite (Negative) Urine Bilirubin (Negative) Urine Urobilinogen (Normal) mg/dL Ur Leukocyte Esterase (Negative) Urine Microscopic RBC (0-3) per hpf Urine Microscopic WBC (0-3) per hpf Ur Squamous Epith Cells (None-Few) per lpf Ur Transition Epith Cell (None-Few) per hpf Urine Bacteria (None-Few) per hpf Urine Mucus (Few) Blood Type Antibody Screen 05/29/16 05/29/16 05/29/16 Range/Units 07:43 12:24 17:01 WBC (4.3-11.1) K/mcL RBC (3.82-4.97) M/mcL Hgb (11.5-15.4) g/dL Hct (35.3-44.9) % MCV (83.0-100.0) fL MCH (28.0-33.3) pg MCHC (31.6-35.5) g/dL RDW (11.5-14.5) % Plt Count (140-400) K/mcL MPV (9.4-12.4) fL Immature Gran % (0-4) % Seg Neutrophils % % Lymphocytes % % Monocytes % % Eosinophils % % Basophils % % Neutrophils # (1.6-8.9) K/mcL Lymphocytes # (0.6-4.6) K/mcL Monocytes # (0.0-1.3) K/mcL Eosinophils # (0.0-0.6) K/mcL Basophils # (0.0-0.2) K/mcL PT (9.4-12.1) Seconds INR APTT (26.0-36.0) Seconds VBG pH (7.32-7.42) pH Units VBG pCO2 (41-51) mmHg VBG pO2 (25-40) mmHg VBG HCO3 (21-27) mEq/L Sodium (136-145) mEq/L Potassium (3.5-4.5) mEq/L Chloride (98-109) mEq/L Carbon Dioxide (19-29) mEq/L BUN (7-20) mg/dL Creatinine (0.57-1.11) mg/dL Est GFR ( Amer) (> 60) Est GFR (Non-Af Amer) (> 60) BUN/Creatinine Ratio (6-26) Glucose (70-99) mg/dL POC Glucose 165 H 152 H 268 H (58-89) Est Mean Plasma Glucose mg/dl Hemoglobin A1c ( - 5.6) % Calculated Osmolality (280-300) Calcium (8.6-10.8) mg/dL Ionized Calcium (1.15-1.35) mmol/L Phosphorus (2.3-4.7) mg/dL Magnesium (1.6-2.6) mg/dL Total Bilirubin (0.2-1.2) mg/dL AST (5-34) Units/L ALT (0-55) Units/L Alkaline Phosphatase (38-126) Units/L C-Reactive Protein (Less than 5) mg/L Serum Total Protein (6.0-8.3) g/dL Albumin (3.5-5.0) g/dL Globulin (2.4-3.5) g/dL Albumin/Globulin Ratio (1.1-2.2) Triglycerides (< 150) mg/dL Cholesterol (< 200) mg/dL LDL Cholesterol, Calc (0-99) mg/dL VLDL Cholesterol, Calc (< 31) mg/dL HDL Cholesterol (40-59) mg/dL Cholesterol/HDL Ratio (0-4.9) TSH (0.350-4.840) mcIU/mL Free T4 (0.70-1.48) ng/dl Urine Color (Yellow) Urine Clarity (Clear) Urine pH (5.0-8.0) pH Units Ur Specific [place] (1.010-1.025) Urine Protein (Neg-Trace) mg/dL Urine Glucose (UA) (Normal) mg/dL Urine Ketones (Negative) mg/dL Urine Blood (Negative) Urine Nitrite (Negative) Urine Bilirubin (Negative) Urine Urobilinogen (Normal) mg/dL Ur Leukocyte Esterase (Negative) Urine Microscopic RBC (0-3) per hpf Urine Microscopic WBC (0-3) per hpf Ur Squamous Epith Cells (None-Few) per lpf Ur Transition Epith Cell (None-Few) per hpf Urine Bacteria (None-Few) per hpf Urine Mucus (Few) Blood Type Antibody Screen 05/29/16 05/30/16 05/30/16 Range/Units 19:41 03:49 03:49 WBC 10.1 (4.3-11.1) K/mcL RBC 3.48 L (3.82-4.97) M/mcL Hgb 9.5 L (11.5-15.4) g/dL Hct 30.0 L (35.3-44.9) % MCV 86.2 (83.0-100.0) fL MCH 27.3 L (28.0-33.3) pg MCHC 31.7 (31.6-35.5) g/dL RDW 15.1 H (11.5-14.5) % Plt Count 397 (140-400) K/mcL MPV 8.9 L (9.4-12.4) fL Immature Gran % 1.7 (0-4) % Seg Neutrophils % 72.5 % Lymphocytes % 13.0 % Monocytes % 8.4 % Eosinophils % 4.0 % Basophils % 0.4 % Neutrophils # 7.3 (1.6-8.9) K/mcL Lymphocytes # 1.3 (0.6-4.6) K/mcL Monocytes # 0.9 (0.0-1.3) K/mcL Eosinophils # 0.4 (0.0-0.6) K/mcL Basophils # 0.0 (0.0-0.2) K/mcL PT (9.4-12.1) Seconds INR APTT (26.0-36.0) Seconds VBG pH (7.32-7.42) pH Units VBG pCO2 (41-51) mmHg VBG pO2 (25-40) mmHg VBG HCO3 (21-27) mEq/L Sodium 138 (136-145) mEq/L Potassium 3.9 D (3.5-4.5) mEq/L Chloride 107 (98-109) mEq/L Carbon Dioxide 24 (19-29) mEq/L BUN 20 D (7-20) mg/dL Creatinine 0.75 (0.57-1.11) mg/dL Est GFR ( Amer) > 60 (> 60) Est GFR (Non-Af Amer) > 60 (> 60) BUN/Creatinine Ratio 27 H (6-26) Glucose 139 H (70-99) mg/dL POC Glucose 251 H (58-89) Est Mean Plasma Glucose mg/dl Hemoglobin A1c ( - 5.6) % Calculated Osmolality 291 (280-300) Calcium 7.9 L (8.6-10.8) mg/dL Ionized Calcium (1.15-1.35) mmol/L Phosphorus (2.3-4.7) mg/dL Magnesium (1.6-2.6) mg/dL Total Bilirubin (0.2-1.2) mg/dL AST (5-34) Units/L ALT (0-55) Units/L Alkaline Phosphatase (38-126) Units/L C-Reactive Protein (Less than 5) mg/L Serum Total Protein (6.0-8.3) g/dL Albumin (3.5-5.0) g/dL Globulin (2.4-3.5) g/dL Albumin/Globulin Ratio (1.1-2.2) Triglycerides (< 150) mg/dL Cholesterol (< 200) mg/dL LDL Cholesterol, Calc (0-99) mg/dL VLDL Cholesterol, Calc (< 31) mg/dL HDL Cholesterol (40-59) mg/dL Cholesterol/HDL Ratio (0-4.9) TSH (0.350-4.840) mcIU/mL Free T4 (0.70-1.48) ng/dl Urine Color (Yellow) Urine Clarity (Clear) Urine pH (5.0-8.0) pH Units Ur Specific [place] (1.010-1.025) Urine Protein (Neg-Trace) mg/dL Urine Glucose (UA) (Normal) mg/dL Urine Ketones (Negative) mg/dL Urine Blood (Negative) Urine Nitrite (Negative) Urine Bilirubin (Negative) Urine Urobilinogen (Normal) mg/dL Ur Leukocyte Esterase (Negative) Urine Microscopic RBC (0-3) per hpf Urine Microscopic WBC (0-3) per hpf Ur Squamous Epith Cells (None-Few) per lpf Ur Transition Epith Cell (None-Few) per hpf Urine Bacteria (None-Few) per hpf Urine Mucus (Few) Blood Type Antibody Screen
[2016-05-30] MEDS: Diltiazem CD (24hr) 180 MG CAPSULE PO SCH (21:56)
[2016-05-31 04:19] LABS: Hematocrit 31.2 % (35.3-44.9); Hemoglobin 9.8 g/dL (11.5-15.4)
[2016-05-31] MEDS: Aspirin 325 MG TABLET PO SCH ×2 (08:14→20:43)
[2016-05-31] MEDS: FLUoxetine 20 MG CAPSULE PO SCH (08:14)
[2016-05-31] MEDS: clonazePAM 0.5 MG TABLET PO SCH ×4 (08:14→20:43)
[2016-05-31] MEDS: Insulin LISPRO 300 UNITS/3 ML VIAL SQ SCH ×3 (08:14→17:06)
--- NOTE | 2016-05-31 11:57 | Internal Med Progress Note ---
Date of Encounter: 05/31/16 Time of Encounter: 11:15 - Assessment and plan (1) Hip fracture, left Current Visit: Yes Status: Acute Assessment and plan: Continue PTOT. Awaiting placement to skilled rehabilitation. Qualifiers: Encounter type: initial encounter Fracture type: closed Qualified Code(s) : S72.002A - Fracture of unspecified part of neck of left femur, initial encounter for closed fracture (2) Acute kidney injury Current Visit: Yes Status: Resolved (3) Multiple falls Current Visit: Yes Status: Acute (4) Chronic atrial fibrillation Current Visit: Yes Status: Chronic Assessment and plan: Rate controlled. Currently on anticoagulation with aspirin twice daily. (5) Dementia Current Visit: Yes Status: Chronic Qualifiers: Dementia type: Alzheimer's disease Alzheimer's disease onset: late-onset Dementia behavioral disturbance: with behavioral disturbance Qualified Code(s) : G30.1 - Alzheimer's disease with late onset; F02.81 - Dementia in other diseases classified elsewhere with behavioral disturbance (6) Diabetes Current Visit: Yes Status: Chronic Assessment and plan: Improving blood sugars. Continue current insulin regimen Qualifiers: Diabetes mellitus type: type 2 Diabetes mellitus complication status: with unspecified complications Diabetes mellitus director zone insulin use: without custodial use Qualified Code(s): E11.8 - Type 2 diabetes mellitus with unspecified complications (7) Hypertension Current Visit: Yes Status: Chronic Assessment and plan: Well-controlled Qualifiers: Hypertension type: essential hypertension Qualified Code(s): I10 - Essential (primary) hypertension (8) Hypothyroidism Current Visit: Yes Status: Chronic Qualifiers: Hypothyroidism type: acquired Qualified Code(s): E03.9 - Hypothyroidism, unspecified (9) Anemia Current Visit: Yes Status: Acute Assessment and plan: Hemoglobin levels remained stable. Qualifiers: Anemia type: other cause Other causes of anemia: other cause, not classified Qualified Code(s): D64.89 - Other specified anemias - Subjective Interval history: Patient is currently sleeping. No acute issues overnight. No new complaints at this time. - Constitutional Vitals: Temp Pulse Resp BP Pulse Ox 97.4 F L 74 20 128/76 97 05/31/16 11:18 05/31/16 11:18 05/31/16 11:18 05/31/16 11:18 05/31/16 11:18 General appearance: Present: cooperative, pleasant, no acute distress, obese - Respiratory Respiratory exam: Present: CTAB. Absent: accessory muscle use, rales, rhonchi, wheezes - Cardiovascular Cardiovascular exam: Present: RRR, +S1, +S2. Absent: diastolic murmur, gallop, rubs, systolic murmur - GI/Abdominal GI/Abdominal exam: Present: normal bowel sounds, soft, no peritoneal signs. Absent: distended, tenderness - Extremities Exam Extremities exam: Present: warm, radial pulses palpable and symetrical. Absent : calf tenderness, cyanotic, full ROM, pedal edema Internal Medicine: Result - Labs CBC & Chem 7: 05/31/16 04:02 05/30/16 03:49 Labs: Short CBC 05/31/16 Range/Units 04:02 Hgb 9.8 L (11.5-15.4) g/dL Hct 31.2 L (35.3-44.9) % - ABG Interpretation ABG results: PT/INR, D-dimer PT 11.7 Seconds (9.4-12.1) 05/27/16 06:48 - VTE Documentation of Mechanical Device: Intermittent pneumatic compression device Consult Discharge Plan - Plan Additional Instructions: DISCHARGE INSTRUCTIONS Dr. Greer Left Hip Hemiarthroplasty Wound Care -Keep wound / incision area clean and dry. -Change dressing daily with dry gauze and paper tape or medipore tape. -No baths or swimming until otherwise instructed. -After 14 days from surgery date, may begin to shower only if no drainage is present. No submerging the wound under standing water until cleared by your physician (no baths, hot tubs, swimming pools, etc). Sponge baths are the best way to perform personal hygiene while at the same time protecting the wound from moisture. -No scrubbing the wound. You may "pad dry" the wound, but do not rub, as this may open up he wound and pre-dispose to wound infection. -Do not apply lotions or creams to incision site, unless instructed otherwise. -Observe for redness, swelling, or drainage. Please call the clinic immediately if you have fevers, chills with warmth/redness surrounding wound site or if you notice pus drainage from the wound site. Activity -Consult physical therapy; Eval and treat post left hip hemiarthroplasty. -No heavy lifting objects greater than 10 pounds. -You may be weight-bear as tolerated on both of your lower extremities. -Posterior hip precautions for 6 weeks: No bending the hip past 90 degrees. Do not allow the leg to cross the midline of your body (adduction). No twisting motions. Ask your physical therapist to review these precautions with you. Reducing the Risk of Blood Clots -Aspirin 325 mg by mouth twice per day. -Wear knee high compression hose 23 hours per day. Discharge Pain Medications -You will be given a prescription for pain medication. Wean off as tolerated. Do not wait to take the pain medication until the pain is severe, as it will be difficult to "catch up" once this occurs. The pain medication usually reaches its full effect ~1 hour after ingesting. -Your prescribed pain medication may contain Tylenol. You must be careful not to exceed 4,000 mg (4 g) of Tylenol (or generic equivalent), from all sources, within a single 24-hour period. -Some common side effects of the narcotic pain medications (Percocet, Oxycodone , Vicodin, etc) include nausea and itching. Benadryl is a great over the counter medication that helps calm your stomach, decreases your anxiety levels, and minimizes the itching. You can easily purchase this at your local pharmacy as an [id number] medication. Please abide by the instructions as printed on t-he bottle. If your nausea persists, make sure to take small amounts of crackers or other insurance commissioner foods. Follow-Up -Follow-up with Dr. Greer office in 2 weeks from the surgery date for a post- operative evaluation. -Call the office at [phone] to schedule or confirm your appointment. Referrals: Geovanna Larry MD [Partnered Physician] - 06/02/16 9:30 am Elvin Meza MD [Primary Care Provider] - 08/18/16 11:00 am - Attending Attestation This document has been at least partially created by [email or web address] recognition technology by Dr. Scott. Errors in grammar, wording or other phrases may exist. If errors are found after the documentation is signed, they will be addressed individually in the addendum section of this document when appropriate. Medical Decision Making - MDM Narrative Medical decision making narrative: Low risk for complications - Lab Data Result diagrams: 05/31/16 04:02 05/30/16 03:49 Lab Results 05/27/16 05/27/16 05/27/16 Range/Units 01:02 01:40 05:23 WBC (4.3-11.1) K/mcL RBC (3.82-4.97) M/mcL Hgb (11.5-15.4) g/dL Hct (35.3-44.9) % MCV (83.0-100.0) fL MCH (28.0-33.3) pg MCHC (31.6-35.5) g/dL RDW (11.5-14.5) % Plt Count (140-400) K/mcL MPV (9.4-12.4) fL Immature Gran % (0-4) % Seg Neutrophils % % Lymphocytes % % Monocytes % % Eosinophils % % Basophils % % Neutrophils # (1.6-8.9) K/mcL Lymphocytes # (0.6-4.6) K/mcL Monocytes # (0.0-1.3) K/mcL Eosinophils # (0.0-0.6) K/mcL Basophils # (0.0-0.2) K/mcL PT (9.4-12.1) Seconds INR APTT (26.0-36.0) Seconds VBG pH (7.32-7.42) pH Units VBG pCO2 (41-51) mmHg VBG pO2 (25-40) mmHg VBG HCO3 (21-27) mEq/L Sodium (136-145) mEq/L Potassium (3.5-4.5) mEq/L Chloride (98-109) mEq/L Carbon Dioxide (19-29) mEq/L BUN (7-20) mg/dL Creatinine (0.57-1.11) mg/dL Est GFR ( Amer) (> 60) Est GFR (Non-Af Amer) (> 60) BUN/Creatinine Ratio (6-26) Glucose (70-99) mg/dL POC Glucose 330 H 182 H (58-89) Est Mean Plasma Glucose mg/dl Hemoglobin A1c ( - 5.6) % Calculated Osmolality (280-300) Calcium (8.6-10.8) mg/dL Ionized Calcium (1.15-1.35) mmol/L Phosphorus (2.3-4.7) mg/dL Magnesium (1.6-2.6) mg/dL Total Bilirubin (0.2-1.2) mg/dL AST (5-34) Units/L ALT (0-55) Units/L Alkaline Phosphatase (38-126) Units/L C-Reactive Protein (Less than 5) mg/L Serum Total Protein (6.0-8.3) g/dL Albumin (3.5-5.0) g/dL Globulin (2.4-3.5) g/dL Albumin/Globulin Ratio (1.1-2.2) Triglycerides (< 150) mg/dL Cholesterol (< 200) mg/dL LDL Cholesterol, Calc (0-99) mg/dL VLDL Cholesterol, Calc (< 31) mg/dL HDL Cholesterol (40-59) mg/dL Cholesterol/HDL Ratio (0-4.9) TSH (0.350-4.840) mcIU/mL Free T4 (0.70-1.48) ng/dl Urine Color Dark Yellow (Yellow) Urine Clarity Turbid A (Clear) Urine pH 5.5 (5.0-8.0) pH Units Ur Specific [place] 1.023 (1.010-1.025) Urine Protein 30 H (Neg-Trace) mg/dL Urine Glucose (UA) 250 H (Normal) mg/dL Urine Ketones Negative (Negative) mg/dL Urine Blood Small H (Negative) Urine Nitrite Negative (Negative) Urine Bilirubin Small H (Negative) Urine Urobilinogen Normal (Normal) mg/dL Ur Leukocyte Esterase Large H (Negative) Urine Microscopic RBC 5-15 H (0-3) per hpf Urine Microscopic WBC TNTC H (0-3) per hpf Ur Squamous Epith Cells Moderate H (None-Few) per lpf Ur Transition Epith Cell Few (None-Few) per hpf Urine Bacteria Moderate H (None-Few) per hpf Urine Mucus Few (Few) Blood Type Antibody Screen 05/27/16 05/27/16 05/27/16 Range/Units 06:48 06:48 06:48 WBC (4.3-11.1) K/mcL RBC (3.82-4.97) M/mcL Hgb (11.5-15.4) g/dL Hct (35.3-44.9) % MCV (83.0-100.0) fL MCH (28.0-33.3) pg MCHC (31.6-35.5) g/dL RDW (11.5-14.5) % Plt Count (140-400) K/mcL MPV (9.4-12.4) fL Immature Gran % (0-4) % Seg Neutrophils % % Lymphocytes % % Monocytes % % Eosinophils % % Basophils % % Neutrophils # (1.6-8.9) K/mcL Lymphocytes # (0.6-4.6) K/mcL Monocytes # (0.0-1.3) K/mcL Eosinophils # (0.0-0.6) K/mcL Basophils # (0.0-0.2) K/mcL PT 11.7 (9.4-12.1) Seconds INR 1.1 APTT 23.3 L (26.0-36.0) Seconds VBG pH (7.32-7.42) pH Units VBG pCO2 (41-51) mmHg VBG pO2 (25-40) mmHg VBG HCO3 (21-27) mEq/L Sodium 141 (136-145) mEq/L Potassium 3.7 (3.5-4.5) mEq/L Chloride 110 H (98-109) mEq/L Carbon Dioxide 21 (19-29) mEq/L BUN 33 H (7-20) mg/dL Creatinine 1.00 (0.57-1.11) mg/dL Est GFR ( Amer) > 60 (> 60) Est GFR (Non-Af Amer) 53 L (> 60) BUN/Creatinine Ratio 33 H (6-26) Glucose 176 H (70-99) mg/dL POC Glucose (58-89) Est Mean Plasma Glucose 154 mg/dl Hemoglobin A1c 7.0 H ( - 5.6) % Calculated Osmolality 304 H (280-300) Calcium 8.7 (8.6-10.8) mg/dL Ionized Calcium 1.10 L (1.15-1.35) mmol/L Phosphorus 3.2 (2.3-4.7) mg/dL Magnesium 1.6 (1.6-2.6) mg/dL Total Bilirubin 0.4 (0.2-1.2) mg/dL AST 37 H (5-34) Units/L ALT 57 H (0-55) Units/L Alkaline Phosphatase 103 (38-126) Units/L C-Reactive Protein 143 H (Less than 5) mg/L Serum Total Protein 6.4 (6.0-8.3) g/dL Albumin 2.3 L (3.5-5.0) g/dL Globulin 4.1 H (2.4-3.5) g/dL Albumin/Globulin Ratio 0.6 L (1.1-2.2) Triglycerides 196 H (< 150) mg/dL Cholesterol 172 (< 200) mg/dL LDL Cholesterol, Calc 96 (0-99) mg/dL VLDL Cholesterol, Calc 39 H (< 31) mg/dL HDL Cholesterol 37 L (40-59) mg/dL Cholesterol/HDL Ratio 4.6 (0-4.9) TSH 9.712 H (0.350-4.840) mcIU/mL Free T4 1.02 (0.70-1.48) ng/dl Urine Color (Yellow) Urine Clarity (Clear) Urine pH (5.0-8.0) pH Units Ur Specific [place] (1.010-1.025) Urine Protein (Neg-Trace) mg/dL Urine Glucose (UA) (Normal) mg/dL Urine Ketones (Negative) mg/dL Urine Blood (Negative) Urine Nitrite (Negative) Urine Bilirubin (Negative) Urine Urobilinogen (Normal) mg/dL Ur Leukocyte Esterase (Negative) Urine Microscopic RBC (0-3) per hpf Urine Microscopic WBC (0-3) per hpf Ur Squamous Epith Cells (None-Few) per lpf Ur Transition Epith Cell (None-Few) per hpf Urine Bacteria (None-Few) per hpf Urine Mucus (Few) Blood Type Antibody Screen 05/27/16 05/27/16 05/27/16 Range/Units 06:48 12:07 13:01 WBC (4.3-11.1) K/mcL RBC (3.82-4.97) M/mcL Hgb (11.5-15.4) g/dL Hct (35.3-44.9) % MCV (83.0-100.0) fL MCH (28.0-33.3) pg MCHC (31.6-35.5) g/dL RDW (11.5-14.5) % Plt Count (140-400) K/mcL MPV (9.4-12.4) fL Immature Gran % (0-4) % Seg Neutrophils % % Lymphocytes % % Monocytes % % Eosinophils % % Basophils % % Neutrophils # (1.6-8.9) K/mcL Lymphocytes # (0.6-4.6) K/mcL Monocytes # (0.0-1.3) K/mcL Eosinophils # (0.0-0.6) K/mcL Basophils # (0.0-0.2) K/mcL PT (9.4-12.1) Seconds INR APTT (26.0-36.0) Seconds VBG pH 7.45 H (7.32-7.42) pH Units VBG pCO2 33 L (41-51) mmHg VBG pO2 156 H (25-40) mmHg VBG HCO3 22.9 (21-27) mEq/L Sodium (136-145) mEq/L Potassium (3.5-4.5) mEq/L Chloride (98-109) mEq/L Carbon Dioxide (19-29) mEq/L BUN (7-20) mg/dL Creatinine (0.57-1.11) mg/dL Est GFR ( Amer) (> 60) Est GFR (Non-Af Amer) (> 60) BUN/Creatinine Ratio (6-26) Glucose (70-99) mg/dL POC Glucose 174 H (58-89) Est Mean Plasma Glucose mg/dl Hemoglobin A1c ( - 5.6) % Calculated Osmolality (280-300) Calcium (8.6-10.8) mg/dL Ionized Calcium (1.15-1.35) mmol/L Phosphorus (2.3-4.7) mg/dL Magnesium (1.6-2.6) mg/dL Total Bilirubin (0.2-1.2) mg/dL AST (5-34) Units/L ALT (0-55) Units/L Alkaline Phosphatase (38-126) Units/L C-Reactive Protein (Less than 5) mg/L Serum Total Protein (6.0-8.3) g/dL Albumin (3.5-5.0) g/dL Globulin (2.4-3.5) g/dL Albumin/Globulin Ratio (1.1-2.2) Triglycerides (< 150) mg/dL Cholesterol (< 200) mg/dL LDL Cholesterol, Calc (0-99) mg/dL VLDL Cholesterol, Calc (< 31) mg/dL HDL Cholesterol (40-59) mg/dL Cholesterol/HDL Ratio (0-4.9) TSH (0.350-4.840) mcIU/mL Free T4 (0.70-1.48) ng/dl Urine Color (Yellow) Urine Clarity (Clear) Urine pH (5.0-8.0) pH Units Ur Specific [place] (1.010-1.025) Urine Protein (Neg-Trace) mg/dL Urine Glucose (UA) (Normal) mg/dL Urine Ketones (Negative) mg/dL Urine Blood (Negative) Urine Nitrite (Negative) Urine Bilirubin (Negative) Urine Urobilinogen (Normal) mg/dL Ur Leukocyte Esterase (Negative) Urine Microscopic RBC (0-3) per hpf Urine Microscopic WBC (0-3) per hpf Ur Squamous Epith Cells (None-Few) per lpf Ur Transition Epith Cell (None-Few) per hpf Urine Bacteria (None-Few) per hpf Urine Mucus (Few) Blood Type A POSITIVE Antibody Screen NEGATIVE 05/27/16 05/27/16 05/28/16 Range/Units 19:29 21:46 01:14 WBC (4.3-11.1) K/mcL RBC (3.82-4.97) M/mcL Hgb (11.5-15.4) g/dL Hct (35.3-44.9) % MCV (83.0-100.0) fL MCH (28.0-33.3) pg MCHC (31.6-35.5) g/dL RDW (11.5-14.5) % Plt Count (140-400) K/mcL MPV (9.4-12.4) fL Immature Gran % (0-4) % Seg Neutrophils % % Lymphocytes % % Monocytes % % Eosinophils % % Basophils % % Neutrophils # (1.6-8.9) K/mcL Lymphocytes # (0.6-4.6) K/mcL Monocytes # (0.0-1.3) K/mcL Eosinophils # (0.0-0.6) K/mcL Basophils # (0.0-0.2) K/mcL PT (9.4-12.1) Seconds INR APTT (26.0-36.0) Seconds VBG pH (7.32-7.42) pH Units VBG pCO2 (41-51) mmHg VBG pO2 (25-40) mmHg VBG HCO3 (21-27) mEq/L Sodium (136-145) mEq/L Potassium (3.5-4.5) mEq/L Chloride (98-109) mEq/L Carbon Dioxide (19-29) mEq/L BUN (7-20) mg/dL Creatinine (0.57-1.11) mg/dL Est GFR ( Amer) (> 60) Est GFR (Non-Af Amer) (> 60) BUN/Creatinine Ratio (6-26) Glucose (70-99) mg/dL POC Glucose 193 H 263 H 311 H (58-89) Est Mean Plasma Glucose mg/dl Hemoglobin A1c ( - 5.6) % Calculated Osmolality (280-300) Calcium (8.6-10.8) mg/dL Ionized Calcium (1.15-1.35) mmol/L Phosphorus (2.3-4.7) mg/dL Magnesium (1.6-2.6) mg/dL Total Bilirubin (0.2-1.2) mg/dL AST (5-34) Units/L ALT (0-55) Units/L Alkaline Phosphatase (38-126) Units/L C-Reactive Protein (Less than 5) mg/L Serum Total Protein (6.0-8.3) g/dL Albumin (3.5-5.0) g/dL Globulin (2.4-3.5) g/dL Albumin/Globulin Ratio (1.1-2.2) Triglycerides (< 150) mg/dL Cholesterol (< 200) mg/dL LDL Cholesterol, Calc (0-99) mg/dL VLDL Cholesterol, Calc (< 31) mg/dL HDL Cholesterol (40-59) mg/dL Cholesterol/HDL Ratio (0-4.9) TSH (0.350-4.840) mcIU/mL Free T4 (0.70-1.48) ng/dl Urine Color (Yellow) Urine Clarity (Clear) Urine pH (5.0-8.0) pH Units Ur Specific [place] (1.010-1.025) Urine Protein (Neg-Trace) mg/dL Urine Glucose (UA) (Normal) mg/dL Urine Ketones (Negative) mg/dL Urine Blood (Negative) Urine Nitrite (Negative) Urine Bilirubin (Negative) Urine Urobilinogen (Normal) mg/dL Ur Leukocyte Esterase (Negative) Urine Microscopic RBC (0-3) per hpf Urine Microscopic WBC (0-3) per hpf Ur Squamous Epith Cells (None-Few) per lpf Ur Transition Epith Cell (None-Few) per hpf Urine Bacteria (None-Few) per hpf Urine Mucus (Few) Blood Type Antibody Screen 05/28/16 05/28/16 05/28/16 Range/Units 01:16 03:42 03:42 WBC 14.4 H (4.3-11.1) K/mcL RBC 3.66 L (3.82-4.97) M/mcL Hgb 10.0 L D (11.5-15.4) g/dL Hct 32.2 L (35.3-44.9) % MCV 88.0 (83.0-100.0) fL MCH 27.3 L (28.0-33.3) pg MCHC 31.1 L (31.6-35.5) g/dL RDW 15.4 H (11.5-14.5) % Plt Count 335 (140-400) K/mcL MPV 8.9 L (9.4-12.4) fL Immature Gran % 0.6 (0-4) % Seg Neutrophils % 92.4 % Lymphocytes % 2.3 % Monocytes % 4.5 % Eosinophils % 0.0 % Basophils % 0.2 % Neutrophils # 13.3 H (1.6-8.9) K/mcL Lymphocytes # 0.3 L (0.6-4.6) K/mcL Monocytes # 0.7 (0.0-1.3) K/mcL Eosinophils # 0.0 (0.0-0.6) K/mcL Basophils # 0.0 (0.0-0.2) K/mcL PT (9.4-12.1) Seconds INR APTT (26.0-36.0) Seconds VBG pH (7.32-7.42) pH Units VBG pCO2 (41-51) mmHg VBG pO2 (25-40) mmHg VBG HCO3 (21-27) mEq/L Sodium 139 (136-145) mEq/L Potassium 5.0 H D (3.5-4.5) mEq/L Chloride 111 H (98-109) mEq/L Carbon Dioxide 19 (19-29) mEq/L BUN 31 H (7-20) mg/dL Creatinine 1.12 H (0.57-1.11) mg/dL Est GFR ( Amer) 56 L (> 60) Est GFR (Non-Af Amer) 46 L (> 60) BUN/Creatinine Ratio 28 H (6-26) Glucose 315 H (70-99) mg/dL POC Glucose 305 H (58-89) Est Mean Plasma Glucose mg/dl Hemoglobin A1c ( - 5.6) % Calculated Osmolality 307 H (280-300) Calcium 7.6 L (8.6-10.8) mg/dL Ionized Calcium (1.15-1.35) mmol/L Phosphorus (2.3-4.7) mg/dL Magnesium (1.6-2.6) mg/dL Total Bilirubin (0.2-1.2) mg/dL AST (5-34) Units/L ALT (0-55) Units/L Alkaline Phosphatase (38-126) Units/L C-Reactive Protein (Less than 5) mg/L Serum Total Protein (6.0-8.3) g/dL Albumin (3.5-5.0) g/dL Globulin (2.4-3.5) g/dL Albumin/Globulin Ratio (1.1-2.2) Triglycerides (< 150) mg/dL Cholesterol (< 200) mg/dL LDL Cholesterol, Calc (0-99) mg/dL VLDL Cholesterol, Calc (< 31) mg/dL HDL Cholesterol (40-59) mg/dL Cholesterol/HDL Ratio (0-4.9) TSH (0.350-4.840) mcIU/mL Free T4 (0.70-1.48) ng/dl Urine Color (Yellow) Urine Clarity (Clear) Urine pH (5.0-8.0) pH Units Ur Specific [place] (1.010-1.025) Urine Protein (Neg-Trace) mg/dL Urine Glucose (UA) (Normal) mg/dL Urine Ketones (Negative) mg/dL Urine Blood (Negative) Urine Nitrite (Negative) Urine Bilirubin (Negative) Urine Urobilinogen (Normal) mg/dL Ur Leukocyte Esterase (Negative) Urine Microscopic RBC (0-3) per hpf Urine Microscopic WBC (0-3) per hpf Ur Squamous Epith Cells (None-Few) per lpf Ur Transition Epith Cell (None-Few) per hpf Urine Bacteria (None-Few) per hpf Urine Mucus (Few) Blood Type Antibody Screen 05/28/16 05/28/16 05/28/16 Range/Units 05:42 11:07 17:16 WBC (4.3-11.1) K/mcL RBC (3.82-4.97) M/mcL Hgb (11.5-15.4) g/dL Hct (35.3-44.9) % MCV (83.0-100.0) fL MCH (28.0-33.3) pg MCHC (31.6-35.5) g/dL RDW (11.5-14.5) % Plt Count (140-400) K/mcL MPV (9.4-12.4) fL Immature Gran % (0-4) % Seg Neutrophils % % Lymphocytes % % Monocytes % % Eosinophils % % Basophils % % Neutrophils # (1.6-8.9) K/mcL Lymphocytes # (0.6-4.6) K/mcL Monocytes # (0.0-1.3) K/mcL Eosinophils # (0.0-0.6) K/mcL Basophils # (0.0-0.2) K/mcL PT (9.4-12.1) Seconds INR APTT (26.0-36.0) Seconds VBG pH (7.32-7.42) pH Units VBG pCO2 (41-51) mmHg VBG pO2 (25-40) mmHg VBG HCO3 (21-27) mEq/L Sodium (136-145) mEq/L Potassium (3.5-4.5) mEq/L Chloride (98-109) mEq/L Carbon Dioxide (19-29) mEq/L BUN (7-20) mg/dL Creatinine (0.57-1.11) mg/dL Est GFR ( Amer) (> 60) Est GFR (Non-Af Amer) (> 60) BUN/Creatinine Ratio (6-26) Glucose (70-99) mg/dL POC Glucose 256 H 277 H 204 H (58-89) Est Mean Plasma Glucose mg/dl Hemoglobin A1c ( - 5.6) % Calculated Osmolality (280-300) Calcium (8.6-10.8) mg/dL Ionized Calcium (1.15-1.35) mmol/L Phosphorus (2.3-4.7) mg/dL Magnesium (1.6-2.6) mg/dL Total Bilirubin (0.2-1.2) mg/dL AST (5-34) Units/L ALT (0-55) Units/L Alkaline Phosphatase (38-126) Units/L C-Reactive Protein (Less than 5) mg/L Serum Total Protein (6.0-8.3) g/dL Albumin (3.5-5.0) g/dL Globulin (2.4-3.5) g/dL Albumin/Globulin Ratio (1.1-2.2) Triglycerides (< 150) mg/dL Cholesterol (< 200) mg/dL LDL Cholesterol, Calc (0-99) mg/dL VLDL Cholesterol, Calc (< 31) mg/dL HDL Cholesterol (40-59) mg/dL Cholesterol/HDL Ratio (0-4.9) TSH (0.350-4.840) mcIU/mL Free T4 (0.70-1.48) ng/dl Urine Color (Yellow) Urine Clarity (Clear) Urine pH (5.0-8.0) pH Units Ur Specific [place] (1.010-1.025) Urine Protein (Neg-Trace) mg/dL Urine Glucose (UA) (Normal) mg/dL Urine Ketones (Negative) mg/dL Urine Blood (Negative) Urine Nitrite (Negative) Urine Bilirubin (Negative) Urine Urobilinogen (Normal) mg/dL Ur Leukocyte Esterase (Negative) Urine Microscopic RBC (0-3) per hpf Urine Microscopic WBC (0-3) per hpf Ur Squamous Epith Cells (None-Few) per lpf Ur Transition Epith Cell (None-Few) per hpf Urine Bacteria (None-Few) per hpf Urine Mucus (Few) Blood Type Antibody Screen 05/28/16 05/29/16 05/29/16 Range/Units 22:03 01:19 04:17 WBC (4.3-11.1) K/mcL RBC (3.82-4.97) M/mcL Hgb 9.3 L (11.5-15.4) g/dL Hct 29.2 L (35.3-44.9) % MCV (83.0-100.0) fL MCH (28.0-33.3) pg MCHC (31.6-35.5) g/dL RDW (11.5-14.5) % Plt Count (140-400) K/mcL MPV (9.4-12.4) fL Immature Gran % (0-4) % Seg Neutrophils % % Lymphocytes % % Monocytes % % Eosinophils % % Basophils % % Neutrophils # (1.6-8.9) K/mcL Lymphocytes # (0.6-4.6) K/mcL Monocytes # (0.0-1.3) K/mcL Eosinophils # (0.0-0.6) K/mcL Basophils # (0.0-0.2) K/mcL PT (9.4-12.1) Seconds INR APTT (26.0-36.0) Seconds VBG pH (7.32-7.42) pH Units VBG pCO2 (41-51) mmHg VBG pO2 (25-40) mmHg VBG HCO3 (21-27) mEq/L Sodium (136-145) mEq/L Potassium (3.5-4.5) mEq/L Chloride (98-109) mEq/L Carbon Dioxide (19-29) mEq/L BUN (7-20) mg/dL Creatinine (0.57-1.11) mg/dL Est GFR ( Amer) (> 60) Est GFR (Non-Af Amer) (> 60) BUN/Creatinine Ratio (6-26) Glucose (70-99) mg/dL POC Glucose 168 H 183 H (58-89) Est Mean Plasma Glucose mg/dl Hemoglobin A1c ( - 5.6) % Calculated Osmolality (280-300) Calcium (8.6-10.8) mg/dL Ionized Calcium (1.15-1.35) mmol/L Phosphorus (2.3-4.7) mg/dL Magnesium (1.6-2.6) mg/dL Total Bilirubin (0.2-1.2) mg/dL AST (5-34) Units/L ALT (0-55) Units/L Alkaline Phosphatase (38-126) Units/L C-Reactive Protein (Less than 5) mg/L Serum Total Protein (6.0-8.3) g/dL Albumin (3.5-5.0) g/dL Globulin (2.4-3.5) g/dL Albumin/Globulin Ratio (1.1-2.2) Triglycerides (< 150) mg/dL Cholesterol (< 200) mg/dL LDL Cholesterol, Calc (0-99) mg/dL VLDL Cholesterol, Calc (< 31) mg/dL HDL Cholesterol (40-59) mg/dL Cholesterol/HDL Ratio (0-4.9) TSH (0.350-4.840) mcIU/mL Free T4 (0.70-1.48) ng/dl Urine Color (Yellow) Urine Clarity (Clear) Urine pH (5.0-8.0) pH Units Ur Specific [place] (1.010-1.025) Urine Protein (Neg-Trace) mg/dL Urine Glucose (UA) (Normal) mg/dL Urine Ketones (Negative) mg/dL Urine Blood (Negative) Urine Nitrite (Negative) Urine Bilirubin (Negative) Urine Urobilinogen (Normal) mg/dL Ur Leukocyte Esterase (Negative) Urine Microscopic RBC (0-3) per hpf Urine Microscopic WBC (0-3) per hpf Ur Squamous Epith Cells (None-Few) per lpf Ur Transition Epith Cell (None-Few) per hpf Urine Bacteria (None-Few) per hpf Urine Mucus (Few) Blood Type Antibody Screen 05/29/16 05/29/16 05/29/16 Range/Units 07:43 12:24 17:01 WBC (4.3-11.1) K/mcL RBC (3.82-4.97) M/mcL Hgb (11.5-15.4) g/dL Hct (35.3-44.9) % MCV (83.0-100.0) fL MCH (28.0-33.3) pg MCHC (31.6-35.5) g/dL RDW (11.5-14.5) % Plt Count (140-400) K/mcL MPV (9.4-12.4) fL Immature Gran % (0-4) % Seg Neutrophils % % Lymphocytes % % Monocytes % % Eosinophils % % Basophils % % Neutrophils # (1.6-8.9) K/mcL Lymphocytes # (0.6-4.6) K/mcL Monocytes # (0.0-1.3) K/mcL Eosinophils # (0.0-0.6) K/mcL Basophils # (0.0-0.2) K/mcL PT (9.4-12.1) Seconds INR APTT (26.0-36.0) Seconds VBG pH (7.32-7.42) pH Units VBG pCO2 (41-51) mmHg VBG pO2 (25-40) mmHg VBG HCO3 (21-27) mEq/L Sodium (136-145) mEq/L Potassium (3.5-4.5) mEq/L Chloride (98-109) mEq/L Carbon Dioxide (19-29) mEq/L BUN (7-20) mg/dL Creatinine (0.57-1.11) mg/dL Est GFR ( Amer) (> 60) Est GFR (Non-Af Amer) (> 60) BUN/Creatinine Ratio (6-26) Glucose (70-99) mg/dL POC Glucose 165 H 152 H 268 H (58-89) Est Mean Plasma Glucose mg/dl Hemoglobin A1c ( - 5.6) % Calculated Osmolality (280-300) Calcium (8.6-10.8) mg/dL Ionized Calcium (1.15-1.35) mmol/L Phosphorus (2.3-4.7) mg/dL Magnesium (1.6-2.6) mg/dL Total Bilirubin (0.2-1.2) mg/dL AST (5-34) Units/L ALT (0-55) Units/L Alkaline Phosphatase (38-126) Units/L C-Reactive Protein (Less than 5) mg/L Serum Total Protein (6.0-8.3) g/dL Albumin (3.5-5.0) g/dL Globulin (2.4-3.5) g/dL Albumin/Globulin Ratio (1.1-2.2) Triglycerides (< 150) mg/dL Cholesterol (< 200) mg/dL LDL Cholesterol, Calc (0-99) mg/dL VLDL Cholesterol, Calc (< 31) mg/dL HDL Cholesterol (40-59) mg/dL Cholesterol/HDL Ratio (0-4.9) TSH (0.350-4.840) mcIU/mL Free T4 (0.70-1.48) ng/dl Urine Color (Yellow) Urine Clarity (Clear) Urine pH (5.0-8.0) pH Units Ur Specific [place] (1.010-1.025) Urine Protein (Neg-Trace) mg/dL Urine Glucose (UA) (Normal) mg/dL Urine Ketones (Negative) mg/dL Urine Blood (Negative) Urine Nitrite (Negative) Urine Bilirubin (Negative) Urine Urobilinogen (Normal) mg/dL Ur Leukocyte Esterase (Negative) Urine Microscopic RBC (0-3) per hpf Urine Microscopic WBC (0-3) per hpf Ur Squamous Epith Cells (None-Few) per lpf Ur Transition Epith Cell (None-Few) per hpf Urine Bacteria (None-Few) per hpf Urine Mucus (Few) Blood Type Antibody Screen 05/29/16 05/30/16 05/30/16 Range/Units 19:41 03:49 03:49 WBC 10.1 (4.3-11.1) K/mcL RBC 3.48 L (3.82-4.97) M/mcL Hgb 9.5 L (11.5-15.4) g/dL Hct 30.0 L (35.3-44.9) % MCV 86.2 (83.0-100.0) fL MCH 27.3 L (28.0-33.3) pg MCHC 31.7 (31.6-35.5) g/dL RDW 15.1 H (11.5-14.5) % Plt Count 397 (140-400) K/mcL MPV 8.9 L (9.4-12.4) fL Immature Gran % 1.7 (0-4) % Seg Neutrophils % 72.5 % Lymphocytes % 13.0 % Monocytes % 8.4 % Eosinophils % 4.0 % Basophils % 0.4 % Neutrophils # 7.3 (1.6-8.9) K/mcL Lymphocytes # 1.3 (0.6-4.6) K/mcL Monocytes # 0.9 (0.0-1.3) K/mcL Eosinophils # 0.4 (0.0-0.6) K/mcL Basophils # 0.0 (0.0-0.2) K/mcL PT (9.4-12.1) Seconds INR APTT (26.0-36.0) Seconds VBG pH (7.32-7.42) pH Units VBG pCO2 (41-51) mmHg VBG pO2 (25-40) mmHg VBG HCO3 (21-27) mEq/L Sodium 138 (136-145) mEq/L Potassium 3.9 D (3.5-4.5) mEq/L Chloride 107 (98-109) mEq/L Carbon Dioxide 24 (19-29) mEq/L BUN 20 D (7-20) mg/dL Creatinine 0.75 (0.57-1.11) mg/dL Est GFR ( Amer) > 60 (> 60) Est GFR (Non-Af Amer) > 60 (> 60) BUN/Creatinine Ratio 27 H (6-26) Glucose 139 H (70-99) mg/dL POC Glucose 251 H (58-89) Est Mean Plasma Glucose mg/dl Hemoglobin A1c ( - 5.6) % Calculated Osmolality 291 (280-300) Calcium 7.9 L (8.6-10.8) mg/dL Ionized Calcium (1.15-1.35) mmol/L Phosphorus (2.3-4.7) mg/dL Magnesium (1.6-2.6) mg/dL Total Bilirubin (0.2-1.2) mg/dL AST (5-34) Units/L ALT (0-55) Units/L Alkaline Phosphatase (38-126) Units/L C-Reactive Protein (Less than 5) mg/L Serum Total Protein (6.0-8.3) g/dL Albumin (3.5-5.0) g/dL Globulin (2.4-3.5) g/dL Albumin/Globulin Ratio (1.1-2.2) Triglycerides (< 150) mg/dL Cholesterol (< 200) mg/dL LDL Cholesterol, Calc (0-99) mg/dL VLDL Cholesterol, Calc (< 31) mg/dL HDL Cholesterol (40-59) mg/dL Cholesterol/HDL Ratio (0-4.9) TSH (0.350-4.840) mcIU/mL Free T4 (0.70-1.48) ng/dl Urine Color (Yellow) Urine Clarity (Clear) Urine pH (5.0-8.0) pH Units Ur Specific [place] (1.010-1.025) Urine Protein (Neg-Trace) mg/dL Urine Glucose (UA) (Normal) mg/dL Urine Ketones (Negative) mg/dL Urine Blood (Negative) Urine Nitrite (Negative) Urine Bilirubin (Negative) Urine Urobilinogen (Normal) mg/dL Ur Leukocyte Esterase (Negative) Urine Microscopic RBC (0-3) per hpf Urine Microscopic WBC (0-3) per hpf Ur Squamous Epith Cells (None-Few) per lpf Ur Transition Epith Cell (None-Few) per hpf Urine Bacteria (None-Few) per hpf Urine Mucus (Few) Blood Type Antibody Screen 05/30/16 05/30/16 05/30/16 Range/Units 07:22 11:33 17:00 WBC (4.3-11.1) K/mcL RBC (3.82-4.97) M/mcL Hgb (11.5-15.4) g/dL Hct (35.3-44.9) % MCV (83.0-100.0) fL MCH (28.0-33.3) pg MCHC (31.6-35.5) g/dL RDW (11.5-14.5) % Plt Count (140-400) K/mcL MPV (9.4-12.4) fL Immature Gran % (0-4) % Seg Neutrophils % % Lymphocytes % % Monocytes % % Eosinophils % % Basophils % % Neutrophils # (1.6-8.9) K/mcL Lymphocytes # (0.6-4.6) K/mcL Monocytes # (0.0-1.3) K/mcL Eosinophils # (0.0-0.6) K/mcL Basophils # (0.0-0.2) K/mcL PT (9.4-12.1) Seconds INR APTT (26.0-36.0) Seconds VBG pH (7.32-7.42) pH Units VBG pCO2 (41-51) mmHg VBG pO2 (25-40) mmHg VBG HCO3 (21-27) mEq/L Sodium (136-145) mEq/L Potassium (3.5-4.5) mEq/L Chloride (98-109) mEq/L Carbon Dioxide (19-29) mEq/L BUN (7-20) mg/dL Creatinine (0.57-1.11) mg/dL Est GFR ( Amer) (> 60) Est GFR (Non-Af Amer) (> 60) BUN/Creatinine Ratio (6-26) Glucose (70-99) mg/dL POC Glucose 133 H 165 H 205 H (58-89) Est Mean Plasma Glucose mg/dl Hemoglobin A1c ( - 5.6) % Calculated Osmolality (280-300) Calcium (8.6-10.8) mg/dL Ionized Calcium (1.15-1.35) mmol/L Phosphorus (2.3-4.7) mg/dL Magnesium (1.6-2.6) mg/dL Total Bilirubin (0.2-1.2) mg/dL AST (5-34) Units/L ALT (0-55) Units/L Alkaline Phosphatase (38-126) Units/L C-Reactive Protein (Less than 5) mg/L Serum Total Protein (6.0-8.3) g/dL Albumin (3.5-5.0) g/dL Globulin (2.4-3.5) g/dL Albumin/Globulin Ratio (1.1-2.2) Triglycerides (< 150) mg/dL Cholesterol (< 200) mg/dL LDL Cholesterol, Calc (0-99) mg/dL VLDL Cholesterol, Calc (< 31) mg/dL HDL Cholesterol (40-59) mg/dL Cholesterol/HDL Ratio (0-4.9) TSH (0.350-4.840) mcIU/mL Free T4 (0.70-1.48) ng/dl Urine Color (Yellow) Urine Clarity (Clear) Urine pH (5.0-8.0) pH Units Ur Specific [place] (1.010-1.025) Urine Protein (Neg-Trace) mg/dL Urine Glucose (UA) (Normal) mg/dL Urine Ketones (Negative) mg/dL Urine Blood (Negative) Urine Nitrite (Negative) Urine Bilirubin (Negative) Urine Urobilinogen (Normal) mg/dL Ur Leukocyte Esterase (Negative) Urine Microscopic RBC (0-3) per hpf Urine Microscopic WBC (0-3) per hpf Ur Squamous Epith Cells (None-Few) per lpf Ur Transition Epith Cell (None-Few) per hpf Urine Bacteria (None-Few) per hpf Urine Mucus (Few) Blood Type Antibody Screen 05/30/16 05/31/16 Range/Units 21:13 04:02 WBC (4.3-11.1) K/mcL RBC (3.82-4.97) M/mcL Hgb 9.8 L (11.5-15.4) g/dL Hct 31.2 L (35.3-44.9) % MCV (83.0-100.0) fL MCH (28.0-33.3) pg MCHC (31.6-35.5) g/dL RDW (11.5-14.5) % Plt Count (140-400) K/mcL MPV (9.4-12.4) fL Immature Gran % (0-4) % Seg Neutrophils % % Lymphocytes % % Monocytes % % Eosinophils % % Basophils % % Neutrophils # (1.6-8.9) K/mcL Lymphocytes # (0.6-4.6) K/mcL Monocytes # (0.0-1.3) K/mcL Eosinophils # (0.0-0.6) K/mcL Basophils # (0.0-0.2) K/mcL PT (9.4-12.1) Seconds INR APTT (26.0-36.0) Seconds VBG pH (7.32-7.42) pH Units VBG pCO2 (41-51) mmHg VBG pO2 (25-40) mmHg VBG HCO3 (21-27) mEq/L Sodium (136-145) mEq/L Potassium (3.5-4.5) mEq/L Chloride (98-109) mEq/L Carbon Dioxide (19-29) mEq/L BUN (7-20) mg/dL Creatinine (0.57-1.11) mg/dL Est GFR ( Amer) (> 60) Est GFR (Non-Af Amer) (> 60) BUN/Creatinine Ratio (6-26) Glucose (70-99) mg/dL POC Glucose 163 H (58-89) Est Mean Plasma Glucose mg/dl Hemoglobin A1c ( - 5.6) % Calculated Osmolality (280-300) Calcium (8.6-10.8) mg/dL Ionized Calcium (1.15-1.35) mmol/L Phosphorus (2.3-4.7) mg/dL Magnesium (1.6-2.6) mg/dL Total Bilirubin (0.2-1.2) mg/dL AST (5-34) Units/L ALT (0-55) Units/L Alkaline Phosphatase (38-126) Units/L C-Reactive Protein (Less than 5) mg/L Serum Total Protein (6.0-8.3) g/dL Albumin (3.5-5.0) g/dL Globulin (2.4-3.5) g/dL Albumin/Globulin Ratio (1.1-2.2) Triglycerides (< 150) mg/dL Cholesterol (< 200) mg/dL LDL Cholesterol, Calc (0-99) mg/dL VLDL Cholesterol, Calc (< 31) mg/dL HDL Cholesterol (40-59) mg/dL Cholesterol/HDL Ratio (0-4.9) TSH (0.350-4.840) mcIU/mL Free T4 (0.70-1.48) ng/dl Urine Color (Yellow) Urine Clarity (Clear) Urine pH (5.0-8.0) pH Units Ur Specific [place] (1.010-1.025) Urine Protein (Neg-Trace) mg/dL Urine Glucose (UA) (Normal) mg/dL Urine Ketones (Negative) mg/dL Urine Blood (Negative) Urine Nitrite (Negative) Urine Bilirubin (Negative) Urine Urobilinogen (Normal) mg/dL Ur Leukocyte Esterase (Negative) Urine Microscopic RBC (0-3) per hpf Urine Microscopic WBC (0-3) per hpf Ur Squamous Epith Cells (None-Few) per lpf Ur Transition Epith Cell (None-Few) per hpf Urine Bacteria (None-Few) per hpf Urine Mucus (Few) Blood Type Antibody Screen
[2016-05-31] MEDS: Insulin DETEMIR 100 UNIT/ML X5UNITS SQ SCH ×2 (12:10→20:43)
[2016-05-31] MEDS: Diltiazem CD (24hr) 180 MG CAPSULE PO SCH (20:43)
[2016-06-01 05:29] LABS: Hematocrit 30.6 % (35.3-44.9); Hemoglobin 9.7 g/dL (11.5-15.4)
--- NOTE | 2016-06-01 07:44 | Orthopedics Progress Note ---
Date of Encounter: 06/01/16 Time of Encounter: 07:42 - Assessment and Plan (1) Hip fracture, left Current Visit: Yes Status: Acute Qualifiers: Encounter type: initial encounter Fracture type: closed Qualified Code(s) : S72.002A - Fracture of unspecified part of neck of left femur, initial encounter for closed fracture Subjective Principal diagnosis: Left Hip Hemiarthoplasty 05/27/16 - Interval history: Subjective: Very drowsy this AM. Does follow commands. Objective: -Afebrile, vitals stable -Left thigh dressing clean, dry, and inact. -No pain with passive hip motion. -She actively flexes and extends the toes and ankle on command. -The foot is warm and well perfused. Assessmane and Plan: Post left hip hemiarthroplasty -Therapy, WBAT, hip precautions. -ASA 325 PO BID for DVT prophylaxis for 4 weeks post op. -Knee high MARY hose. -Pain controlled. No changes needed. -Orthopedically stable for discharge when placement made. -Follow up with me in the office two weeks from date of surgery. Objective Vital signs: Vital Signs Temp Pulse Resp BP Pulse Ox 06/01/16 06:42 98 F 79 16 136/71 98 06/01/16 04:52 98.2 F 82 14 135/67 99 05/31/16 23:54 98.4 F 88 15 137/67 94 L 05/31/16 19:35 99 F 83 14 134/62 93 L 05/31/16 14:21 97.4 F L 86 20 135/59 96 05/31/16 11:18 97.4 F L 74 20 128/76 97 Intake and Output 05/31/16 05/31/16 06/01/16 15:59 23:59 07:59 Intake Total 340 / 340 250 / 250 100 / 100 Balance 340 / 340 250 / 250 100 / 100 Intake: Oral 340 / 340 250 / 250 100 / 100 Other: Meal Lunch Percent of Meal Consumed 0% # Voids 1 1 # Urine Diapers 2 # Bowel Movement Diapers 1 Blood Glucose* 142 117 123 - Labs CBC & BMP: 06/01/16 04:45 05/30/16 03:49 Labs: Abnormal lab results RBC 3.48 M/mcL (3.82-4.97) L 05/30/16 03:49 Hgb 9.7 g/dL (11.5-15.4) L 06/01/16 04:45 Hct 30.6 % (35.3-44.9) L 06/01/16 04:45 MCH 27.3 pg (28.0-33.3) L 05/30/16 03:49 RDW 15.1 % (11.5-14.5) H 05/30/16 03:49 MPV 8.9 fL (9.4-12.4) L 05/30/16 03:49 APTT 23.3 Seconds (26.0-36.0) L 05/27/16 06:48 VBG pH 7.45 pH Units (7.32-7.42) H 05/27/16 06:48 VBG pCO2 33 mmHg (41-51) L 05/27/16 06:48 VBG pO2 156 mmHg (25-40) H 05/27/16 06:48 BUN/Creatinine Ratio 27 (6-26) H 05/30/16 03:49 Glucose 139 mg/dL (70-99) H 05/30/16 03:49 POC Glucose 127 (58-89) H 05/31/16 20:05 Hemoglobin A1c 7.0 % (-5.6) H 05/27/16 06:48 Calcium 7.9 mg/dL (8.6-10.8) L 05/30/16 03:49 Ionized Calcium 1.10 mmol/L (1.15-1.35) L 05/27/16 06:48 AST 37 Units/L (5-34) H 05/27/16 06:48 ALT 57 Units/L (0-55) H 05/27/16 06:48 C-Reactive Protein 143 mg/L (Less than 5) H 05/27/16 06:48 Albumin 2.3 g/dL (3.5-5.0) L 05/27/16 06:48 Globulin 4.1 g/dL (2.4-3.5) H 05/27/16 06:48 Albumin/Globulin Ratio 0.6 (1.1-2.2) L 05/27/16 06:48 Triglycerides 196 mg/dL (< 150) H 05/27/16 06:48 VLDL Cholesterol, Calc 39 mg/dL (< 31) H 05/27/16 06:48 HDL Cholesterol 37 mg/dL (40-59) L 05/27/16 06:48 TSH 9.712 mcIU/mL (0.350-4.840) H 05/27/16 06:48 Urine Clarity Turbid (Clear) A 05/27/16 01:40 Urine Protein 30 mg/dL (Neg-Trace) H 05/27/16 01:40 Urine Glucose (UA) 250 mg/dL (Normal) H 05/27/16 01:40 Urine Blood Small (Negative) H 05/27/16 01:40 Urine Bilirubin Small (Negative) H 05/27/16 01:40 Ur Leukocyte Esterase Large (Negative) H 05/27/16 01:40 Urine Microscopic RBC 5-15 per hpf (0-3) H 05/27/16 01:40 Urine Microscopic WBC TNTC per hpf (0-3) H 05/27/16 01:40 Ur Squamous Epith Cells Moderate per lpf (None-Few) H 05/27/16 01:40 Urine Bacteria Moderate per hpf (None-Few) H 05/27/16 01:40 - VTE Documentation of Mechanical Device: Venous foot pump, device Consult Discharge Plan - Plan Additional Instructions: DISCHARGE INSTRUCTIONS Dr. Greer Left Hip Hemiarthroplasty Wound Care -Keep wound / incision area clean and dry. -Change dressing daily with dry gauze and paper tape or medipore tape. -No baths or swimming until otherwise instructed. -After 14 days from surgery date, may begin to shower only if no drainage is present. No submerging the wound under standing water until cleared by your physician (no baths, hot tubs, swimming pools, etc). Sponge baths are the best way to perform personal hygiene while at the same time protecting the wound from moisture. -No scrubbing the wound. You may "pad dry" the wound, but do not rub, as this may open up he wound and pre-dispose to wound infection. -Do not apply lotions or creams to incision site, unless instructed otherwise. -Observe for redness, swelling, or drainage. Please call the clinic immediately if you have fevers, chills with warmth/redness surrounding wound site or if you notice pus drainage from the wound site. Activity -Consult physical therapy; Eval and treat post left hip hemiarthroplasty. -No heavy lifting objects greater than 10 pounds. -You may be weight-bear as tolerated on both of your lower extremities. -Posterior hip precautions for 6 weeks: No bending the hip past 90 degrees. Do not allow the leg to cross the midline of your body (adduction). No twisting motions. Ask your physical therapist to review these precautions with you. Reducing the Risk of Blood Clots -Aspirin 325 mg by mouth twice per day for 28 days total after surgery. -Wear knee high compression hose 23 hours per day. Discharge Pain Medications -You will be given a prescription for pain medication. Wean off as tolerated. Do not wait to take the pain medication until the pain is severe, as it will be difficult to "catch up" once this occurs. The pain medication usually reaches its full effect ~1 hour after ingesting. -Your prescribed pain medication may contain Tylenol. You must be careful not to exceed 4,000 mg (4 g) of Tylenol (or generic equivalent), from all sources, within a single 24-hour period. -Some common side effects of the narcotic pain medications (Percocet, Oxycodone , Vicodin, etc) include nausea and itching. Benadryl is a great over the counter medication that helps calm your stomach, decreases your anxiety levels, and minimizes the itching. You can easily purchase this at your local pharmacy as an [id number] medication. Please abide by the instructions as printed on t-he bottle. If your nausea persists, make sure to take small amounts of crackers or other radiologist physician foods. Follow-Up -Follow-up with Dr. Greer office in 2 weeks from the surgery date for a post- operative evaluation. -Call the office at [phone] to schedule or confirm your appointment. Referrals: Geovanna Larry MD [Partnered Physician] - 06/02/16 9:30 am Elvin Meza MD [Primary Care Provider] - 08/18/16 11:00 am
[2016-06-01] MEDS: clonazePAM 0.5 MG TABLET PO SCH ×4 (09:16→22:36)
[2016-06-01] MEDS: Aspirin 325 MG TABLET PO SCH ×2 (09:16→22:37)
[2016-06-01] MEDS: FLUoxetine 20 MG CAPSULE PO SCH (09:16)
[2016-06-01] MEDS: Insulin DETEMIR 100 UNIT/ML X5UNITS SQ SCH ×2 (09:18→22:37)
[2016-06-01] MEDS: Insulin LISPRO 300 UNITS/3 ML VIAL SQ SCH ×3 (09:18→17:47)
--- NOTE | 2016-06-01 10:18 | Discharge Summary ---
Date of Encounter: 06/01/16 Time of Encounter: 09:45 - Discharge Diagnosis (1) Hip fracture, left Priority: Primary Status: Acute Qualifiers: Encounter type: initial encounter Fracture type: closed Qualified Code(s) : S72.002A - Fracture of unspecified part of neck of left femur, initial encounter for closed fracture (2) Acute kidney injury Priority: Secondary Status: Resolved (3) Multiple falls Priority: Secondary Status: Acute (4) Chronic atrial fibrillation Priority: Secondary Status: Chronic (5) Dementia Priority: Secondary Status: Chronic Qualifiers: Dementia type: Alzheimer's disease Alzheimer's disease onset: late-onset Dementia behavioral disturbance: with behavioral disturbance Qualified Code(s) : G30.1 - Alzheimer's disease with late onset; F02.81 - Dementia in other diseases classified elsewhere with behavioral disturbance (6) Diabetes Priority: Secondary Status: Chronic Qualifiers: Diabetes mellitus type: type 2 Diabetes mellitus complication status: with unspecified complications Diabetes mellitus exterminator insulin use: without skilled nursing use Qualified Code(s): E11.8 - Type 2 diabetes mellitus with unspecified complications (7) Hypertension Priority: Secondary Status: Chronic Qualifiers: Hypertension type: essential hypertension Qualified Code(s): I10 - Essential (primary) hypertension (8) Hypothyroidism Priority: Secondary Status: Chronic Qualifiers: Hypothyroidism type: acquired Qualified Code(s): E03.9 - Hypothyroidism, unspecified (9) Anemia Priority: Secondary Status: Acute Qualifiers: Anemia type: other cause Other causes of anemia: other cause, not classified Qualified Code(s): D64.89 - Other specified anemias - Discharge Medications Prescriptions: Acetaminophen w/Cod 300-30 mg [Tylenol w/Codeine #3] 1 tab PO Q6H PRN #20 tablet PRN Reason: Pain Docusate [Colace] 100 mg PO BID PRN #60 capsule PRN Reason: Constipation HYDROcodone/Acet 5/325 mg [Roach 5-325 mg] 1 tab PO Q6H PRN #20 tablet PRN Reason: Pain Home Medications: Donepezil HCl [Donepezil HCl Odt] 10 mg PO HS 02/09/16 [History] Levothyroxine [Synthroid] 100 mcg PO DAILY 02/09/16 [History] Lisinopril [Zestril] 10 mg PO BID 02/09/16 [History] Aspirin 81 mg PO DAILY tab.chew 02/13/16 [Rx] Simvastatin [Zocor] 40 mg PO HS tablet 02/13/16 [Rx] ClonazePAM [Klonopin] 0.5 mg PO QID 05/26/16 [History] Diltiazem HCl [Cartia Xt] 180 mg PO HS 05/26/16 [History] FLUoxetine HCl [Prozac] 20 mg PO DAILY 05/26/16 [History] Glimepiride 1 mg PO DAILY 05/26/16 [History] Hydroxyzine HCl 25 mg PO QID 05/26/16 [History] Acetaminophen w/Cod 300-30 mg [Tylenol w/Codeine #3] 1 tab PO Q6H PRN #20 tablet 06/01/16 [Rx] Docusate [Colace] 100 mg PO BID PRN #60 capsule 06/01/16 [Rx] HYDROcodone/Acet 5/325 mg [Roach 5-325 mg] 1 tab PO Q6H PRN #20 tablet 06/01/16 [Rx] Allergies/Adverse Reactions: Allergies No Known Allergies Allergy (Verified 05/26/16 20:37) Date of admission: 05/26/16 23:20 Primary care physician: Kyle Garner Consults: 05/26/16 23:48 Consult to Occupational Therapy [CONS] Routine Comment: Evaluate, develop and implement POC Consult to Physical Therapy [CONS] Routine Comment: Evaluate, develop and implement POC 05/27/16 08:00 Consult to Orthopedic Surgery [CONS] Routine Consulting Provider: Subhash Greer Reason for Consult: Posttraumatic, subcapital, left femoral neck fracture. Please evaluate and advise. Time Notified: 23:00 Call Completed: Yes 05/27/16 18:03 Consult to Back Tender [CONS] Routine Reason for SW Consult: D/C planning 05/27/16 19:29 Consult to Occupational Therapy [CONS] Routine Comment: Evaluate, develop and implement POC Consult to Physical Therapy [CONS] Routine Comment: Evaluate, develop and implement POC Consult to Back Tender [CONS] Routine Reason for SW Consult: post op joint replacement - Patient Status Disposition: Transfer SNF Condition: Good Functional capacity at discharge: uses cane/walker Overall status at discharge: patient is progressing back to baseline - Discharge Instructions Instructions: Anemia (GEN) Follow Up With: Geovanna Larry MD [Partnered Physician] - 06/02/16 9:30 am Elvin Meza MD [Primary Care Provider] - 08/18/16 11:00 am Subhash Greer MD [Partnered Physician] - (In 1-2 weeks) Additional Instructions: DISCHARGE INSTRUCTIONS Dr. Greer Left Hip Hemiarthroplasty Wound Care -Keep wound / incision area clean and dry. -Change dressing daily with dry gauze and paper tape or medipore tape. -No baths or swimming until otherwise instructed. -After 14 days from surgery date, may begin to shower only if no drainage is present. No submerging the wound under standing water until cleared by your physician (no baths, hot tubs, swimming pools, etc). Sponge baths are the best way to perform personal hygiene while at the same time protecting the wound from moisture. -No scrubbing the wound. You may "pad dry" the wound, but do not rub, as this may open up he wound and pre-dispose to wound infection. -Do not apply lotions or creams to incision site, unless instructed otherwise. -Observe for redness, swelling, or drainage. Please call the clinic immediately if you have fevers, chills with warmth/redness surrounding wound site or if you notice pus drainage from the wound site. Activity -Consult physical therapy; Eval and treat post left hip hemiarthroplasty. -No heavy lifting objects greater than 10 pounds. -You may be weight-bear as tolerated on both of your lower extremities. -Posterior hip precautions for 6 weeks: No bending the hip past 90 degrees. Do not allow the leg to cross the midline of your body (adduction). No twisting motions. Ask your physical therapist to review these precautions with you. Reducing the Risk of Blood Clots -Aspirin 325 mg by mouth twice per day for 28 days total after surgery. -Wear knee high compression hose 23 hours per day. Discharge Pain Medications -You will be given a prescription for pain medication. Wean off as tolerated. Do not wait to take the pain medication until the pain is severe, as it will be difficult to "catch up" once this occurs. The pain medication usually reaches its full effect ~1 hour after ingesting. -Your prescribed pain medication may contain Tylenol. You must be careful not to exceed 4,000 mg (4 g) of Tylenol (or generic equivalent), from all sources, within a single 24-hour period. -Some common side effects of the narcotic pain medications (Percocet, Oxycodone , Vicodin, etc) include nausea and itching. Benadryl is a great over the counter medication that helps calm your stomach, decreases your anxiety levels, and minimizes the itching. You can easily purchase this at your local pharmacy as an [id number] medication. Please abide by the instructions as printed on t-he bottle. If your nausea persists, make sure to take small amounts of crackers or other appointment manager foods. Follow-Up -Follow-up with Dr. Greer office in 2 weeks from the surgery date for a post- operative evaluation. -Call the office at [phone] to schedule or confirm your appointment. - Diet and Activity Activity: as per physical therapy Diet: diabetic diet, low fat, low cholesterol, low salt diet Hospital course: Ms. Hester is a 85 year old female with history of atrial fibrillation, diabetes mellitus type 2, hypertension who was admitted here after a fall resulting in left hip fracture. Patient underwent left hip hemiarthroplasty and has been recovering well since then. At presentation she had mild acute kidney injury and this has resolved. Her pain has been well controlled. Patient was evaluated for physical therapy and recommended placement to nursing home facility. Orthopedics has cleared the patient for discharge once she has a bed available. The patient will be on anticoagulation with aspirin 325 mg twice daily for 4 weeks. She will follow-up with orthopedics after discharge for further management. - Time Spent with Patient Total time spent providing and/or coordinating discharge services: Greater than 30 minutes (40 min) - Constitutional Vitals: Temp Pulse Resp BP Pulse Ox 98 F 79 16 136/71 98 06/01/16 06:42 06/01/16 06:42 06/01/16 06:42 06/01/16 06:42 06/01/16 06:42 General appearance: Present: cooperative, pleasant, no acute distress, obese Exam: Somnolent currently. - Respiratory Respiratory exam: Present: CTAB. Absent: accessory muscle use, rales, rhonchi, wheezes - Cardiovascular Cardiovascular exam: Present: RRR, +S1, +S2. Absent: diastolic murmur, gallop, rubs, systolic murmur - GI/Abdominal GI/Abdominal exam: Present: normal bowel sounds, soft, no peritoneal signs. Absent: distended, tenderness - Extremities Exam Extremities exam: Present: warm, radial pulses palpable and symetrical. Absent : calf tenderness, cyanotic, full ROM, pedal edema Additional comments: Left thigh surgical site currently bandaged. Has good movement at her toes and ankle. - Neurological Exam Neurological exam: Present: no focal deficits. Absent: facial droop Additional comments: Somnolent. - VTE Documentation of Mechanical Device: Venous foot pump, device - Attending Attestation This document has been at least partially created by [employer] recognition technology by Dr. Scott. Errors in grammar, wording or other phrases may exist. If errors are found after the documentation is signed, they will be addressed individually in the addendum section of this document when appropriate.
--- NOTE | 2016-06-01 10:41 | Physician Discharge Referral ---
ExtendedCare Referral Info Transfer To: F Provider in Charge after Transfer: PCP Institutional Level of Care: Skilled - Diagnosis (1) Hip fracture, left Priority: Primary Status: Acute (2) Acute kidney injury Priority: Secondary Status: Resolved (3) Multiple falls Priority: Secondary Status: Acute (4) Chronic atrial fibrillation Priority: Secondary Status: Chronic (5) Dementia Priority: Secondary Status: Chronic (6) Diabetes Priority: Secondary Status: Chronic (7) Hypertension Priority: Secondary Status: Chronic (8) Hypothyroidism Priority: Secondary Status: Chronic (9) Anemia Priority: Secondary Status: Acute - Transfer Medications Prescriptions: Acetaminophen w/Cod 300-30 mg [Tylenol w/Codeine #3] 1 tab PO Q6H PRN #20 tablet PRN Reason: Pain Docusate [Colace] 100 mg PO BID PRN #60 capsule PRN Reason: Constipation HYDROcodone/Acet 5/325 mg [[place] 5-325 mg] 1 tab PO Q6H PRN #20 tablet PRN Reason: Pain Home Medications: Donepezil HCl [Donepezil HCl Odt] 10 mg PO HS 02/09/16 [History] Levothyroxine [Synthroid] 100 mcg PO DAILY 02/09/16 [History] Lisinopril [Zestril] 10 mg PO BID 02/09/16 [History] Aspirin 81 mg PO DAILY tab.chew 02/13/16 [Rx] Simvastatin [Zocor] 40 mg PO HS tablet 02/13/16 [Rx] ClonazePAM [Klonopin] 0.5 mg PO QID 05/26/16 [History] Diltiazem HCl [Cartia Xt] 180 mg PO HS 05/26/16 [History] FLUoxetine HCl [Prozac] 20 mg PO DAILY 05/26/16 [History] Glimepiride 1 mg PO DAILY 05/26/16 [History] Hydroxyzine HCl 25 mg PO QID 05/26/16 [History] Acetaminophen w/Cod 300-30 mg [Tylenol w/Codeine #3] 1 tab PO Q6H PRN #20 tablet 06/01/16 [Rx] Docusate [Colace] 100 mg PO BID PRN #60 capsule 06/01/16 [Rx] HYDROcodone/Acet 5/325 mg [[place] 5-325 mg] 1 tab PO Q6H PRN #20 tablet 06/01/16 [Rx] Allergies/Adverse Reactions: Allergies No Known Allergies Allergy (Verified 05/26/16 20:37) - Respiratory Orders Smoking Cessation: Smoking cessation has been advised. For more information, call the [place] Tobacco Quit Line at 9-605-BGJX-NOW. - Ancillary Orders May consult with Dentist, Fermenter Wine, Archeology Professor PRN - Advance Directives Code Status: DNR-Arrest (DNR comfort care arrest) - Mobility Orders Ambulate (Per physical therapy) - Rehabiliation Orders Rehab Potential: Fair Rehab Orders: Evaluation for Physical Therapy, Evaluation for Occupational Therapy - Treatments Skin tear care topically daily PRN per policy List/Other: Wound Care -Keep wound / incision area clean and dry. -Change dressing daily with dry gauze and paper tape or medipore tape. -No baths or swimming until otherwise instructed. -After 14 days from surgery date, may begin to shower only if no drainage is present. No submerging the wound under standing water until cleared by your physician (no baths, hot tubs, swimming pools, etc). Sponge baths are the best way to perform personal hygiene while at the same time protecting the wound from moisture. -No scrubbing the wound. You may "pad dry" the wound, but do not rub, as this may open up he wound and pre-dispose to wound infection. -Do not apply lotions or creams to incision site, unless instructed otherwise. -Observe for redness, swelling, or drainage. Please call the clinic immediately if you have fevers, chills with warmth/redness surrounding wound site or if you notice pus drainage from the wound site. - Diet Orders Cardiac (And diabetic) CERTIFICATION: I certify that the transfer of the above named patient to an Extended Care Facility is necessary for the continuing treatment of the diagnosis listed. The above information is true and accurate reflection of patient's current condition. Confidential - Redisclosure prohibited without a patient's written consent.
[2016-06-01] MEDS: Diltiazem CD (24hr) 180 MG CAPSULE PO SCH (22:36)
[2016-06-02] MEDS: Insulin LISPRO 300 UNITS/3 ML VIAL SQ SCH ×3 (07:38→16:27)
[2016-06-02] MEDS: Insulin DETEMIR 100 UNIT/ML X5UNITS SQ SCH ×2 (08:53→20:48)
[2016-06-02] MEDS: Aspirin 325 MG TABLET PO SCH ×2 (08:53→20:47)
[2016-06-02] MEDS: FLUoxetine 20 MG CAPSULE PO SCH (08:53)
[2016-06-02] MEDS: clonazePAM 0.5 MG TABLET PO SCH ×4 (08:53→20:47)
[2016-06-02] MEDS: Acetaminophen 325 MG TABLET PO PRN (08:54)
--- NOTE | 2016-06-02 17:57 | Internal Med Progress Note ---
Date of Encounter: 06/02/16 Time of Encounter: 10:00 - Assessment and plan (1) Hip fracture, left Current Visit: Yes Status: Acute Assessment and plan: Continue PTOT. Awaiting placement to skilled rehabilitation. Qualifiers: Encounter type: initial encounter Fracture type: closed Qualified Code(s) : S72.002A - Fracture of unspecified part of neck of left femur, initial encounter for closed fracture (2) Anemia Current Visit: Yes Status: Acute Assessment and plan: Hemoglobin levels remained stable. Qualifiers: Anemia type: other cause Other causes of anemia: other cause, not classified Qualified Code(s): D64.89 - Other specified anemias (3) Multiple falls Current Visit: Yes Status: Acute Assessment and plan: Placement to halfway facility for rehabilitation (4) Chronic atrial fibrillation Current Visit: Yes Status: Chronic Assessment and plan: Rate controlled. Currently on anticoagulation with aspirin twice daily. (5) Dementia Current Visit: Yes Status: Chronic Assessment and plan: Chronic. Not on any medications. At risk for delirium. Will monitor closely. Qualifiers: Dementia type: Alzheimer's disease Alzheimer's disease onset: late-onset Dementia behavioral disturbance: with behavioral disturbance Qualified Code(s) : G30.1 - Alzheimer's disease with late onset; F02.81 - Dementia in other diseases classified elsewhere with behavioral disturbance (6) Diabetes Current Visit: Yes Status: Chronic Assessment and plan: Improving blood sugars. Continue current insulin regimen Qualifiers: Diabetes mellitus type: type 2 Diabetes mellitus complication status: with unspecified complications Diabetes mellitus termite control representative insulin use: without termite control representative use Qualified Code(s): E11.8 - Type 2 diabetes mellitus with unspecified complications (7) Hypertension Current Visit: Yes Status: Chronic Assessment and plan: Well-controlled Qualifiers: Hypertension type: essential hypertension Qualified Code(s): I10 - Essential (primary) hypertension (8) Hypothyroidism Current Visit: Yes Status: Chronic Assessment and plan: On levothyroxin Qualifiers: Hypothyroidism type: acquired Qualified Code(s): E03.9 - Hypothyroidism, unspecified (9) Acute kidney injury Current Visit: Yes Status: Resolved Assessment and plan: Improved. We will continue to follow renal function. On lactated Ringer's infusion. Will continue. (10) DVT prophylaxis Current Visit: No Status: Acute Assessment and plan: Aspirin 325 mg by mouth twice a day - Time Spent With Patient 25 - 35 minutes - Subjective Interval history: Patient is a 85-year-old female admitted for left femoral neck fracture. His past medical history is significant for A. fib, dementia, diabetes, hyperlipidemia, hypertension, osteoporosis, thyroid disease. Patient had a surgery on 05/27/16. Face is supposed to discharge to [facility] but has placement issue. Social work is working on placement. I saw and examined the patient today. She is sleeping when I saw her, can be wake up but does not want to talk. In no acute distress. Vital signs stable. We will continue current treatment and physical therapy. Waiting for placement. - Constitutional Vitals: Temp Pulse Resp BP Pulse Ox 98.0 F 80 20 136/88 96 06/02/16 15:03 06/02/16 15:03 06/02/16 15:03 06/02/16 15:03 06/02/16 16:42 General appearance: Present: cooperative, pleasant, no acute distress, obese - Head Head exam: Present: atraumatic, normocephalic - Eye Eye exam: Present: PERRL, conjuntiva pink, sclera anicteric Pupils: Present: PERRL - Neck Neck exam general surgery: Present: supple, trachea midline. Absent: lymphadenopathy - Respiratory Respiratory exam: Present: CTAB. Absent: accessory muscle use, rales, rhonchi, wheezes - Cardiovascular Cardiovascular exam: Present: RRR, +S1, +S2. Absent: diastolic murmur, gallop, rubs, systolic murmur - GI/Abdominal GI/Abdominal exam: Present: normal bowel sounds, soft, no peritoneal signs. Absent: distended, tenderness - Extremities Exam Extremities exam: Present: warm, radial pulses palpable and symetrical. Absent : calf tenderness, cyanotic, pedal edema - Neurological Exam Neurological exam: Present: CN II-XII intact, oriented X3, no focal deficits. Absent: pronater drift, facial droop, speech deficit - Skin Skin exam: Present: dry, intact Internal Medicine: Result - Labs CBC & Chem 7: 06/01/16 04:45 05/30/16 03:49 - ABG Interpretation ABG results: PT/INR, D-dimer PT 11.7 Seconds (9.4-12.1) 05/27/16 06:48 - VTE Documentation of Mechanical Device: Intermittent pneumatic compression device Consult Discharge Plan - Plan Instructions: Anemia (GEN) Additional Instructions: DISCHARGE INSTRUCTIONS Dr. Greer Left Hip Hemiarthroplasty Wound Care -Keep wound / incision area clean and dry. -Change dressing daily with dry gauze and paper tape or medipore tape. -No baths or swimming until otherwise instructed. -After 14 days from surgery date, may begin to shower only if no drainage is present. No submerging the wound under standing water until cleared by your physician (no baths, hot tubs, swimming pools, etc). Sponge baths are the best way to perform personal hygiene while at the same time protecting the wound from moisture. -No scrubbing the wound. You may "pad dry" the wound, but do not rub, as this may open up he wound and pre-dispose to wound infection. -Do not apply lotions or creams to incision site, unless instructed otherwise. -Observe for redness, swelling, or drainage. Please call the clinic immediately if you have fevers, chills with warmth/redness surrounding wound site or if you notice pus drainage from the wound site. Activity -Consult physical therapy; Eval and treat post left hip hemiarthroplasty. -No heavy lifting objects greater than 10 pounds. -You may be weight-bear as tolerated on both of your lower extremities. -Posterior hip precautions for 6 weeks: No bending the hip past 90 degrees. Do not allow the leg to cross the midline of your body (adduction). No twisting motions. Ask your physical therapist to review these precautions with you. Reducing the Risk of Blood Clots -Aspirin 325 mg by mouth twice per day for 28 days total after surgery. -Wear knee high compression hose 23 hours per day. Discharge Pain Medications -You will be given a prescription for pain medication. Wean off as tolerated. Do not wait to take the pain medication until the pain is severe, as it will be difficult to "catch up" once this occurs. The pain medication usually reaches its full effect ~1 hour after ingesting. -Your prescribed pain medication may contain Tylenol. You must be careful not to exceed 4,000 mg (4 g) of Tylenol (or generic equivalent), from all sources, within a single 24-hour period. -Some common side effects of the narcotic pain medications (Percocet, Oxycodone , Vicodin, etc) include nausea and itching. Benadryl is a great over the counter medication that helps calm your stomach, decreases your anxiety levels, and minimizes the itching. You can easily purchase this at your local pharmacy as an hqtq-yfj-iinsswr medication. Please abide by the instructions as printed on t-he bottle. If your nausea persists, make sure to take small amounts of crackers or other ship loader foods. Follow-Up -Follow-up with Dr. Greer office in 2 weeks from the surgery date for a post- operative evaluation. -Call the office at [phone] to schedule or confirm your appointment. Referrals: Geovanna Larry MD [Partnered Physician] - 06/02/16 9:30 am Elvin Meza MD [Primary Care Provider] - 08/18/16 11:00 am Subhash Greer MD [Partnered Physician] - (In 1-2 weeks) Prescriptions: Acetaminophen w/Cod 300-30 mg [Tylenol w/Codeine #3] 1 tab PO Q6H PRN #20 tablet PRN Reason: Pain Docusate [Colace] 100 mg PO BID PRN #60 capsule PRN Reason: Constipation HYDROcodone/Acet 5/325 mg [[place] 5-325 mg] 1 tab PO Q6H PRN #20 tablet PRN Reason: Pain
[2016-06-02] MEDS: Diltiazem CD (24hr) 180 MG CAPSULE PO SCH (20:47)
[2016-06-03] MEDS: Insulin LISPRO 300 UNITS/3 ML VIAL SQ SCH ×3 (09:53→17:21)
[2016-06-03] MEDS: clonazePAM 0.5 MG TABLET PO SCH ×3 (09:54→17:21)
[2016-06-03] MEDS: FLUoxetine 20 MG CAPSULE PO SCH (09:57)
[2016-06-03] MEDS: Aspirin 325 MG TABLET PO SCH ×2 (09:57→20:40)
[2016-06-03] MEDS: Insulin DETEMIR 100 UNIT/ML X5UNITS SQ SCH ×2 (10:00→20:43)
[2016-06-03 15:04] VITALS: BP 128/69
--- NOTE | 2016-06-03 16:44 | Internal Med Progress Note ---
Date of Encounter: 06/03/16 Time of Encounter: 10:00 - Assessment and plan (1) Hip fracture, left Current Visit: Yes Status: Acute Assessment and plan: Continue PTOT. Awaiting placement to skilled rehabilitation. Qualifiers: Encounter type: initial encounter Fracture type: closed Qualified Code(s) : S72.002A - Fracture of unspecified part of neck of left femur, initial encounter for closed fracture (2) Anemia Current Visit: Yes Status: Acute Assessment and plan: Hemoglobin levels remained stable. Qualifiers: Anemia type: other cause Other causes of anemia: other cause, not classified Qualified Code(s): D64.89 - Other specified anemias (3) Multiple falls Current Visit: Yes Status: Acute Assessment and plan: Placement to residential facility for rehabilitation (4) Chronic atrial fibrillation Current Visit: Yes Status: Chronic Assessment and plan: Rate controlled. Currently on anticoagulation with aspirin twice daily. (5) Dementia Current Visit: Yes Status: Chronic Assessment and plan: Chronic. On donepezil. At risk for delirium. Will monitor closely. Qualifiers: Dementia type: Alzheimer's disease Alzheimer's disease onset: late-onset Dementia behavioral disturbance: with behavioral disturbance Qualified Code(s) : G30.1 - Alzheimer's disease with late onset; F02.81 - Dementia in other diseases classified elsewhere with behavioral disturbance (6) Diabetes Current Visit: Yes Status: Chronic Assessment and plan: Improving blood sugars. Continue current insulin regimen Qualifiers: Diabetes mellitus type: type 2 Diabetes mellitus complication status: with unspecified complications Diabetes mellitus jail insulin use: without jail use Qualified Code(s): E11.8 - Type 2 diabetes mellitus with unspecified complications (7) Hypertension Current Visit: Yes Status: Chronic Assessment and plan: Well-controlled Qualifiers: Hypertension type: essential hypertension Qualified Code(s): I10 - Essential (primary) hypertension (8) Hypothyroidism Current Visit: Yes Status: Chronic Assessment and plan: On levothyroxin Qualifiers: Hypothyroidism type: acquired Qualified Code(s): E03.9 - Hypothyroidism, unspecified (9) Acute kidney injury Current Visit: Yes Status: Resolved Assessment and plan: Improved. We will continue to follow renal function. On lactated Ringer's infusion. Will continue. 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 His past medical history is significant for A. fib, dementia, diabetes, hyperlipidemia, hypertension, osteoporosis, thyroid disease. Patient had a surgery on 05/27/16. She is supposed to discharge to [facility] but has placement issue. Social work is working on placement. I saw and examined the patient today. She is sleeping when I saw her in AM but wake up in PM, can tell her name and . In no acute distress. Vital signs stable. We will continue current treatment and physical therapy. Waiting for placement. Will gradually taper down her klonopin because she is always sleepy. - Constitutional Vitals: Temp Pulse Resp BP Pulse Ox 98.0 F 82 14 128/69 93 L 06/03/16 15:01 06/03/16 15:01 06/03/16 15:01 06/03/16 15:01 06/03/16 15:01 General appearance: Present: cooperative, pleasant, no acute distress, obese - Head Head exam: Present: atraumatic, normocephalic - Eye Eye exam: Present: PERRL, conjuntiva pink, sclera anicteric Pupils: Present: PERRL - Neck Neck exam general surgery: Present: supple, trachea midline. Absent: lymphadenopathy - Respiratory Respiratory exam: Present: CTAB. Absent: accessory muscle use, rales, rhonchi, wheezes - Cardiovascular Cardiovascular exam: Present: RRR, +S1, +S2. Absent: diastolic murmur, gallop, rubs, systolic murmur - GI/Abdominal GI/Abdominal exam: Present: normal bowel sounds, soft, no peritoneal signs. Absent: distended, tenderness - Extremities Exam Extremities exam: Present: warm, radial pulses palpable and symetrical. Absent : calf tenderness, cyanotic, pedal edema - Neurological Exam Neurological exam: Present: CN II-XII intact, motor sensory deficit (Left-sided weakness due to old CVA), oriented X3, no focal deficits. Absent: pronater drift, facial droop, speech deficit - Skin Skin exam: Present: dry, intact Internal Medicine: Result - Labs CBC & Chem 7: 06/01/16 04:45 05/30/16 03:49 - ABG Interpretation ABG results: PT/INR, D-dimer PT 11.7 Seconds (9.4-12.1) 05/27/16 06:48 - VTE Documentation of Mechanical Device: Intermittent pneumatic compression device Consult Discharge Plan - Plan Instructions: Anemia (GEN) Additional Instructions: DISCHARGE INSTRUCTIONS Dr. Greer Left Hip Hemiarthroplasty Wound Care -Keep wound / incision area clean and dry. -Change dressing daily with dry gauze and paper tape or medipore tape. -No baths or swimming until otherwise instructed. -After 14 days from surgery date, may begin to shower only if no drainage is present. No submerging the wound under standing water until cleared by your physician (no baths, hot tubs, swimming pools, etc). Sponge baths are the best way to perform personal hygiene while at the same time protecting the wound from moisture. -No scrubbing the wound. You may "pad dry" the wound, but do not rub, as this may open up he wound and pre-dispose to wound infection. -Do not apply lotions or creams to incision site, unless instructed otherwise. -Observe for redness, swelling, or drainage. Please call the clinic immediately if you have fevers, chills with warmth/redness surrounding wound site or if you notice pus drainage from the wound site. Activity -Consult physical therapy; Eval and treat post left hip hemiarthroplasty. -No heavy lifting objects greater than 10 pounds. -You may be weight-bear as tolerated on both of your lower extremities. -Posterior hip precautions for 6 weeks: No bending the hip past 90 degrees. Do not allow the leg to cross the midline of your body (adduction). No twisting motions. Ask your physical therapist to review these precautions with you. Reducing the Risk of Blood Clots -Aspirin 325 mg by mouth twice per day for 28 days total after surgery. -Wear knee high compression hose 23 hours per day. Discharge Pain Medications -You will be given a prescription for pain medication. Wean off as tolerated. Do not wait to take the pain medication until the pain is severe, as it will be difficult to "catch up" once this occurs. The pain medication usually reaches its full effect ~1 hour after ingesting. -Your prescribed pain medication may contain Tylenol. You must be careful not to exceed 4,000 mg (4 g) of Tylenol (or generic equivalent), from all sources, within a single 24-hour period. -Some common side effects of the narcotic pain medications (Percocet, Oxycodone , Vicodin, etc) include nausea and itching. Benadryl is a great over the counter medication that helps calm your stomach, decreases your anxiety levels, and minimizes the itching. You can easily purchase this at your local pharmacy as an [id number]-[id number] medication. Please abide by the instructions as printed on t-he bottle. If your nausea persists, make sure to take small amounts of crackers or other metal can inspector foods. Follow-Up -Follow-up with Dr. Greer office in 2 weeks from the surgery date for a post- operative evaluation. -Call the office at [phone] to schedule or confirm your appointment. Referrals: Geovanna Larry MD [Partnered Physician] - 06/02/16 9:30 am Elvin Meza MD [Primary Care Provider] - 08/18/16 11:00 am Subhash Greer MD [Partnered Physician] - (In 1-2 weeks) Prescriptions: Acetaminophen w/Cod 300-30 mg [Tylenol w/Codeine #3] 1 tab PO Q6H PRN #20 tablet PRN Reason: Pain Docusate [Colace] 100 mg PO BID PRN #60 capsule PRN Reason: Constipation HYDROcodone/Acet 5/325 mg [[place] 5-325 mg] 1 tab PO Q6H PRN #20 tablet PRN Reason: Pain
[2016-06-03] MEDS: Diltiazem CD (24hr) 180 MG CAPSULE PO SCH (20:40)
[2016-06-03] MEDS ORDERED: clonazePAM 0.5 MG TABLET PO SCH (21:00)
== END 2016-06-03 22:00 | DRG 469 ==
LOC: EMEROO 19:45 → SUATTDRO 23:20 → 3NENU 23:20
PROVIDERS: ADMIT Internal Medicine; ATTEND Internal Medicine

== ENCOUNTER 2017-06-19 19:22 | Observation (INO) ==
--- NOTE | 2017-06-19 19:35 | Emergency Department Note ---
Disposition Clinical Impression: Encounter for dying care Respiratory failure Qualifiers: Chronicity: acute Respiratory failure complication: hypoxia Qualified Code(s): J96.01 - Acute respiratory failure with hypoxia Disposition: Admitted As Inpatient Condition: Critical Time of Disposition: 20:45 Altered Mental Status HPI - General Chief Complaint: ED Altered Mental Status Stated Complaint: AMS Time Seen by Provider: 06/19/17 19:25 Source: patient Mode of arrival: private vehicle Limitations: altered mental status Nursing Notes Reviewed: Yes Vital Signs Reviewed: Yes - History of Present Illness HPI Narrative: Patient presents to emergency department with her niece who is her POA and caregiver. She is concerned she is actively dying. Patient was revealed slightly admitted in the hospice but has not had her first visit. 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 She has had decreased responsiveness and is not eating. Difficulty breathing tonight so she brings her for evaluation. She is also had a worsening wound on her buttock for several days. - Related Data Home Medications Medication Instructions Recorded Confirmed Donepezil HCl [Donepezil HCl Odt] 10 mg PO HS 02/09/16 08/14/16 Levothyroxine [Synthroid] 100 mcg PO DAILY 02/09/16 08/14/16 Lisinopril [Zestril] 10 mg PO BID 02/09/16 08/14/16 Diltiazem HCl [Cartia Xt] 180 mg PO DAILY 05/26/16 08/14/16 Glimepiride 1 mg PO DAILY 05/26/16 08/14/16 clonazePAM [Klonopin] 0.5 mg PO QID 05/26/16 08/14/16 Aspirin 81 mg PO HS 08/14/16 08/14/16 HYDROcodone/Acet 5/325 mg [[place] 1 tab PO Q6H PRN 08/14/16 08/14/16 5-325 mg] Tramadol HCl [Ultram] 50 mg PO QID PRN 08/14/16 08/14/16 Allergies Allergy/AdvReac Type Severity Reaction Status Date / Time No Known Allergies Allergy Verified 01/10/17 10:55 All systems ED: reviewed and negative except as stated. Past Medical History - Past Medical History Attestation: Yes The following information was validated with the patient. Source: obtained from family Medical history: Reports: arthritis, atrial fibrillation, dementia, diabetes, hyperlipidemia, hypertension, osteoporosis, thyroid disease, other Surgical history: Reports: hip replacement, other Psychiatric history: Reports: anxiety, depression, other - Social History Smoking Status: Former smoker Smokeless Tobacco Status: No Alcohol use: Reports: none Drug use: Reports: none Physical Exam Patient and cachectic. Shallow, rapid respirations. Decreased air exchange in her lungs. - General Limitations: no limitations General appearance: lethargic, obtunded - Head Head exam: atraumatic - Eye Eye exam: Present: normal appearance - ENT ENT exam: mucous membranes dry - Neck Neck exam: Present: normal inspection - Respiratory Respiratory exam: Present: respiratory distress, accessory muscle use, other ( Diminished breath sounds) - Cardiovascular Cardiovascular exam: Present: normal rhythm, tachycardia - Abdominal Exam Abdominal exam: Present: soft - Neurological Exam Neurological exam: Present: other (Unresponsive) - Psychiatric Psychiatric exam: Present: other (Unresponsive) - Skin Skin exam: Present: warm, dry Course - Reevaluation(s) Reevaluation #1: Niece at bedside. She is aware that she is actively dying. Confirm that she does not want any CPR. She does not want any intubations. She is to be comfort care only and Comfortable. She feels she is comfortable at this time. X-rays ordered. Labs ordered. We will monitor. DNR form signed on chart. Time: 19:34 - Consultations Consultation #1: Dr Inman accepts for admission Time: 20:00 Vital Signs Temperature 99 F 06/19/17 19:35 Pulse Rate 117 06/19/17 19:35 Respiratory Rate 32 06/19/17 19:35 Blood Pressure 85/28 06/19/17 19:35 O2 Sat by Pulse Oximetry 96 06/19/17 19:35 Temperature 98.4 F 06/19/17 22:03 Pulse Rate 105 06/19/17 22:03 Respiratory Rate 18 06/19/17 22:03 Blood Pressure 50/30 06/19/17 22:03 O2 Sat by Pulse Oximetry 88 06/19/17 22:03 TPA Checklist - LKW: 3-4.5 hrs Add. Warnings/Precautions Patient/family understanding: The patient/family members have been counseled and understood the risk, benefit , and alternatives of treatment. Critical Care Time Critical Care Time: No
[2017-06-19] MEDS ORDERED: Naloxone 0.4 MG/ML INJ IVP PRN (21:56)
[2017-06-19] MEDS ORDERED: *HR* LORazepam 2 MG/ML VIAL IVP PRN (21:56)
[2017-06-19] MEDS ORDERED: *HR* Morphine 2 MG/ML SYRINGE IVP PRN (21:56)
--- NOTE | 2017-06-19 22:11 | Internal Med History&Physical ---
Date of Encounter: 06/19/17 Time of Encounter: 21:00 Assessment and Plan (1) Failure to thrive in adult Current visit: Yes Status: Acute Patient with progressive Alzheimer's dementia presenting with altered mental status with decreased responsiveness. Per her niece and POA, will place patient on comfort care and consult palliative care for transition to hospice. Comfort care orders initiated. (2) Altered mental status Current visit: Yes Status: Acute Due to progressive Alzheimer's dementia Qualifiers: Altered mental status type: somnolence Qualified Code(s): R40.0 - Somnolence (3) Dementia Current visit: Yes Status: Chronic Poor overall prognosis. CODE STATUS is DNR comfort care. Qualifiers: Dementia type: Alzheimer's disease Alzheimer's disease onset: late-onset Dementia behavioral disturbance: with behavioral disturbance Qualified Code(s) : G30.1 - Alzheimer's disease with late onset; F02.81 - Dementia in other diseases classified elsewhere with behavioral disturbance Internal Medicine - H&P: HPI Chief complaint: Failure to thrive, AMS Admitted From: Emergency Dept Plans for Post Hospital Care: Hospice - Medical Facility History of present illness: Ms. Hester is a 86 year old female patient with a history of progressive Alzheimer's dementia, atrial fibrillation, diabetes, hypertension and hypothyroidism was brought to the ER by her family as she has been increasingly declining with regards to her activities of daily living and has been increasingly bedbound at home. This has been going on for the past month but has gotten much worse today. Patient currently is very somnolent and not responding to commands. History has been obtained through the patient's niece who is her primary caregiver and POA. She reports that the patient is DNR comfort care and they were considering hospice at home and wishes that the patient be transitioned to hospice care. Past Med Surg Social Fam HX - Past Medical History Medical history: arthritis, atrial fibrillation, dementia, diabetes, hyperlipidemia, hypertension, osteoporosis, thyroid disease, other Psychiatric history: anxiety, depression, other - Past Surgical History Surgical History: hip replacement, other - Social History Smoking Status: Former smoker Smokeless Tobacco Status: No Alcohol use: none Drug use: none - Family History Sister Twin of Family Member: Yes, Fraternal Living Status: Hx Family Cardiac Disorders: No Hx Family Respiratory Disorders: Yes Hx Family Cancer: No Hx Family GI Disorders: No Hx Family Endocrine Disorder: No Hx Family Neuromuscular Disorders: No Hx Family Neurologic Disorders: No Hx Family HEENT Disorders: No Hx Family Autoimmune Disorders: No Internal Medicine - H&P: Meds Donepezil HCl [Donepezil HCl Odt] 10 mg PO HS 02/09/16 [History] Levothyroxine [Synthroid] 100 mcg PO DAILY 02/09/16 [History] Lisinopril [Zestril] 10 mg PO BID 02/09/16 [History] Diltiazem HCl [Cartia Xt] 180 mg PO DAILY 05/26/16 [History] Glimepiride 1 mg PO DAILY 05/26/16 [History] clonazePAM [Klonopin] 0.5 mg PO QID 05/26/16 [History] Aspirin 81 mg PO HS 08/14/16 [History] HYDROcodone/Acet 5/325 mg [Jenera 5-325 mg] 1 tab PO Q6H PRN 08/14/16 [History] Tramadol HCl [Ultram] 50 mg PO QID PRN 08/14/16 [History] 3 Allergy/AdvReac Type Severity Reaction Status Date / Time No Known Allergies Allergy Verified 01/10/17 10:55 ROS unobtainable: due to mental status All Systems PM: A 10-system review of systems was performed and is negative for pertinent findings except as documented above in the HPI. - Psychiatric Psychiatric: confusion - Constitutional Vitals: Temp Pulse Resp BP Pulse Ox 99 F 117 32 85/28 96 06/19/17 19:35 06/19/17 19:35 06/19/17 19:35 06/19/17 19:35 06/19/17 19:35 General appearance: Present: A&O X 0 - ENT ENT exam: Present: mucous membranes dry - Respiratory Respiratory exam: Present: CTAB. Absent: accessory muscle use, rales, rhonchi, wheezes - Cardiovascular Cardiovascular exam: Present: RRR, +S1, +S2, systolic murmur, tachycardia. Absent: diastolic murmur, gallop, rubs - Extremities Exam Extremities exam: Present: warm, radial pulses palpable and symmetrical. Absent : calf tenderness, cyanotic, pedal edema - Neurological Exam Neurological exam: Present: CN II-XII intact, oriented X3, no focal deficits. Absent: facial droop, speech deficit - Skin Skin exam: Present: dry, intact
[2017-06-20] MEDS ORDERED: Morphine Oral CONC 5 MG/0.25 ML ORAL.SYG PO PRN (02:04)
[2017-06-20] MEDS ORDERED: *HR* Morphine 2 MG/ML SYRINGE IVP PRN (02:06)
[2017-06-20] MEDS ORDERED: *HR* LORazepam 2 MG/ML VIAL IVP PRN (02:06)
[2017-06-20] MEDS: *HR* LORazepam Oral Conc 2 MG/ML PO PRN (02:21)
--- NOTE | 2017-06-20 10:51 | Palliative - Consult Note ---
Date of Encounter: 06/20/17 Time of Encounter: 10:00 - Assessment and Plan (1) Altered mental status Current Visit: Yes Status: Acute Assessment and plan: Patient is unresponisve. Cynthia Duggan reports deterioration in condition for over the past month. Patient with poor baseline function and cognition from end- stage dementia and past CVAs. Patient with left side paralysis of arm and leg. Was requiring crushed meds and thicken liquids at home. Olga Lidia reports that they were going to be enrolled in home hospice on June 25 through . They live in [place]. I discussed goals of taking patient home and Olga Lidia is just not sure if she can facilitate care as patient is now unresponsive and unable to take in medications. Olga Lidia declines labs or diagnostics exams and just desires the patient to be comfortable. Qualifiers: Altered mental status type: somnolence Qualified Code(s): R40.0 - Somnolence (2) Goals of care, counseling/discussion Current Visit: Yes Status: Acute Assessment and plan: Long bedside discussion with Cynthia/DANIELLA Duggan - # [phone]. She reports that patient has CVA last March and is now end-stage dementia. She has stopped eating and responding mentally. The patient is unconscious with a B/P 61 /37. The patient is frail with left sided paralysis. Goals are for patient to not have labs or diagnostics but rather to be kept comfortable until she passes. We discussed goals of passing. I explained that the if she desired to take patient home with [facility] that we could plan DC in AM. Olga Lidia is not sure if she has resources to care for her at home. She will discuss with . The patient is a with no children. I explained that patient appears to have overall poor prognosis and is requiring O2 via nonrebreather now with a BP of 61/37 that may be imminent. We discussed transition to inpatient hospice tomorrow if the patient survives then next 24 hours. I discussed that if the patient were to stabilize that a home transition would be warranted. Lyndon verbalized understanding and I adjusted her medications for comfort and provided support. Case discussed with Dr. Paredes. (3) History of CVA (cerebrovascular accident) Current Visit: No Status: Acute (4) Dementia Current Visit: Yes Status: Chronic Qualifiers: Dementia type: Alzheimer's disease Alzheimer's disease onset: late-onset Dementia behavioral disturbance: with behavioral disturbance Qualified Code(s) : G30.1 - Alzheimer's disease with late onset; F02.81 - Dementia in other diseases classified elsewhere with behavioral disturbance Palliative-CN HPI - Data of Consult Patient: new to practice Consult date: 06/20/17 Requesting Physician: Reinier Scott MD Primary Care Provider: Paco Parker CNP - Consult Narrative Palliative Care/Comfort Measures: Palliative care Reason for consult: Symptom management, comfort care transition History of present illness: Ms. Hester is a 86 year old female with a history of progressive end-stage Alzheimer's dementia, atrial fibrillation, diabetes, CVA, hypertension and hypothyroidism was brought to the ER by her Niece (Olga Lidia Sanchez - # [phone]) as she has been increasingly declining with regards to her activities of daily living and has been increasingly bed bound at home. This has been going on for the past month. Patient currently is very somnolent and not responding to commands. History has been obtained through the patient's niece who is her primary caregiver and POA. Olga Lidia reports that patient has a history of CVA with left side paralysis. The patient has not eaten for 4 days. She requires thicken liquids and crushed medications. Olga Lidia was to have the patient enrolled into home hospice on on Jun 25 but reports that the patient has now become unresponsive and unable to participate in any activities or take in food. She reports that the patients last BM was 3 days ago. She now wishes that the patient be transitioned to hospice care. This palliative care consult is for symptom management and transition to hospice care. CC: Aggie Paredes MD Past Med Surg Social Fam HX - Past Medical History Source: old records reviewed, obtained from family, nursing notes reviewed Medical history: arthritis, atrial fibrillation, dementia, diabetes, hyperlipidemia, hypertension, osteoporosis, thyroid disease, other Psychiatric history: anxiety, depression, other - Past Surgical History Surgical History: hip replacement, other - Social History Smoking Status: Former smoker Smokeless Tobacco Status: No Alcohol use: none Drug use: none - Family History Sister Adopted: [place]: Wagner Sanchez Family Member Ethnicity: Non- Twin of Family Member: Yes, Fraternal Living Status: Age at : 85 Cause of : emphysema Hx Family Cardiac Disorders: No Hx Family Respiratory Disorders: Yes Hx Family Cancer: No Hx Family GI Disorders: No Hx Family Genitourinary Disorders: No Hx Family Endocrine Disorder: No Hx Family Neuromuscular Disorders: No Hx Family Neurologic Disorders: No Hx Family HEENT Disorders: No Hx Family Autoimmune Disorders: No Hx Family Reproductive Disorders: No Medications and Allergies Donepezil HCl [Donepezil HCl Odt] 10 mg PO HS 02/09/16 [History] Levothyroxine [Synthroid] 100 mcg PO DAILY 02/09/16 [History] Lisinopril [Zestril] 10 mg PO BID 02/09/16 [History] Diltiazem HCl [Cartia Xt] 180 mg PO DAILY 05/26/16 [History] Glimepiride 1 mg PO DAILY 05/26/16 [History] clonazePAM [Klonopin] 0.5 mg PO QID 05/26/16 [History] Aspirin 81 mg PO HS 08/14/16 [History] HYDROcodone/Acet 5/325 mg [Morgan 5-325 mg] 1 tab PO Q6H PRN 08/14/16 [History] Tramadol HCl [Ultram] 50 mg PO QID PRN 08/14/16 [History] 3 Allergy/AdvReac Type Severity Reaction Status Date / Time No Known Allergies Allergy Verified 01/10/17 10:55 ROS unobtainable: due to mental status (Patient is unresponisve) - Constitutional Constitutional ROS PAL: fatigue, frequent falls, lethargy, weight loss - EENT Eyes: requires corrective lenses - Cardiovascular Cardiovascular ROS: as per HPI - Respiratory Respiratory: as per HPI - Gastrointestinal Gastrointestinal: as per HPI - Genitourinary Palliative ROS female: as per HPI (incontinent) - Musculoskeletal Musculoskeletal ROS IM: muscle weakness - Integumentary ROS Integumentary: skin ulcer (decubitus to coccyx) - Neurological Neurological ROS: weakness - Psychiatric Psychiatric general PM: as per HPI Palliative Care-Exam - Constitutional Vitals: Temp Pulse Resp BP Pulse Ox 97.5 F L 76 21 61/37 96 06/20/17 08:04 06/20/17 08:04 06/20/17 08:04 06/20/17 08:04 06/20/17 08:04 General appearance: Present: mild distress (Respirations labored. Nonrebreather mask on) - Head Head Exam: Present: atraumatic - Eye Eye exam: Present: PERRL - ENT ENT exam: Present: mucous membranes moist - Respiratory Respiratory exam: Present: decreased breath sounds, tachypnea - Expanded Respiratory Exam Location: decreased breath sounds: Left, Right, Lower - Cardiovascular Cardiovascular exam: Present: RRR, +S1, +S2 - Expanded Cardiovascular Exam Peripheral pulses: 1+: Femoral (L) PM, Femoral (R) PM, Posterior Tibialis (L), Posterior Tibialis (R), 2+: Carotid (L) PM, Carotid (R) PM, Radial (L), Radial ( R), Dorsalis Pedis (L) PM, Dorsalis Pedis (R) PM - GI/Abdominal Exam GI/Abdominal exam: Present: normal bowel sounds - External exam: Present: normal external exam (Attends on) - Extremities Exam Extremities exam: Present: tenderness (left shoulder, arm flaccid) - Expanded Upper Extremities Exam Shoulder exam: Present: tenderness (left shoulder) - Neurological Exam Neurological exam: Present: altered (unresponsive) - Expanded Neurological Exam Coma Scale Eye Opening: None Coma Scale Motor Response: Withdraws to Pain Coma Scale Verbal Response: None Coma Scale Total: 6 - Psychiatric Psychiatric exam: Present: flat affect - Skin Skin exam: Present: normal color, warm Consult Discharge Plan - Plan Referrals: Paco Parker CNP [Primary Care Provider] - Palliative Quality Palliative Quality: Screen for Code Status: Yes, Screen for Goals of Care: Yes, Screen for Pain: Yes, If Pain Regimen Started, Initiate Bowel Regimen: Yes, Screen for Nausea/Vomitting: Yes Code Status: 06/19/17 21:56 Resuscitation Status: Active [RES] Routine Comment: Resuscitation Status: DNR-Comfort Care
--- NOTE | 2017-06-20 16:18 | Internal Med Progress Note ---
Date of Encounter: 06/20/17 Time of Encounter: 11:00 - Assessment and plan (1) Failure to thrive in adult Current Visit: Yes Status: Acute Assessment and plan: Patient admitted with poor oral intake, functional decline, generalized weakness and lethargy. Noted to have underlying dementia with poor functional status; Plan of care discussed with patient's niece, power of deputy attorney general, at bedside. Blood draws have been attempted in the emergency room, stopped after a couple of attempts. Family chooses to keep the patient comfortable at this time. No labs, no imaging studies available. Palliative care consulted, consult appreciated. Continue sublingual Ativan and morphine for symptom control. Continue supplemental oxygen, currently requiring 15 L nonrebreather mask. Plan to transition patient to inpatient hospice tomorrow with eventual discharge to home hospice, depending on her clinical condition. (2) Respiratory failure Current Visit: Yes Status: Acute Qualifiers: Chronicity: acute Respiratory failure complication: hypoxia Qualified Code(s): J96.01 - Acute respiratory failure with hypoxia (3) Decubitus ulcers Current Visit: Yes Status: Chronic Qualifiers: Pressure ulcer location: sacral region Pressure ulcer stage: stage 2 Qualified Code(s): L89.152 - Pressure ulcer of sacral region, stage 2 (4) Chronic atrial fibrillation Current Visit: Yes Status: Chronic (5) History of CVA (cerebrovascular accident) Current Visit: Yes Status: Chronic (6) Goals of care, counseling/discussion Current Visit: Yes Status: Acute (7) Diabetes Current Visit: Yes Status: Chronic Qualifiers: Diabetes mellitus type: type 2 Diabetes mellitus complication status: with unspecified complications Diabetes mellitus ferry terminal agent insulin use: without skilled nursing use Qualified Code(s): E11.8 - Type 2 diabetes mellitus with unspecified complications (8) Hypothyroidism Current Visit: Yes Status: Chronic Qualifiers: Hypothyroidism type: acquired Qualified Code(s): E03.9 - Hypothyroidism, unspecified (9) Hypertension Current Visit: Yes Status: Chronic Qualifiers: Hypertension type: essential hypertension Qualified Code(s): I10 - Essential (primary) hypertension (10) Dementia Current Visit: Yes Status: Chronic Qualifiers: Dementia type: Alzheimer's disease Alzheimer's disease onset: late-onset Dementia behavioral disturbance: without behavioral disturbance Qualified Code (s): G30.1 - Alzheimer's disease with late onset; F02.80 - Dementia in other diseases classified elsewhere without behavioral disturbance; F02.80 - Dementia in other diseases classified elsewhere without behavioral disturbance; F02.80 - Dementia in other diseases classified elsewhere without behavioral disturbance - Subjective Interval history: Patient is lethargic, not responsive, unable to provide history. Plan of care discussed with patient's niece, power of deputy attorney general at bedside. Brought into the hospital for declining functional status, poor oral intake at home, respiratory distress. Plan for hospice/comfort care. - Constitutional Vitals: Temp Pulse Resp BP Pulse Ox 97.5 F L 76 21 61/37 96 06/20/17 08:04 06/20/17 08:04 06/20/17 08:04 06/20/17 08:04 06/20/17 10:01 General appearance: Present: A&O X 0 (Somnolent). Absent: answers questions appropriately - Respiratory Respiratory exam: Present: CTAB (anterolaterally; shallow and slow breathing). Absent: accessory muscle use, rales, rhonchi, wheezes - Cardiovascular Cardiovascular exam: Present: RRR, +S1, +S2. Absent: diastolic murmur, gallop, rubs, systolic murmur - GI/Abdominal GI/Abdominal exam: Present: normal bowel sounds, soft, no peritoneal signs. Absent: distended, tenderness - Extremities Exam Extremities exam: Present: pedal edema, warm, radial pulses palpable and symmetrical. Absent: calf tenderness, cyanotic - Neurological Exam Neurological exam: Present: altered (somnolent, not responding to tactile/ verbal stimulus), no focal deficits (further exam cannot be completed, cannot follow commands). Absent: pronater drift, facial droop, speech deficit Consult Discharge Plan - Plan Referrals: Paco Parker MECHANICAL DESIGNER [Primary Care Provider] -
[2017-06-21] MEDS: *HR* LORazepam Oral Conc 2 MG/ML PO PRN ×2 (01:11→09:47)
[2017-06-21 08:03] VITALS: BP 75/45
[2017-06-21] MEDS ORDERED: MORPHINE SUL Oral CONC 10 MG/0.5 ML ORAL.SYG PO PRN (08:45)
--- NOTE | 2017-06-21 09:30 | Palliative Progress Note ---
Date of Encounter: 06/21/17 Time of Encounter: 09:00 - Assessment and plan (1) History of CVA (cerebrovascular accident) Current Visit: Yes Status: Chronic Assessment and plan: The patient is not verbal, sponsorship to any verbal stimulus. He due to the history of dementia or the CVA this is an acute event I consider this to be acute delirium possibly secondary to another CVA. Will be going hospice today. Family did not want any workup done, therefore the source of the delirium is open to conjecture. However the patient will be when hospice today we will treat with comfort measures only. (2) Respiratory failure Current Visit: Yes Status: Acute Assessment and plan: On high flow oxygen at this time. Family did not want any workup done therefore the patient will be just treated for comfort measures only. Qualifiers: Chronicity: acute Respiratory failure complication: hypoxia Qualified Code(s): J96.01 - Acute respiratory failure with hypoxia (3) Goals of care, counseling/discussion Current Visit: Yes Status: Acute Assessment and plan: DNR comfort care, switching over to general inpatient hospice this morning. This will be for breathing, mental diagnosis is CVA, with secondary dementia - Time Spent With Patient Total time spent is greater than 50% in coordination of care (as documented) at patient's floor/unit and/or counseling patient: - Subjective Interval history: pt unresponsive to verbal no events overnight - Constitutional General appearance: Present: no acute distress - Head Head exam: Present: atraumatic, normal inspection - Eye Eye exam: Present: normal appearance - ENT ENT exam: Present: mucous membranes moist - Respiratory Respiratory exam: Present: rhonchi - Cardiovascular Cardiovascular exam: Present: irregular rhythm - GI/Abdominal GI/Abdominal exam: Present: normal bowel sounds, soft. Absent: tenderness - Extremities Exam Extremities exam: Present: normal inspection. Absent: pedal edema, tenderness - Neurological Exam Neurological exam: Present: altered - Psychiatric Psychiatric exam: Absent: agitated, anxious - Skin Skin exam: Present: dry, warm Palliative Quality Palliative Quality: Screen for Code Status: Yes, Screen for Goals of Care: Yes, Screen for Pain: Yes, If Pain Regimen Started, Initiate Bowel Regimen: Yes, Screen for Nausea/Vomitting: Yes Code Status: 06/19/17 21:56 Resuscitation Status: Active [RES] Routine Comment: Resuscitation Status: DNR-Comfort Care Consult Discharge Plan - Plan Referrals: Paco Parker, ANGELIA [Primary Care Provider] -
[2017-06-21] MEDS: Atropine Sulfate 1% 40 DROP/2 ML BOTTLE SL PRN ×3 (09:48→11:57)
--- NOTE | 2017-06-21 10:32 | Discharge Summary ---
Date of Encounter: 06/21/17 Time of Encounter: 10:30 - Discharge Diagnosis (1) Failure to thrive in adult Priority: Primary Status: Acute (2) Respiratory failure Priority: Primary Status: Acute Qualifiers: Chronicity: acute Respiratory failure complication: hypoxia Qualified Code(s): J96.01 - Acute respiratory failure with hypoxia (3) Decubitus ulcers Priority: Secondary Status: Chronic Qualifiers: Pressure ulcer location: sacral region Pressure ulcer stage: stage 2 Qualified Code(s): L89.152 - Pressure ulcer of sacral region, stage 2 (4) Chronic atrial fibrillation Priority: Secondary Status: Chronic (5) History of CVA (cerebrovascular accident) Priority: Secondary Status: Chronic (6) Goals of care, counseling/discussion Priority: Primary Status: Acute (7) Diabetes Priority: Secondary Status: Chronic Qualifiers: Diabetes mellitus type: type 2 Diabetes mellitus complication status: with unspecified complications Diabetes mellitus group home insulin use: without terminal operations supervisor use Qualified Code(s): E11.8 - Type 2 diabetes mellitus with unspecified complications (8) Hypothyroidism Priority: Secondary Status: Chronic Qualifiers: Hypothyroidism type: acquired Qualified Code(s): E03.9 - Hypothyroidism, unspecified (9) Hypertension Priority: Secondary Status: Chronic Qualifiers: Hypertension type: essential hypertension Qualified Code(s): I10 - Essential (primary) hypertension (10) Dementia Priority: Secondary Status: Chronic Qualifiers: Dementia type: Alzheimer's disease Alzheimer's disease onset: late-onset Dementia behavioral disturbance: without behavioral disturbance Qualified Code (s): G30.1 - Alzheimer's disease with late onset; F02.80 - Dementia in other diseases classified elsewhere without behavioral disturbance; F02.80 - Dementia in other diseases classified elsewhere without behavioral disturbance; F02.80 - Dementia in other diseases classified elsewhere without behavioral disturbance - Discharge Medications Home Medications: Donepezil HCl [Donepezil HCl Odt] 10 mg PO HS 02/09/16 [History] Levothyroxine [Synthroid] 100 mcg PO DAILY 02/09/16 [History] Lisinopril [Zestril] 10 mg PO BID 02/09/16 [History] Diltiazem HCl [Cartia Xt] 180 mg PO DAILY 05/26/16 [History] Glimepiride 1 mg PO DAILY 05/26/16 [History] clonazePAM [Klonopin] 0.5 mg PO QID 05/26/16 [History] Aspirin 81 mg PO HS 08/14/16 [History] Allergies/Adverse Reactions: 3 Allergy/AdvReac Type Severity Reaction Status Date / Time No Known Allergies Allergy Verified 06/20/17 11:30 Date of admission: 06/19/17 20:45 Primary care physician: Paco Parker CNP Consults: 06/19/17 21:58 Consult to Palliative Care [CONS] Routine Comment: Consulting Provider: Palliative Care [facility] Reason for Consult: Failure to thrive Call Completed: No Discharging clinician: Aggie Paredes Anticipated date of discharge: 06/21/17 - Patient Status Disposition: Hospice - Medical Facility Condition: Critical Functional capacity at discharge: bed bound Overall status at discharge: patient is not back to baseline - Discharge Instructions Follow Up With: Paco Parker CNP [Primary Care Provider] - - Diet and Activity Activity: wear oxygen at all times Hospital course: Ms. Hester is a 86 year old female with h/o- dementia and progressive functional decline, was brought in by family with poor oral intake and respiratory distress and appeared to be "dying". SHe was going to be enrolled in Home Hospice on 06/25/17. Patient was lethargic and somnolent and history was provided by her POA, harry Duggan. Multiple attempts at obtaining IV access and blood draws in the ER have been unsuccessful and POA refused further trials , so no diagnostic studies or labs are available for this admission. Per niece, patient is to be kept comfortable; code status has been accordingly changed to DNR-CC and managed on Hospice care with supplemental O2, PRN sublingual Morphine and Ativan. Hospice/palliative care was consulted and patient will be admitted to inaptient Hospice care, being discharged from Hospitalist service; plan and goals of care discussed with POA in detail. - Time Spent with Patient Total time spent providing and/or coordinating discharge services: Greater than 30 minutes (40 min) - Constitutional Vitals: Temp Pulse Resp BP Pulse Ox 97.7 F 83 21 75/45 97 06/21/17 07:58 06/21/17 07:58 06/21/17 07:58 06/21/17 07:58 06/21/17 08:30 General appearance: Present: A&O X 0 (Somnolent). Absent: answers questions appropriately - Cardiovascular Cardiovascular exam: Present: irregular rhythm, +S1, +S2. Absent: diastolic murmur, gallop, rubs, systolic murmur
[2017-06-21] MEDS: MORPHINE SUL Oral CONC 10 MG/0.5 ML ORAL.SYG PO PRN ×2 (10:46→12:59)
== END 2017-06-21 13:04 | disposition hospice, inpatient (51) ==
LOC: 2ANU 19:22 → EMEROO 19:22 → SUATTDRO 20:45 → 2ANU 21:28
PROVIDERS: ADMIT Internal Medicine Hematology & Oncology; ATTEND Internal Medicine

== ENCOUNTER 2017-06-21 09:27 | Inpatient (IN) ==
--- NOTE | 2017-06-21 09:43 | Pallative History & Physical ---
Date of Encounter: 06/21/17 Time of Encounter: 09:30 Assessment and Plan (1) Altered mental status Status: Acute Probably multifactorial in nature, however given the fact the family did not want have any workup done we will treat it as being a new CVA and/or extension of the dementia. At this point in time that hospice diagnosis will be CVA with a secondary of dementia. Qualifiers: Altered mental status type: somnolence Qualified Code(s): R40.0 - Somnolence (2) Goals of care, counseling/discussion Status: Acute Do not comfort care, patient is a hospice general inpatient. Hospice diagnosis is CVA with secondary of dementia. So do not failure to thrive. We will watch for improvement and see about maybe getting her home tomorrow or Wednesday. (3) Respiratory failure Status: Acute cont o2 and inhalers. Qualifiers: Chronicity: acute Respiratory failure complication: hypoxia Qualified Code(s): J96.01 - Acute respiratory failure with hypoxia (4) History of CVA (cerebrovascular accident) Status: Chronic Internal Medicine - H&P: HPI Admitted From: Intrahospital Transfer Plans for Post Hospital Care: Hospice - Home History of present illness: Ms. Hester is a 86 year old female With a history of CVA, dementia general decline that has been marked over the last couple of months me and completely unresponsive herbal or even did some tactile stimuli to focal Rahat breathing on arrival to the hospital family wanted hospice only comfort type care. Is being transitioned to general inpatient hospice or other evaluation as to how soon she is going to pass and to arrange to have everything set up at home. This time the patient is unresponsive has no complaints of and appears to be comfortable. Past Med Surg Social Fam HX - Past Medical History Medical history: arthritis, atrial fibrillation, dementia, diabetes, hyperlipidemia, hypertension, osteoporosis, thyroid disease, other Psychiatric history: anxiety, depression, other - Past Surgical History Surgical History: hip replacement, other - Social History Smoking Status: Former smoker Smokeless Tobacco Status: No Alcohol use: none Drug use: none - Family History Sister Adopted: No Family Member Ethnicity: Non- Twin of Family Member: Yes, Fraternal Living Status: Hx Family Cardiac Disorders: No Hx Family Respiratory Disorders: Yes Hx Family Cancer: No Hx Family GI Disorders: No Hx Family Endocrine Disorder: No Hx Family Neuromuscular Disorders: No Hx Family Neurologic Disorders: No Hx Family HEENT Disorders: No Hx Family Autoimmune Disorders: No Internal Medicine - H&P: Meds Donepezil HCl [Donepezil HCl Odt] 10 mg PO HS 02/09/16 [History] Levothyroxine [Synthroid] 100 mcg PO DAILY 02/09/16 [History] Lisinopril [Zestril] 10 mg PO BID 02/09/16 [History] Diltiazem HCl [Cartia Xt] 180 mg PO DAILY 05/26/16 [History] Glimepiride 1 mg PO DAILY 05/26/16 [History] clonazePAM [Klonopin] 0.5 mg PO QID 05/26/16 [History] Aspirin 81 mg PO HS 08/14/16 [History] 3 Allergy/AdvReac Type Severity Reaction Status Date / Time No Known Allergies Allergy Verified 06/20/17 11:30 ROS unobtainable: due to mental status Palliative Care-Exam - Constitutional General appearance: Present: no acute distress - Head Head Exam: Present: atraumatic, normal inspection - ENT ENT exam: Present: mucous membranes moist - Respiratory Respiratory exam: Present: decreased breath sounds (Slightly decreased mostly a lot of airway noise), rhonchi - Cardiovascular Cardiovascular exam: Present: irregular rhythm (Somewhat irregular. Not markedly so) - GI/Abdominal Exam GI/Abdominal exam: Present: normal bowel sounds, soft. Absent: tenderness - Neurological Exam Neurological exam: Present: altered - Psychiatric Psychiatric exam: Absent: agitated, anxious - Skin Skin exam: Present: dry, warm Palliative Quality Palliative Quality: Screen for Code Status: Yes, Screen for Goals of Care: Yes, Screen for Pain: Yes, If Pain Regimen Started, Initiate Bowel Regimen: Yes, Screen for Nausea/Vomitting: Yes
[2017-06-21] MEDS ORDERED: *HR* LORazepam 2 MG/ML VIAL IVP PRN (09:47)
[2017-06-21] MEDS ORDERED: Bisacodyl 10 MG RECTAL SUPPOSITORY RC PRN (09:47)
[2017-06-21] MEDS ORDERED: Albuterol 2.5 MG/3 ML NEBULIZER IH PRN (09:47)
[2017-06-21] MEDS ORDERED: Acetaminophen 650 MG RECTAL SUPP RC PRN (09:47)
[2017-06-21] MEDS ORDERED: Haloperidol Oral Conc 10 MG/5 ML UDC PO PRN (09:47)
[2017-06-21] MEDS ORDERED: Morphine Oral CONC 5 MG/0.25 ML ORAL.SYG PO PRN (09:47)
--- NOTE | 2017-06-21 09:57 | Event Note ---
Date of Encounter: 06/21/17 Time of Encounter: 09:55 Hospice medical support assistant certification of terminal illness: Hospice benefit. Start: 06/21/2017 Hospice benefit. In: +90 days Palliative performance scale: 10-20% History: Patient has a history of CVA and dementia. Patient has been having worsening symptoms of decreasing ability to stay with a care for the last couple of weeks. Prior to actual admission the patient became completely unresponsive. As the patient and family wish to have no more aggressive care and the patient is completely unresponsive unable to take any nutrition and there is no plans for artificial feeding. in addition lungs also sound poor, there is no plans to work this up is at high rate of oxygen use therefore I believe that These findings support a life expectancy of 6 months or less. I attest that I have compose the above narrative based on my review of the patient's medical records, and or on my examination of the patient. Kavin Israel M.D. Associate program medical director. [facility]
[2017-06-21] MEDS: *HR* LORazepam Oral Conc 2 MG/ML PO PRN ×3 (13:51→20:07)
[2017-06-21] MEDS: Atropine Sulfate 1% 40 DROP/2 ML BOTTLE SL PRN ×3 (13:52→17:38)
[2017-06-21] MEDS: MORPHINE SUL Oral CONC 10 MG/0.5 ML ORAL.SYG PO PRN ×3 (14:31→17:37)
--- NOTE | 2017-06-22 09:36 | Death Note ---
Discharge Sum: Summary - Date and Time Date of admission: 06/21/17 13:17 Date of : 06/21/17 Time of : 22:44 - Summary Details: The patient was in general inpatient hospice for management of a fairly steep decline recently. Duration mental status being markedly noticeable with respiratory illness for the last 72 hours. Patient was transitioned to general inpatient early on the day of passing. Passed quietly and comfortably family at bedside. Cause of is respiratory failure or days. She also had a history of CVA, as well as dementia She was a former smoker a probable contribution to . Morbidities A for atrial fibrillation diabetes dementia hypertension and thyroid disease. - Additional Data Confirmation of as documented by pronouncing clinician: no pulse, no respirations, no heart sounds Family: at bedside Attending/PCP notified?: Yes Attending physician: Kavin Israel MD Was code activated?: No Autopsy requested?: No facility examiner notified?: No Organ bank notified?: Yes Advance directives: Yes Hospice patient?: Yes Discharge Sum: Diag - PCOD Probable Cause of : Respiratory arrest Discharge Sum: Prov - Provider Primary care physician: Paco Parker CNP Consults: 06/21/17 09:47 Consult to Palliative Care [CONS] Routine Comment: Consulting Provider: Palliative Care [place] Reason for Consult: coverage Time Notified: 09:30 Call Completed: Yes
== END 2017-06-21 21:44 | disposition expired | DRG 189 ==
LOC: 2ANU 13:17
PROVIDERS: ADMIT Family Medicine Hospice and Palliative Medicine; ATTEND Family Medicine Hospice and Palliative Medicine